=== PATIENT | male | born 1945 | race Caucasian/White ===

== ENCOUNTER 2016-09-05 08:29 | Outpatient (CLI) | payer MEDICARE, BC | END 2016-09-05 08:30 | disposition home or self-care (01) | DX: I21.3 ST elevation (STEMI) myocardial infarction of unspecified site (principal); R31.9 Hematuria, unspecified; I10 Essential (primary) hypertension; E78.5 Hyperlipidemia, unspecified; D53.9 Nutritional anemia, unspecified ==

== ENCOUNTER 2016-09-07 08:56 | Outpatient (CLI) | payer MEDICARE, BC | END 2016-09-07 08:57 | disposition home or self-care (01) | DX: Z12.5 Encounter for screening for malignant neoplasm of prostate (principal) | CPT/HCPCS: 36415; G0103 ==

== ENCOUNTER 2017-04-01 08:00 | Outpatient (CLI) | payer MEDICARE, BC ==
[2017-04-01 18:15] LABS: BILIRUBIN,URINE NEGATIVE (NEGATIVE); PH,URINE 5.5 PH (5.0-7.5)
[2017-04-01 18:35] LABS: WBC,URINE 0-3 /HPF (0-3)
== END 2017-04-01 08:01 | disposition home or self-care (01) ==
LOC: LAB.F 08:00
PROVIDERS: ATTEND Internal Medicine
DX: M54.5 Low back pain (principal)
CPT/HCPCS: 81001

== ENCOUNTER 2017-05-29 12:22 | Outpatient (CLI) | payer MEDICARE, BC ==
[2017-05-29 11:48] LABS: BILIRUBIN,URINE NEGATIVE (NEGATIVE)
[2017-05-29 12:08] LABS: UR CULTURE IF IND NOT INDICATED; WBC,URINE 0-3 /HPF (0-3)
== END 2017-05-29 12:23 | disposition home or self-care (01) ==
LOC: LAB.R 12:22
PROVIDERS: ATTEND Nurse Practitioner Family
DX: R30.0 Dysuria (principal)
CPT/HCPCS: 81001; 87086

== ENCOUNTER 2018-05-08 08:22 | Outpatient (CLI) | payer MEDICARE, BC ==
[2018-05-08 10:36] LABS: HGB - HEMOGLOBIN 14.4 g/dL (14.0-18.0); MEAN CORPUSCULAR HEMOGLOBIN 35.6 pg (27.0-31.0); MEAN CORPUSCULAR HGB CONC 35.8 g/dL (32.0-36.0); MEAN CORPUSCULAR VOLUME 99.6 fL (80.0-94.0); MEAN PLATELET VOLUME 7.3 fL (7.4-11.4); RED BLOOD COUNT 4.04 10^6/uL (4.70-6.10); RED CELL DISTRIBUTION WIDTH 12.9 % (12.0-15.0); WHITE BLOOD COUNT 2.6 x10^3/uL (4.8-10.8)
[2018-05-08 10:55] LABS: ALBUMIN 4.4 g/dL (3.2-5.5); ALBUMIN/GLOBULIN RATIO 1.8 (1.0-2.2); ALKALINE PHOSPHATASE 49 IU/L (42-121); ALT ALANINE AMINOTRANSFERASE 29 IU/L (10-60); AST ASPARTATE AMINOTRANSFERASE 24 IU/L (10-42); BILIRUBIN,TOTAL 1.4 mg/dL (0.2-1.0); BUN - BLOOD UREA NITROGEN 6 mg/dL (6-20); CALCIUM 9.2 mg/dL (8.5-10.3); CARBON DIOXIDE - CO2 27 mmol/L (21-32); CHLORIDE 102 mmol/L (101-111); CHOL/HDL RATIO 3.8 (<5.0); CHOLESTEROL 187 mg/dL; CREATININE 0.9 mg/dL (0.6-1.2); GFR - MDRD 83 (>89); GLUCOSE 107 mg/dL (70-100); HDL CHOLESTEROL 49 mg/dL; LDL CHOLESTEROL,CALCULATED 98 mg/dL; SODIUM 138 mmol/L (135-145); TOTAL PROTEIN 6.9 g/dL (6.7-8.2); VLDL CHOLESTEROL 40 mg/dL
== END 2018-05-08 08:23 | disposition home or self-care (01) ==
LOC: LAB.F 08:22
PROVIDERS: ATTEND Internal Medicine
DX: R53.83 Other fatigue (principal); E78.5 Hyperlipidemia, unspecified
CPT/HCPCS: 36415; 80053; 80061; 83721; 84443; 85027

== ENCOUNTER 2018-09-17 08:00 | Outpatient (CLI) | payer MEDICARE, BC ==
[2018-09-17 17:50] LABS: HGB - HEMOGLOBIN 15.3 g/dL (14.0-18.0); MEAN CORPUSCULAR HEMOGLOBIN 34.7 pg (27.0-31.0); MEAN CORPUSCULAR HGB CONC 34.7 g/dL (32.0-36.0); MEAN CORPUSCULAR VOLUME 100.2 fL (80.0-94.0); MEAN PLATELET VOLUME 7.4 fL (7.4-11.4); RED BLOOD COUNT 4.4 10^6/uL (4.70-6.10); RED CELL DISTRIBUTION WIDTH 13.2 % (12.0-15.0); WHITE BLOOD COUNT 2.8 x10^3/uL (4.8-10.8)
[2018-09-17 18:16] LABS: HB2 TOTAL 17.1 g/dL; HEMOGLOBIN A1C 0.56 g/dL; HEMOGLOBIN A1C % 5.1 % (4.6-6.2)
[2018-09-17 18:26] LABS: ALBUMIN 4.8 g/dL (3.2-5.5); ALBUMIN/GLOBULIN RATIO 1.8 (1.0-2.2); ALKALINE PHOSPHATASE 56 IU/L (42-121); ALT ALANINE AMINOTRANSFERASE 48 IU/L (10-60); AST ASPARTATE AMINOTRANSFERASE 33 IU/L (10-42); BILIRUBIN,TOTAL 1.3 mg/dL (0.2-1.0); BUN - BLOOD UREA NITROGEN 14 mg/dL (6-20); CALCIUM 9.8 mg/dL (8.5-10.3); CARBON DIOXIDE - CO2 28 mmol/L (21-32); CHLORIDE 104 mmol/L (101-111); CHOL/HDL RATIO 4.4 (<5.0); CHOLESTEROL 212 mg/dL; CREATININE 0.9 mg/dL (0.6-1.2); GFR - MDRD 83 (>89); GLUCOSE 105 mg/dL (70-100); HDL CHOLESTEROL 48 mg/dL; LDL CHOLESTEROL,CALCULATED 96 mg/dL; SODIUM 140 mmol/L (135-145); TOTAL PROTEIN 7.4 g/dL (6.7-8.2); VLDL CHOLESTEROL 68 mg/dL
== END 2018-09-17 23:59 | disposition home or self-care (01) ==
LOC: LAB.F 08:00
PROVIDERS: ATTEND Internal Medicine
DX: R06.00 Dyspnea, unspecified (principal); R73.01 Impaired fasting glucose; E78.5 Hyperlipidemia, unspecified; R53.83 Other fatigue
CPT/HCPCS: 36415; 80053; 80061; 83036; 83721; 84443; 85027

== ENCOUNTER 2018-09-20 10:28 | Outpatient (CLI) | payer MEDICARE, BC ==
--- NOTE | 2018-09-22 00:59 | XRAY Report ---
Reason: FATIGUE,DYSPNEA ON EXERTION Procedure Date: 09/20/2018 Accession Number: [id number] / [id number] Procedure: XR - Chest 2 View X-Ray CPT Code: 14576 FULL RESULT: EXAM: CHEST RADIOGRAPHY EXAM DATE: 09/20/2018 02:47 PM. CLINICAL HISTORY: FATIGUE, DYSPNEA ON EXERTION. COMPARISON: CHEST 2 VIEW PA/LAT 08/13/2015 2:20 PM. TECHNIQUE: 2 views. FINDINGS: Lungs/Pleura: No focal opacities evident. No pleural effusion. No pneumothorax. Normal volumes. Mediastinum: Heart and mediastinal contours are unremarkable. Other: Moderate mid and lower thoracic spine degenerative disk disease. IMPRESSION: No acute cardiopulmonary disease seen. RADIA
== END 2018-09-20 10:29 | disposition home or self-care (01) ==
LOC: DI 10:28
PROVIDERS: ATTEND Internal Medicine
DX: R53.83 Other fatigue (principal); R06.00 Dyspnea, unspecified
CPT/HCPCS: 71046

== ENCOUNTER 2018-10-21 08:00 | Outpatient (CLI) | payer MEDICARE, BC | END 2018-10-21 23:59 | disposition home or self-care (01) | LOC: LAB.F 08:00 | PROVIDERS: ATTEND Physician Assistant Medical | DX: E86.0 Dehydration (principal); J02.9 Acute pharyngitis, unspecified | CPT/HCPCS: 81002 ==

== ENCOUNTER 2019-03-11 14:03 | Outpatient (CLI) | payer MEDICARE, BC | END 2019-03-11 14:04 | disposition critical access hospital (66) | LOC: EMS 14:03 | PROVIDERS: ATTEND Surgery | DX: T63.461A Toxic effect of venom of wasps, accidental (unintentional), initial encounter (principal); M79.641 Pain in right hand; R07.9 Chest pain, unspecified | CPT/HCPCS: A0425; A0427 ==

== ENCOUNTER 2019-03-11 14:05 | Emergency (ER) | payer MEDICARE, BC ==
[2019-03-11] MEDS ORDERED: predniSONE 20 MG TABLET PO STA (14:27)
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
[2019-03-11 15:28] VITALS: BP 155/99
== END 2019-03-11 15:10 | disposition home or self-care (01) ==
LOC: EDUNIT# → ED 14:05
DX: T63.443A Toxic effect of venom of bees, assault, initial encounter (principal); I10 Essential (primary) hypertension
CPT/HCPCS: 99283; 99284; J7512

== ENCOUNTER 2019-06-04 09:34 | Outpatient (CLI) | payer MEDICARE, BC ==
[2019-06-04 18:11] LABS: ALBUMIN 4.6 g/dL (3.2-5.5); ALBUMIN/GLOBULIN RATIO 1.8 (1.0-2.2); ALKALINE PHOSPHATASE 51 IU/L (42-121); ALT ALANINE AMINOTRANSFERASE 32 IU/L (10-60); AST ASPARTATE AMINOTRANSFERASE 25 IU/L (10-42); BILIRUBIN,TOTAL 1.4 mg/dL (0.2-1.0); BUN - BLOOD UREA NITROGEN 17 mg/dL (6-20); CALCIUM 9.4 mg/dL (8.5-10.3); CARBON DIOXIDE - CO2 29 mmol/L (21-32); CHLORIDE 106 mmol/L (101-111); CHOL/HDL RATIO 3.5 (<5.0); CHOLESTEROL 154 mg/dL; CREATININE 0.8 mg/dL (0.6-1.2); GFR - MDRD 94 (>89); GLUCOSE 99 mg/dL (70-100); HDL CHOLESTEROL 44 mg/dL; LDL CHOLESTEROL,CALCULATED 78 mg/dL; LDL/HDL RATIO 1.8 (<3.6); SODIUM 139 mmol/L (135-145); TOTAL PROTEIN 7.2 g/dL (6.7-8.2); VLDL CHOLESTEROL 32 mg/dL
== END 2019-06-04 09:35 | disposition home or self-care (01) ==
LOC: LAB.S 09:34
PROVIDERS: ATTEND Internal Medicine
DX: E78.5 Hyperlipidemia, unspecified (principal)
CPT/HCPCS: 36415; 80053; 80061; 83721

== ENCOUNTER 2019-08-26 12:48 | Outpatient (CLI) | payer MEDICARE, BC ==
[2019-08-26 17:23] LABS: BASOPHILS % (AUTO) 0.6 %; EOSINOPHILS # (AUTO) 0.1 10^3/uL (0.0-0.7); EOSINOPHILS % (AUTO) 1.7 %; HGB - HEMOGLOBIN 14.3 g/dL (14.0-18.0); LYMPHOCYTES # (AUTO) 1.3 10^3/uL (1.5-3.5); LYMPHOCYTES % (AUTO) 26.5 %; MEAN CORPUSCULAR HEMOGLOBIN 34.7 pg (27.0-31.0); MEAN CORPUSCULAR HGB CONC 33.6 g/dL (32.0-36.0); MEAN CORPUSCULAR VOLUME 103.4 fL (80.0-94.0); MEAN PLATELET VOLUME 9.5 fL (7.4-11.4); MONOCYTES # (AUTO) 0.4 10^3/uL (0.0-1.0); MONOCYTES % (AUTO) 7.8 %; PLT - PLATELET COUNT 174 10^3/uL (130-450); RED BLOOD COUNT 4.12 10^6/uL (4.70-6.10); RED CELL DISTRIBUTION WIDTH 12.6 % (12.0-15.0); WHITE BLOOD COUNT 4.8 x10^3/uL (4.8-10.8)
[2019-08-26 18:07] LABS: ALBUMIN 4.5 g/dL (3.2-5.5); ALBUMIN/GLOBULIN RATIO 1.6 (1.0-2.2); BILIRUBIN,TOTAL 1.2 mg/dL (0.2-1.0); CALCIUM 9.7 mg/dL (8.5-10.3); CREATININE 0.9 mg/dL (0.6-1.2); CRP - C-REACTIVE PROTEIN 4.7 mg/dL (0-1.0); TOTAL PROTEIN 7.4 g/dL (6.7-8.2)
== END 2019-08-26 23:59 | disposition home or self-care (01) ==
LOC: LAB.S 12:48
PROVIDERS: ATTEND Family Medicine
DX: R10.9 Unspecified abdominal pain (principal); I10 Essential (primary) hypertension
CPT/HCPCS: 36415; 80053; 84443; 85025; 85651; 86140

== ENCOUNTER 2019-08-27 08:00 | Outpatient (CLI) | payer MEDICARE, BC | END 2019-08-27 23:59 | disposition home or self-care (01) | LOC: LAB.R 08:00 | PROVIDERS: ATTEND Family Medicine | DX: R10.9 Unspecified abdominal pain (principal) | CPT/HCPCS: 82274 ==

== ENCOUNTER 2019-09-03 18:48 | Outpatient (CLI) | payer MEDICARE, BC | END 2019-09-03 23:59 | disposition home or self-care (01) | LOC: LAB.R 18:48 | PROVIDERS: ATTEND Family Medicine | DX: K57.92 Diverticulitis of intestine, part unspecified, without perforation or abscess without bleeding (principal) | CPT/HCPCS: 82270 ==

== ENCOUNTER 2020-02-11 05:00 | Outpatient (CLI) | payer MEDICARE, BC | END 2020-02-11 23:59 | LOC: LAB.R 05:00 | PROVIDERS: ATTEND Family Medicine | DX: K57.92 Diverticulitis of intestine, part unspecified, without perforation or abscess without bleeding (principal) | CPT/HCPCS: 82274 ==

== ENCOUNTER 2020-02-24 08:11 | Outpatient (CLI) | payer MEDICARE, BC ==
[2020-02-24 14:57] LABS: BASOPHILS % (AUTO) 2.1 %; EOSINOPHILS % (AUTO) 4.6 %; HGB - HEMOGLOBIN 11.9 g/dL (14.0-18.0); LYMPHOCYTES % (AUTO) 39.4 %; MEAN CORPUSCULAR HEMOGLOBIN 35.6 pg (27.0-31.0); MEAN CORPUSCULAR HGB CONC 33.5 g/dL (32.0-36.0); MEAN CORPUSCULAR VOLUME 106.3 fL (80.0-94.0); MEAN PLATELET VOLUME 9.7 fL (7.4-11.4); MONOCYTES % (AUTO) 14.5 %; PLT - PLATELET COUNT 185 10^3/uL (130-450); RED BLOOD COUNT 3.34 10^6/uL (4.70-6.10); RED CELL DISTRIBUTION WIDTH 12.7 % (12.0-15.0); WHITE BLOOD COUNT 2.4 x10^3/uL (4.8-10.8)
[2020-02-24 15:26] LABS: ABNORMAL LYMPHS % (MANUAL) 0 %; BAND NEUTROPHILS % (MANUAL) 0 %
[2020-02-24 15:44] LABS: LYMPHOCYTES # (MANUAL) 1.1 10^3/uL (1.5-3.5); LYMPHOCYTES % (MANUAL) 44 %; MONOCYTES # (MANUAL) 0.2 10^3/uL (0.0-1.0); PLATELET ESTIMATE, MANUAL NORMAL (130-450,000) (NORMAL); PLATELET MORPHOLOGY NORMAL APPEARANCE (NORMAL); RBC MORPHOLOGY (MULTIPLE) 1+ MACROCYTOSIS (NORMAL)
[2020-02-24 15:45] LABS: DIFFERENTIAL COMMENT MANUAL DIFFERENTIAL
== END 2020-02-24 08:12 | disposition home or self-care (01) ==
LOC: LAB.S 08:11
PROVIDERS: ATTEND Family Medicine
DX: R10.9 Unspecified abdominal pain (principal); R53.83 Other fatigue
CPT/HCPCS: 36415; 82607; 82746; 85025; 85651; 86140

== ENCOUNTER 2020-07-07 07:31 | Outpatient (CLI) | payer MEDICARE, BC ==
[2020-07-07 15:19] LABS: BASOPHILS % (AUTO) 0.7 %; EOSINOPHILS % (AUTO) 4.5 %; HGB - HEMOGLOBIN 14.6 g/dL (14.0-18.0); LYMPHOCYTES % (AUTO) 40.3 %; MEAN CORPUSCULAR HEMOGLOBIN 34.4 pg (27.0-31.0); MEAN CORPUSCULAR VOLUME 104.2 fL (80.0-94.0); MEAN PLATELET VOLUME 9.4 fL (7.4-11.4); MONOCYTES % (AUTO) 13.2 %; PLT - PLATELET COUNT 169 10^3/uL (130-450); RED BLOOD COUNT 4.25 10^6/uL (4.70-6.10); RED CELL DISTRIBUTION WIDTH 14.2 % (12.0-15.0); WHITE BLOOD COUNT 2.9 x10^3/uL (4.8-10.8)
[2020-07-07 15:31] LABS: ABNORMAL LYMPHS % (MANUAL) 0 %; BAND NEUTROPHILS % (MANUAL) 0 %
[2020-07-07 15:36] LABS: ALBUMIN 4.6 g/dL (3.2-5.5); ALBUMIN/GLOBULIN RATIO 1.7 (1.0-2.2); BILIRUBIN,TOTAL 1.3 mg/dL (0.2-1.0); CALCIUM 9.7 mg/dL (8.5-10.3); CREATININE 1.1 mg/dL (0.6-1.2); TOTAL PROTEIN 7.3 g/dL (6.7-8.2)
[2020-07-07 16:42] LABS: EOSINOPHILS # (MANUAL) 0.2 10^3/uL (0-0.7); LYMPHOCYTES % (MANUAL) 36 %; MONOCYTES # (MANUAL) 0.5 10^3/uL (0.0-1.0)
[2020-07-07 16:43] LABS: DIFFERENTIAL COMMENT MANUAL DIFFERENTIAL; PLATELET ESTIMATE, MANUAL NORMAL (130-450,000) (NORMAL); PLATELET MORPHOLOGY NORMAL APPEARANCE (NORMAL); RBC MORPHOLOGY (MULTIPLE) 1+ MACROCYTOSIS (NORMAL)
== END 2020-07-07 07:32 | disposition home or self-care (01) ==
LOC: LAB.S 07:31
PROVIDERS: ATTEND Internal Medicine
DX: I10 Essential (primary) hypertension (principal); Z12.5 Encounter for screening for malignant neoplasm of prostate
CPT/HCPCS: 36415; 80053; 85025; G0103; 84153

== ENCOUNTER 2020-07-22 16:08 | Outpatient (CLI) | payer MEDICARE, BC | END 2020-07-22 16:09 | disposition home or self-care (01) | LOC: COV 16:08 | PROVIDERS: ATTEND Family Medicine | DX: J02.9 Acute pharyngitis, unspecified (principal); M79.10 Myalgia, unspecified site; Z20.828 Contact with and (suspected) exposure to other viral communicable diseases ==

== ENCOUNTER 2020-08-03 14:15 | Outpatient (CLI) | payer MEDICARE, BC ==
[2020-08-03] MEDS ORDERED: IOVERSOL 320 100 ML VIAL IVP ONE ×2 (14:27→15:38)
[2020-08-03] MEDS ORDERED: IOVERSOL 320 50 ML VIAL ONE (14:27)
[2020-08-03] MEDS ORDERED: IOVERSOL 320 50 ML VIAL PO ONE (15:38)
--- NOTE | 2020-08-03 15:54 | CT Report ---
PROCEDURE: Abdomen/Pelvis W INDICATIONS: ABD PAIN, DIVERTICULITUS CONTRAST: IV CONTRAST: Optiray 320 ml: 100 PO CONTRAST: Optiray 320 ml50 TECHNIQUE: After the administration of IV and oral contrast, 5 mm thick sections acquired from the diaphragms to the symphysis. 5 mm thick coronal and sagittal reformats were acquired. For radiation dose reducti on, the following was used: automated exposure control, adjustment of mA and/or kV according to bailey ent size. COMPARISON: 08/13/2015. FINDINGS: Image quality: Excellent. ABDOMEN: Lung bases: Mild bibasilar dependent atelectasis is seen. Heart size is normal. Solid organs: Liver and spleen are normal in size and enhancement. Gallbladder is within normal mar its. Biliary system is non dilated. Pancreas enhances normally. No adrenal nodules. Kidneys demon strate normal size and enhancement, without hydronephrosis. Peritoneum and bowel: There is no evidence of bowel obstruction. Extensive colonic diverticulosis is seen. There is diffuse colonic wall thickening as well as significant wall thickening involving termi nal ileum and right lower quadrant abdomen with narrowing of the lumen and mild adjacent mesenteric f at stranding. No abscess collection. No free fluid or free air. Small hiatal hernia is seen. Nodes and vessels: No retroperitoneal or mesenteric adenopathy by size criteria. Aorta and inferior vena cava are normal in size. Miscellaneous: No ventral hernias. PELVIS: Genitourinary: Bladder wall thickness is normal. Miscellaneous: No inguinal hernias or adenopathy. Bones: No suspicious bony lesions. No vertebral body compression fractures. Post fusion changes at L5-S1 level are seen. IMPRESSION: 1. Diffuse colonic wall thickening and extensive wall thickening involving distal ileum in right lowe r quadrant abdomen with narrowing of the lumen and adjacent mesenteric fat stranding. Finding is most consistent with infectious or inflammatory enterocolitis. No bowel obstruction. No free fluid or mike e air. Extensive colonic diverticulosis without CT evidence of focal acute diverticulitis. No abscess collection. 2. Mild bibasilar dependent atelectasis. Reviewed by: Satish Manzanares MD on 08/03/2020 3:53 PM PST Approved by: Satish Manzanares MD on 08/03/2020 3:53 PM PST Station ID: [id number]
== END 2020-08-03 14:16 | disposition home or self-care (01) ==
LOC: DI 14:15
PROVIDERS: ATTEND Internal Medicine
DX: R10.9 Unspecified abdominal pain (principal); K57.92 Diverticulitis of intestine, part unspecified, without perforation or abscess without bleeding
CPT/HCPCS: 74177; Q9967

== ENCOUNTER 2020-08-08 07:00 | Outpatient (CLI) | payer MEDICARE, BC ==
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
== END 2020-08-08 23:59 | disposition home or self-care (01) ==
LOC: LAB.R 07:00
PROVIDERS: ATTEND Surgery
DX: R10.9 Unspecified abdominal pain (principal); R19.5 Other fecal abnormalities
CPT/HCPCS: 81599; 87045; 87046; 87177; 87209; 87427

== ENCOUNTER 2020-08-12 10:34 | Day surgery (SDC) | payer MEDICARE, BC ==
[2020-08-12] MEDS ORDERED: LACTATED RINGERS 1,000 ML IV ONE (10:57)
[2020-08-12] MEDS ORDERED: fentaNYL 250 MCG/5 ML VIAL ONE (12:52)
[2020-08-12] MEDS ORDERED: MIDAZOLAM 2 MG/2 ML VIAL ONE ×2 (12:52→13:10)
[2020-08-12] MEDS ORDERED: LACTATED RINGERS 400 ML IV ONE (13:35)
[2020-08-12 14:02] VITALS: BP 119/73
--- OUTSIDE RECORDS SUMMARY | 2020-08-17 01:33 | EXTERNAL MEDICAL SUMMARY RPT | Continuity of Care Document ---
:1945 Demographics Phone Unavailable Preferred Language Lithuanian Marital Status Unknown Hindu Affiliation Unknown Race Unknown Ethnic Group Unknown Author Organization [facility] Address [address] [place] [address] Phone Care Team Providers Name Role Phone MD Unavailable Unavailable Picco Unavailable Unavailable Cori Unavailable Unavailable Holder Unavailable Unavailable Rochier Unavailable Unavailable CORI Unavailable Unavailable Jadiel Unavailable Unavailable Problems date description facility 2012-12-03 09:46 NEUTROPENIA, UNSPECIFIED [facility] 2012-12-03 09:46 ELEV TRANSAMINASE/LDH [facility] 2013-01-22 12:55 HYPERLIPIDEMIA NEC/NOS [facility] 2013-01-22 12:55 LEUKOCYTOPENIA, UNSPECIFIED [facility] 2013-01-22 12:55 BENIGN HYPERTENSION [facility] 2013-01-22 12:55 IMPAIRED FASTING GLUCOSE [facility] 2013-01-22 12:55 ABN BLOOD CHEMISTRY NEC [facility] 2013-01-22 12:55 OTH MED,LT,CURRENT USE [facility] 2013-03-09 08:27 HEMATURIA, UNSPECIFIED [facility] 2013-03-09 08:27 ABDOMINAL PAIN, UNSPECIFIED SITE [facility] 2013-03-16 10:28 ABDOMINAL PAIN, UNSPECIFIED SITE [facility] 2013-03-18 12:14 PURE HYPERCHOLESTEROLEM [facility] 2013-03-18 12:14 DEHYDRATION [facility] 2013-03-18 12:14 HYPERTENSION NOS [facility] 2013-03-18 12:14 OLD MYOCARDIAL INFARCT [facility] 2013-03-18 12:14 CORON ATHEROSCLER NOS TYPE VESSEL, [facility] [place] [facility] 2013-03-18 12:14 DIZZINESS AND GIDDINESS [facility] 2013-03-18 12:14 OTH MALAISE FATIGUE [facility] 2013-06-02 11:19 LEUKOCYTOPENIA, UNSPECIFIED [facility] 2013-06-05 16:03 ABDOMINAL PAIN, UNSPECIFIED SITE [facility] 2013-08-10 06:20 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 2013-08-10 06:20 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 2013-08-10 06:20 IMPOTENCE, ORGANIC ORIGN [facility] 2013-08-10 06:20 SPERMATOCELE [facility] 2013-08-10 06:20 TORSION OF TESTIS, [facility] UNITIF[facility] 2013-08-10 06:20 HISTORY OF TOBACCO USE [facility] 2013-08-10 06:20 PERCUTANEOUS TRANSLUM CORON [facility] ANGIOPLASTY STATUS 2013-08-17 06:06 HYPERLIPIDEMIA NEC/NOS [facility] 2013-08-17 06:06 OTH MED,LT,CURRENT USE [facility] 2013-10-01 11:06 FEVER, UNSPECIFIED [facility] 2013-10-01 11:06 ABDOMINAL PAIN, UNSPECIFIED SITE [facility] 2013-10-01 13:17 URIN TRACT INFECTION NOS [facility] 2013-12-14 11:20 LEUKOCYTOPENIA, UNSPECIFIED [facility] 2013-12-14 11:20 HYPERTENSION NOS [facility] 2013-12-14 11:20 ESOPHAGEAL REFLUX [facility] 2014-06-01 09:45 HYPERTROPHY (BENIGN) OF PROSTATE W [facility] URINARY OBST OTH LUTS 2014-06-11 10:53 HYPERLIPIDEMIA NEC/NOS [facility] 2014-06-11 10:[address] 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 2015-05-31 09:52 IMPAIRED FASTING GLUCOSE [facility] 2015-06-29 09:03 THROMBOCYTOPENIA, UNSPECIFIED [facility] 2015-07-05 10:44 OTHER DISORDERS OF BILIRUBIN [facility] METABOLISM 2015-07-11 11:25 BILATERAL PRIMARY OSTEOARTHRITIS [facility] OF HIP 2015-07-18 15:43 OTH SYMPTOMS AND SIGNS INVOLVING [facility] THE CIRC AND RESP SYSTEMS 2015-08-13 13:37 ESSENTIAL (PRIMARY) HYPERTENSION [facility] 2015-08-13 13:37 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 2015-08-13 13:37 OTHER CHEST PAIN [facility] 2015-08-13 13:37 CHEST PAIN, UNSPECIFIED [facility] 2016-09-05 08:29 NUTRITIONAL ANEMIA, UNSPECIFIED [facility] 2016-09-05 08:29 HYPERLIPIDEMIA, UNSPECIFIED [facility] 2016-09-05 08:29 ESSENTIAL (PRIMARY) HYPERTENSION [facility] 2016-09-05 08:29 ST ELEVATION (STEMI) MYOCARDIAL [facility] INFARCTION OF UNSP SITE 2016-09-05 08:29 H[facility]ATURIA, [facility] 2016-09-07 08:56 ENCOUNTER FOR SCREENING FOR [facility] MALIGNANT NEOPLASM OF PROSTATE 2017-04-01 08:00 LOW BACK PAIN [facility] 2017-05-28 08:00 DYSURIA [facility] 2017-06-06 11:29 OTHER SPONDYLOSIS, LUMBAR REGION [facility] 2017-06-06 11:29 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, LUMBAR REGION 2017-06-06 11:29 LOW BACK PAIN [facility] 2017-06-06 11:29 ARTHRODESIS STATUS [facility] 2018-05-08 08:22 HYPERLIPIDEMIA, UNSPECIFIED [facility] 2018-05-08 08:22 OTHER FATIGUE [facility] 2018-09-17 08:00 HYPERLIPIDEMIA, UNSPECIFIED [facility] 2018-09-17 08:00 DYSPNEA, [facility]NSPECIFIED [facility] 2018-09-17 08:00 OTHER FATIGUE [facility] 2018-09-17 08:00 IMPAIRED FASTING GLUCOSE [facility] 2018-09-20 10:28 DYSPNEA, UNSPECIFIED [facility] 2018-09-20 10:28 OTHER FATIGUE [facility] 2019-03-11 14:05 ESSENTIAL (PRIMARY) HYPERTENSION [facility] 2019-03-11 14:05 [facility] 2019-03-11 14:05 TO[facility], [facility]ITIAL ENCOUNTER 2019-06-04 09:34 HYPERLIPIDEMIA, UNSPECIFIED [facility] 2019-08-26 12:48 ESSENTIAL (PRIMARY) HYPERTENSION [facility] 2019-08-26 12:48 UNSPECIFIED ABDOMINAL PAIN [facility] 2019-08-27 08:00 UNSPECIFIED ABDOMINAL PAIN [facility] 2019-09-03 18:48 DVTRCLI OF INTEST, PART UNSP, W/O [facility] PERF OR ABSCESS W/O BLEED 2020-02-11 05:00 DVTRCLI OF INTEST, PART UNSP, W/O [facility] PERF OR ABSCESS W/O BLEED 2020-02-24 08:11 UNSPECIFIED [facility] 2020-02-24 08:11 OTHER FATIGUE [facility] 2020-07-07 07:31 ESSENTIAL (PRIMARY) HYPERTENSION [facility] 2020-07-07 07:31 ENCOUNTER FOR SCREENING FOR [facility] MALIGNANT NEOPLASM OF PROSTATE 2020-07-11 00:00:00 [facility] 2020-07-11 00:00:00 COMPREHENSIVE METABOLIC PANEL [facility] 2020-07-11 00:00:[address] [facility] 2020-07-11 00:00:00 CBC W/Diff/Plt [facility] 2020-07-11 00:00:00 Encounter for screening for [facility] malignant neoplasm of colon [facility] 2020-07-11 00:00:00 Tobacco use and exposure [facility] 2020-07-11 00:00:00 Screening for malignant [facility] 2020-07-11 00:00:00 Little interest or pleasure in [facility] doing things? [facility] 2020-07-11 00:00:00 Feeling down, depressed, or [facility] hopeless? [facility] 2020-07-11 00:00:00 Patient Health Questionnaire 2 [facility] item (PHQ2) total score [facility] 2020-07-11 00:00:00 Tobacco smoking status NHIS [facility] 2020-07-11 00:00:00 [facility] 2020-08-03 00:00:00 Diverticulitis of colon without [facility] mention of hemorrhage [facility] 2020-08-03 00:00:00 Blood in stool [facility] 2020-08-03 00:00:00 Ab[facility], [facility]00 [facility] 2020-08-03 00:00:00 CT [facility] 2020-08-03 00:00:00 Diverticulitis of intestine, part [facility] unspecified, without perforation or [place] [facility] abscess without bleeding 2020-08-03 00:00:00 Unspecified abdominal pain [facility] 2020-08-03 00:00:00 Other fecal abnormalities [facility] 2020-08-03 00:00:00 [facility]ool [facility]00 [facility]:00:00 Tobacco use and exposure [facility] 2020-08-03 00:00:00 [facility] 2020-08-03 00:00:00 Tobacco smoking status OHIS [facility] 2020-08-03 00:00:00 [facility] 2020-08-04 00:00:[address] [facility] 2020-08-04 00:00:00 STOOL FOR O&P [facility] 2020-08-04 00:00:[address] [facility] 2020-08-04 00:00:00 Health-related behavior [facility] 2020-08-04 00:00:00 Tobacco use and exposure [facility] 2020-08-04 00:00:00 [facility] 2020-08-04 00:00:00 Details of drug misuse behavior idb [facility] 2020-08-04 00:00:[address] [facility] 2020-08-04 00:00:00 Tobacco smoking status OHIS [facility] 2020-08-04 00:00:00 [facility] 2020-08-08 00:00 UNSPECIFIED ABDOMINAL PAIN [facility] 2020-08-08 00:00 OTHER FECAL ABNORMALITIES [facility] 2020-08-08 07:00 UNSPECIFIED ABDOMINAL PAIN [facility] 2020-08-08 07:00 OTHER FECAL ABNORMALITIES [facility] Allergies date description facility [facility] NO KNOWN ALLERGIES [facility] ciprofl[facility] PENICILLINS [facility] OXYCODONE [facility] ADHESIVE TAPE-SILICONES [facility] ciprofloxacin [facility] PENICILLINS [facility] NO KNOWN ALLERGIES [facility] ciprofloxacin [facility] DULOXETINE [facility] GABAPENTIN [facility] METHYLPREDNISOLONE [facility] MORPHINE [facility] NAPROXEN [facility] PROMETHAZINE [facility] NO KNOWN ENVIRONMENTAL ALLERGIES [facility] NSAIDS [facility] CELECOXIB [facility] CODEINE [facility] DICLOFENAC SODIUM [facility] PENICILLIN [facility] TRAMADOL [facility] NO ALLERGY INFORMATION AVAILABLE [facility] CHARLES INHIBITORS [facility] [...] 2020-07-11 00:00:00 null [facility] 2020-07-11 00:00:00 null [facility] 2020-07-11 00:00:00 AMOXICILLIN-POT CLAVULANATE [facility] 2020-07-11 00:00:00 AMOXICILLIN-POT CLAVULANATE [facility] 2020-08-04 00:00:00 null [facility] 2020-08-04 00:00:00 null [facility] 2020-08-04 00:00:00 NA SULFATE-K SULFATE-MG SULF [facility] 2020-08-04 00:00:00 NA SULFATE-K SULFATE-MG SULF [facility] Procedures date description facility 2020-08-03 00:00:00 CT [facility]BDOMEN[facility]LVIS [facility] date description facility 2020-08-03 00:00:00 CT ABDOMEN/PELVIS W/WO [facility] date description facility 2020-08-03 00:00:00 [facility] date description facility 2020-08-04 00:00:00 Stool Culture [facility] date description facility 2020-08-04 00:00:00 STOOL FOR O&P [facility] date description facility 2020-08-04 00:00:00 [facility] Results Social History date description facility 2020-07-11 00:00:00 Former smoker [facility] date description facility 2020-08-03 00:00:00 Former smoker [facility] date description facility 2020-08-04 00:00:00 Former smoker [facility] Social History date description facility 2020-07-11 00:00:00 Former smoker [facility] date description facility 2020-08-03 00:00:00 Former smoker [facility] date description facility 2020-08-04 00:00:00 [facility] smoker [facility] date description facility [phone]
== END 2020-08-12 10:35 | disposition home or self-care (01) ==
LOC: SDS 10:34
PROVIDERS: ATTEND Surgery
PROC: 0DBE8ZX Excision of Large Intestine, Via Natural or Artificial Opening Endoscopic, Diagnostic (ICD-10-PCS; principal; 2020-08-12 11:45)
DX: K57.30 Diverticulosis of large intestine without perforation or abscess without bleeding (principal); R63.0 Anorexia; I10 Essential (primary) hypertension; Z68.27 Body mass index [BMI] 27.0-27.9, adult; E78.00 Pure hypercholesterolemia, unspecified; K21.9 Gastro-esophageal reflux disease without esophagitis; K44.9 Diaphragmatic hernia without obstruction or gangrene; I25.10 Atherosclerotic heart disease of native coronary artery without angina pectoris; Z79.82 Long term (current) use of aspirin; Z87.891 Personal history of nicotine dependence
CPT/HCPCS: 45380; J3010; J7120

== ENCOUNTER 2021-01-11 09:02 | Outpatient (CLI) | payer MEDICARE, BC ==
[2021-01-11 15:40] LABS: ALBUMIN 4.5 g/dL (3.2-5.5); ALBUMIN/GLOBULIN RATIO 1.9 (1.0-2.2); ALKALINE PHOSPHATASE 37 IU/L (42-121); ALT ALANINE AMINOTRANSFERASE 20 IU/L (10-60); AST ASPARTATE AMINOTRANSFERASE 23 IU/L (10-42); BILIRUBIN,TOTAL 1.4 mg/dL (0.2-1.0); BUN - BLOOD UREA NITROGEN 14 mg/dL (6-20); CALCIUM 9.5 mg/dL (8.5-10.3); CARBON DIOXIDE - CO2 27 mmol/L (21-32); CHLORIDE 105 mmol/L (101-111); CHOL/HDL RATIO 3.4 (<5.0); CHOLESTEROL 169 mg/dL; GFR - MDRD 73 (>89); GLUCOSE 99 mg/dL (70-100); HDL CHOLESTEROL 49 mg/dL; LDL CHOLESTEROL,CALCULATED 83 mg/dL; LDL/HDL RATIO 1.7 (<3.6); POTASSIUM 4.2 mmol/L (3.5-5.0); SODIUM 140 mmol/L (135-145); TOTAL PROTEIN 6.9 g/dL (6.7-8.2); TRIGLYCERIDES 183 mg/dL; VLDL CHOLESTEROL 37 mg/dL
[2021-01-11 15:46] LABS: BASOPHILS % (AUTO) 1.4 %; EOSINOPHILS % (AUTO) 4.6 %; HCT - HEMATOCRIT 39.9 % (42.0-52.0); HGB - HEMOGLOBIN 13.4 g/dL (14.0-18.0); LYMPHOCYTES % (AUTO) 36.6 %; MEAN CORPUSCULAR HEMOGLOBIN 35.5 pg (27.0-31.0); MEAN CORPUSCULAR HGB CONC 33.6 g/dL (32.0-36.0); MEAN CORPUSCULAR VOLUME 105.8 fL (80.0-94.0); MEAN PLATELET VOLUME 9.8 fL (7.4-11.4); MONOCYTES % (AUTO) 15.3 %; NEUTROPHILS % (AUTO) 41.6 %; PLT - PLATELET COUNT 168 10^3/uL (130-450); RED BLOOD COUNT 3.77 10^6/uL (4.70-6.10); WHITE BLOOD COUNT 2.2 x10^3/uL (4.8-10.8)
[2021-01-11 15:52] LABS: ABNORMAL LYMPHS % (MANUAL) 0 %; BAND NEUTROPHILS % (MANUAL) 0 %
[2021-01-11 16:59] LABS: BASOPHILS % (MANUAL) 1 %; EOSINOPHILS # (MANUAL) 0.1 10^3/uL (0-0.7); LYMPHOCYTES # (MANUAL) 0.8 10^3/uL (1.5-3.5); LYMPHOCYTES % (MANUAL) 38 %; MONOCYTES # (MANUAL) 0.2 10^3/uL (0.0-1.0)
[2021-01-11 17:00] LABS: DIFFERENTIAL COMMENT MANUAL DIFFERENTIAL; PLATELET ESTIMATE, MANUAL NORMAL (130-450,000) (NORMAL); PLATELET MORPHOLOGY NORMAL APPEARANCE (NORMAL); WBC MORPHOLOGY (MULTIPLE) NORMAL APPEARANCE (NORMAL)
== END 2021-01-11 09:03 | disposition home or self-care (01) ==
LOC: LAB.S 09:02
PROVIDERS: ATTEND Internal Medicine
DX: I10 Essential (primary) hypertension (principal)
CPT/HCPCS: 36415; 80053; 80061; 83721; 85025

== ENCOUNTER 2021-07-07 07:28 | Outpatient (CLI) | payer MEDICARE, BC ==
[2021-07-07 15:26] LABS: BASOPHILS % (AUTO) 1.2 %; EOSINOPHILS # (AUTO) 0.1 10^3/uL (0.0-0.7); EOSINOPHILS % (AUTO) 4.8 %; HCT - HEMATOCRIT 44.2 % (42.0-52.0); LYMPHOCYTES # (AUTO) 1.1 10^3/uL (1.5-3.5); LYMPHOCYTES % (AUTO) 41.8 %; MEAN CORPUSCULAR HEMOGLOBIN 34.9 pg (27.0-31.0); MEAN CORPUSCULAR HGB CONC 33.9 g/dL (32.0-36.0); MEAN CORPUSCULAR VOLUME 102.8 fL (80.0-94.0); MEAN PLATELET VOLUME 9.4 fL (7.4-11.4); MONOCYTES # (AUTO) 0.3 10^3/uL (0.0-1.0); MONOCYTES % (AUTO) 12.4 %; NEUTROPHILS % (AUTO) 39.8 %; PLT - PLATELET COUNT 154 10^3/uL (130-450); RED CELL DISTRIBUTION WIDTH 12.3 % (12.0-15.0); WHITE BLOOD COUNT 2.5 x10^3/uL (4.8-10.8)
[2021-07-07 15:30] LABS: SLIDE REVIEW? Indicated
[2021-07-07 15:47] LABS: ALBUMIN 4.5 g/dL (3.2-5.5); ALBUMIN/GLOBULIN RATIO 1.9 (1.0-2.2); ALKALINE PHOSPHATASE 47 IU/L (42-121); ALT ALANINE AMINOTRANSFERASE 31 IU/L (10-60); AST ASPARTATE AMINOTRANSFERASE 26 IU/L (10-42); BILIRUBIN,TOTAL 1.2 mg/dL (0.2-1.0); BUN - BLOOD UREA NITROGEN 15 mg/dL (6-20); CALCIUM 9.6 mg/dL (8.5-10.3); CARBON DIOXIDE - CO2 28 mmol/L (21-32); CHLORIDE 102 mmol/L (101-111); CHOLESTEROL 175 mg/dL; GFR - MDRD 73 (>89); GLUCOSE 105 mg/dL (70-100); HDL CHOLESTEROL 44 mg/dL; LDL CHOLESTEROL,CALCULATED 97 mg/dL; LDL/HDL RATIO 2.2 (<3.6); POTASSIUM 4.6 mmol/L (3.5-5.0); SODIUM 138 mmol/L (135-145); TOTAL PROTEIN 6.9 g/dL (6.7-8.2); TRIGLYCERIDES 171 mg/dL; VLDL CHOLESTEROL 34 mg/dL
[2021-07-07 16:22] LABS: PLATELET ESTIMATE, MANUAL NORMAL (130-450,000) (NORMAL); PLATELET MORPHOLOGY NORMAL APPEARANCE (NORMAL); RBC MORPHOLOGY (MULTIPLE) 1+ MACROCYTOSIS (NORMAL); WBC MORPHOLOGY (MULTIPLE) NORMAL APPEARANCE (NORMAL)
== END 2021-07-07 07:29 | disposition home or self-care (01) ==
LOC: LAB.S 07:28
PROVIDERS: ATTEND Internal Medicine
DX: I10 Essential (primary) hypertension (principal); E78.5 Hyperlipidemia, unspecified
CPT/HCPCS: 36415; 80053; 80061; 83721; 85025

== ENCOUNTER 2021-10-05 08:59 | Outpatient (CLI) | payer MEDICARE, BC ==
[2021-10-05 15:13] LABS: BASOPHILS % (AUTO) 1.3 %; EOSINOPHILS # (AUTO) 0.1 10^3/uL (0.0-0.7); EOSINOPHILS % (AUTO) 3.5 %; HCT - HEMATOCRIT 41.5 % (42.0-52.0); HGB - HEMOGLOBIN 14.5 g/dL (14.0-18.0); LYMPHOCYTES # (AUTO) 1.1 10^3/uL (1.5-3.5); LYMPHOCYTES % (AUTO) 35.3 %; MEAN CORPUSCULAR HEMOGLOBIN 35.5 pg (27.0-31.0); MEAN CORPUSCULAR HGB CONC 34.9 g/dL (32.0-36.0); MEAN CORPUSCULAR VOLUME 101.5 fL (80.0-94.0); MEAN PLATELET VOLUME 9.5 fL (7.4-11.4); MONOCYTES # (AUTO) 0.4 10^3/uL (0.0-1.0); MONOCYTES % (AUTO) 12.5 %; NEUTROPHILS # (AUTO) 1.5 10^3/uL (1.5-6.6); NEUTROPHILS % (AUTO) 47.4 %; PLT - PLATELET COUNT 184 10^3/uL (130-450); RED BLOOD COUNT 4.09 10^6/uL (4.70-6.10); RED CELL DISTRIBUTION WIDTH 12.5 % (12.0-15.0); WHITE BLOOD COUNT 3.1 x10^3/uL (4.8-10.8)
[2021-10-05 15:29] LABS: ALBUMIN 4.5 g/dL (3.2-5.5); ALBUMIN/GLOBULIN RATIO 1.6 (1.0-2.2); ALKALINE PHOSPHATASE 55 IU/L (42-121); ALT ALANINE AMINOTRANSFERASE 30 IU/L (10-60); AST ASPARTATE AMINOTRANSFERASE 23 IU/L (10-42); BUN - BLOOD UREA NITROGEN 18 mg/dL (6-20); CALCIUM 9.4 mg/dL (8.5-10.3); CARBON DIOXIDE - CO2 29 mmol/L (21-32); CHLORIDE 103 mmol/L (101-111); CHOL/HDL RATIO 3.6 (<5.0); CHOLESTEROL 172 mg/dL; GFR - MDRD 73 (>89); GLUCOSE 107 mg/dL (70-100); HDL CHOLESTEROL 48 mg/dL; LDL CHOLESTEROL,CALCULATED 93 mg/dL; LDL/HDL RATIO 1.9 (<3.6); POTASSIUM 4.5 mmol/L (3.5-5.0); SODIUM 139 mmol/L (135-145); TOTAL PROTEIN 7.3 g/dL (6.7-8.2); TRIGLYCERIDES 154 mg/dL; VLDL CHOLESTEROL 31 mg/dL
== END 2021-10-05 09:00 | disposition home or self-care (01) ==
LOC: LAB.S 08:59
PROVIDERS: ATTEND Internal Medicine
DX: I10 Essential (primary) hypertension (principal); E78.5 Hyperlipidemia, unspecified; D72.819 Decreased white blood cell count, unspecified
CPT/HCPCS: 36415; 80053; 80061; 83721; 85025

== ENCOUNTER 2021-10-09 09:18 | Outpatient (CLI) | payer MEDICARE, BC ==
[2021-10-11 10:37] LABS: IMMUNOGLOBULIN A 151 mg/dL (70-320); IMMUNOGLOBULIN G 946 mg/dL (600-1540); IMMUNOGLOBULIN M 58 mg/dL (50-300)
== END 2021-10-09 09:19 | disposition home or self-care (01) ==
LOC: LAB.S 09:18
PROVIDERS: ATTEND Internal Medicine
DX: D72.819 Decreased white blood cell count, unspecified (principal)
CPT/HCPCS: 82784

== ENCOUNTER 2022-01-04 14:40 | Outpatient (CLI) | payer MEDICARE, BC | END 2022-01-04 23:59 | disposition home or self-care (01) | LOC: LAB 14:40 | PROVIDERS: ATTEND Physician Assistant | DX: N41.9 Inflammatory disease of prostate, unspecified (principal) | CPT/HCPCS: 87086 ==

== ENCOUNTER 2022-02-13 08:00 | Outpatient (CLI) | payer MEDICARE, BC ==
--- NOTE | 2022-02-13 17:31 | XRAY Report ---
PROCEDURE: Knee 4 View BILAT INDICATIONS: BILATERAL KNEE PAIN TECHNIQUE: 4 views of the bilateral knee(s) were acquired. COMPARISON: None. FINDINGS: Bones: No fractures or dislocations. No suspicious bony lesions. There is moderate bilateral media l as well as minimal lateral and moderate right and [id number] left patellofemoral compartment narrowing. No particular osteophytes are present without erosions. Soft tissues: Minimal bilateral effusions. No suspicious soft tissue calcifications. IMPRESSION: Arthritic changes most severe medially as above. Reviewed by: Guerline Mcbride MD on 02/13/2022 5:29 PM PDT Approved by: Guerline Mcbride MD on 02/13/2022 5:29 PM PDT Station ID: [id number]
== END 2022-02-13 23:59 | disposition home or self-care (01) ==
LOC: DI.S 08:00
PROVIDERS: ATTEND Physician Assistant
DX: M17.0 Bilateral primary osteoarthritis of knee (principal)

== ENCOUNTER 2022-05-28 09:18 | Outpatient (CLI) | payer MEDICARE, BC ==
[2022-05-28 15:06] LABS: ALBUMIN 4.6 g/dL (3.2-5.5); BILIRUBIN,DIRECT 0.2 mg/dL (0.1-0.5); BILIRUBIN,TOTAL 1.2 mg/dL (0.2-1.0); TOTAL PROTEIN 7.1 g/dL (6.7-8.2)
== END 2022-05-28 09:19 | disposition home or self-care (01) ==
LOC: LAB.S 09:18
PROVIDERS: ATTEND Physician Assistant Medical
DX: B35.1 Tinea unguium (principal); Z79.899 Other long term (current) drug therapy
CPT/HCPCS: 36415; 80076

== ENCOUNTER 2022-07-10 09:42 | Outpatient (CLI) | payer MEDICARE, BC ==
[2022-07-10 15:23] LABS: ALBUMIN 4.4 g/dL (3.2-5.5); BILIRUBIN,DIRECT 0.1 mg/dL (0.1-0.5); BILIRUBIN,TOTAL 0.9 mg/dL (0.2-1.0); TOTAL PROTEIN 7.3 g/dL (6.7-8.2)
== END 2022-07-10 09:43 | disposition home or self-care (01) ==
LOC: LAB.S 09:42
PROVIDERS: ATTEND Physician Assistant Medical
DX: B35.1 Tinea unguium (principal); Z79.899 Other long term (current) drug therapy
CPT/HCPCS: 36415; 80076

== ENCOUNTER 2022-08-24 13:15 | Emergency (ER) | payer MEDICARE, BC ==
--- OUTSIDE RECORDS SUMMARY | 2022-08-24 13:52 | EXTERNAL MEDICAL SUMMARY RPT | Continuity of Care Document ---
:1945 Author Organization [facility] Address [address] [place] [address] Phone Care Team Providers Name Role Phone Unavailable Unavailable Unavailable Traci Londono Unavailable Unavailable Allergies No information. Encounters No information. Functional Status No information. Immunizations No information. Medications date description facility 2022-05-28 00:00 BLOOD BUILDER SUPPLEMENT (NATURAL Walk -In [facility] Primary Care & IRON, VITAMIN B-12, VIT C) Ancillary [facility] 2022-05-29 00:00 BLOOD BUILDER SUPPLEMENT (NATURAL Walk -In Clinic Primary Care & IRON, VITAMIN B-12, VIT C) Ancillary [facility] 2022-06-25 00:00 BLOOD BUILDER SUPPLEMENT (NATURAL Walk -In Clinic Primary Care & IRON, VITAMIN B-12, VIT C) Ancillary [facility] 2022-07-10 00:00 BLOOD BUILDER SUPPLEMENT (NATURAL Walk -In Clinic Primary Care & IRON, VITAMIN B-12, VIT C) Ancillary [facility] 2022-07-12 00:00 BLOOD BUILDER SUPPLEMENT (NATURAL Walk -In Clinic Primary Care & IRON, VITAMIN B-12, VIT C) Ancillary [facility] 2022-08-07 00:00 BLOOD BUILDER SUPPLEMENT (NATURAL Walk -In Clinic Primary Care & IRON, VITAMIN B-12, VIT C) Ancillary [facility] 2022-08-08 00:00 BLOOD BUILDER SUPPLEMENT (NATURAL Walk -In Clinic Primary Care & IRON, VITAMIN B-12, VIT C) Ancillary [facility] 2022-08-09 00:00 BLOOD BUILDER SUPPLEMENT (NATURAL Walk -In Clinic Primary Care & IRON, VITAMIN B-12, VIT C) Ancillary [facility] 2022-08-24 00:00 BLOOD BUILDER SUPPLEMENT (NATURAL Walk -In Clinic Primary Care & IRON, VITAMIN B-12, VIT C) Ancillary [facility] 2022-05-28 00:00 MULTIPLE VITAMIN Walk[facility] 2022-05-29 00:00 MULTIPLE VITAMIN [facility] Services [facility] 2022-06-25 00:00 MULTIPLE VITAMIN [facility] 2022-07-10 00:00 MULTIPLE VITAMIN [facility] 2022-07-12 00:00 MULTIPLE VITAMIN [facility] 2022-08-07 00:00 MULTIPLE VITAMIN [facility] 2022-08-08 00:00 MULTIPLE VITAMIN [facility] 2022-08-09 00:00 MULTIPLE VITAMIN [facility] Services [facility] 2022-08-24 00:00 MULTIPLE VITAMIN [facility] 2022-05-28 00:00 ASPIRIN Walk[facility] 2022-05-29 00:00 ASPIRIN [facility] 2022-06-25 00:00 ASPIRIN [facility] 2022-07-10 00:00 ASPIRIN [facility] 2022-07-12 00:00 ASPIRIN [facility] 2022-08-07 00:00 ASPIRIN [facility] 2022-08-08 00:00 ASPIRIN [facility] 2022-08-09 00:00 ASPIRIN [facility] 2022-08-24 00:00 ASPIRIN [facility] 2022-05-28 00:00 terbinafine hcl Walk[facility] 2022-05-29 00:00 terbinafine hcl [facility] 2022-06-25 00:00 terbinafine hcl [facility] 2022-07-10 00:00 terbinafine hcl [facility] 2022-07-12 00:00 terbinafine hcl [facility] 2022-08-07 00:00 terbinafine hcl [facility] 2022-08-08 00:00 terbinafine hcl [facility] 2022-08-09 00:00 terbinafine hcl [facility] 2022-08-24 00:00 terbinafine hcl [facility] 2022-05-28 00:00 COENZYME Q10 Walk-In [facility] Services [facility] 2022-05-29 00:00 COENZYME Q10 Walk-In [facility] Services [facility] 2022-06-25 00:00 COENZYME Q10 Walk[facility] Services [facility] 2022-07-10 00:00 COENZYME Q10 Walk-In [facility] Ancillary Services [facility] 2022-07-12 00:00 COENZYME Q10 Walk[facility]In [facility] Services [facility] 2022-08-07 00:00 COENZYME Q10 Walk[facility]In [facility] Services [facility] 2022-08-08 00:00 COENZYME Q10 Walk[facility] Services [facility] 2022-08-09 00:00 COENZYME Q10 Walk[facility]illary Services [facility] 2022-08-24 00:00 COENZYME Q10 Walk[facility] Services [facility] 2022-05-28 00:00 ASPIRIN Walk[facility]In [facility] Services [facility] 2022-05-29 00:00 ASPIRIN Walk[facility] 2022-06-25 00:00 ASPIRIN Walk[facility] Services [facility] 2022-07-10 00:00 ASPIRIN Walk[facility]In [facility] Services [facility] 2022-07-12 00:00 ASPIRIN Walk[facility] 2022-08-07 00:00 ASPIRIN Walk[facility]In [facility] Services [facility] 2022-08-08 00:00 ASPIRIN Walk[facility]In [facility] 2022-08-09 00:00 ASPIRIN [facility] 2022-08-24 00:00 ASPIRIN [facility] 2022-08-09 00:00 omeprazole Walk[facility]In [facility] 2022-05-28 00:00 MULTIPLE VITAMIN Walk-In [facility] 2022-05-29 00:00 MULTIPLE VITAMIN Walk[facility] 2022-06-25 00:00 MULTIPLE VITAMIN Walk[facility] 2022-07-10 00:00 MULTIPLE VITAMIN Walk[facility] Services [facility] 2022-07-12 00:00 MULTIPLE VITAMIN Walk[facility] 2022-08-07 00:00 MULTIPLE VITAMIN Walk[facility] 2022-08-08 00:00 MULTIPLE VITAMIN Walk[facility] 2022-08-09 00:00 MULTIPLE VITAMIN Walk[facility] Services [facility] 2022-08-24 00:00 MULTIPLE VITAMIN Walk[facility] 2022-05-28 00:00 ASPIRIN Walk-In [facility] Services [facility] 2022-05-29 00:00 ASPIRIN Walk[facility]In [facility] Services [facility] 2022-06-25 00:00 ASPIRIN Walk[facility]In [facility] 2022-07-10 00:00 ASPIRIN Walk-In [facility] 2022-07-12 00:00 ASPIRIN Walk-In [facility] & [facility] Services [facility] 2022-08-07 00:00 ASPIRIN Walk-In [facility] 2022-08-08 00:00 ASPIRIN Walk-In [facility] Services [facility] 2022-08-09 00:00 ASPIRIN Walk[facility]In [facility] 2022-08-24 00:00 ASPIRIN Walk[facility]In [facility] 2022-05-28 00:00 COENZYME Q10 Walk-In Clinic [facility] 2022-05-29 00:00 COENZYME Q10 Walk-In [facility] Services [facility] 2022-05-28 00:00 terbinafine hcl Walk[facility]In [facility] 2022-05-29 00:00 terbinafine hcl Walk[facility]In [facility] 2022-06-25 00:00 terbinafine hcl Walk-In [facility] Services [facility] 2022-07-10 00:00 terbinafine hcl Walk-In [facility] Services [facility] 2022-07-12 00:00 terbinafine hcl Walk[facility] Services [facility] 2022-08-07 00:00 terbinafine hcl Walk-In [facility] 2022-08-08 00:00 terbinafine hcl Walk[facility] 2022-08-09 00:00 terbinafine hcl Walk[facility]In [facility] Services [facility] 2022-08-24 00:00 terbinafine hcl Walk[facility] 2022-05-28 00:00 terbinafine hcl Walk[facility] 2022-05-29 00:00 terbinafine hcl Walk[facility]In [facility] 2022-06-25 00:00 terbinafine hcl Walk[facility] Services [facility] 2022-07-10 00:00 terbinafine hcl Walk[facility] 2022-07-12 00:00 terbinafine hcl Walk[facility]In [facility] 2022-08-07 00:00 terbinafine hcl Walk[facility] Services [facility] 2022-08-08 00:00 terbinafine hcl Walk[facility] Services [facility] 2022-08-09 00:00 terbinafine hcl Walk[facility] 2022-08-24 00:00 terbinafine hcl Walk[facility]In [facility] Services [facility] 2022-05-28 00:00 MULTIPLE VITAMINS-MINERALS [facility] 2022-05-29 00:00 MULTIPLE VITAMINS-MINERALS [facility] 2022-06-25 00:00 MULTIPLE VITAMINS-MINERALS [facility] 2022-07-10 00:00 MULTIPLE VITAMINS-MINERALS [facility] 2022-07-12 00:00 MULTIPLE VITAMINS-MINERALS [facility] 2022-08-07 00:00 MULTIPLE VITAMINS-MINERALS [facility] 2022-08-08 00:00 MULTIPLE VITAMINS-MINERALS [facility] 2022-08-09 00:00 MULTIPLE VITAMINS-MINERALS [facility] Services C cehri 2022-08-24 00:00 MULTIPLE VITAMINS-MINERALS [facility] 2022-08-09 00:00 omeprazole Walk[facility] 2022-05-28 00:00 COENZYME Q10 Walk-In [facility] 2022-05-29 00:00 COENZYME Q10 Walk-In [facility] 2022-06-25 00:00 COENZYME Q10 Walk[facility]In [facility] Services [facility] 2022-07-10 00:00 COENZYME Q10 Walk[facility]In [facility] Services [facility] 2022-07-12 00:00 COENZYME Q10 Walk[facility]In [facility] Services [facility] 2022-08-07 00:00 COENZYME Q10 Walk[facility]In [facility] Services [facility] 2022-08-08 00:00 COENZYME Q10 Walk-In [facility] Services [facility] 2022-08-09 00:00 COENZYME Q10 Walk-In [facility] Services [facility] 2022-08-24 00:00 COENZYME Q10 Walk-In [facility] Services [facility] 2022-08-09 00:00 omeprazole Walk-In [facility] 2022-08-09 00:00 omeprazole Walk[facility] 2022-05-28 00:00 MULTIPLE VITAMINS-MINERALS [facility] 2022-05-29 00:00 MULTIPLE VITAMINS-MINERALS [facility] 2022-06-25 00:00 MULTIPLE VITAMINS-MINERALS [facility] 2022-07-10 00:00 MULTIPLE VITAMINS-MINERALS [facility] 2022-07-12 00:00 MULTIPLE VITAMINS-MINERALS [facility] 2022-08-07 00:00 MULTIPLE VITAMINS-MINERALS [facility] C [facility] 2022-08-08 00:00 MULTIPLE VITAMINS-MINERALS [facility] 2022-08-09 00:00 MULTIPLE VITAMINS-MINERALS [facility] 2022-08-24 00:00 MULTIPLE VITAMINS-MINERALS [facility] 2022-05-28 00:00 ASPIRIN Walk[facility]In [facility] & Ancillary Services [facility] 2022-05-29 00:00 ASPIRIN Walk-In [facility] & Anc[facility] Services C [facility] 2022-06-25 00:00 ASPIRIN Walk-In [facility] & Anc[facility] Services C [facility] 2022-07-10 00:00 ASPIRIN Walk-In [facility] & Anc[facility] Services C [facility] 2022-07-12 00:00 ASPIRIN Walk-In [facility] Services C [facility] 2022-08-07 00:00 ASPIRIN Walk[facility]In [facility] Services C [facility] 2022-08-08 00:00 ASPIRIN Walk-In [facility] & Anc[facility] Services C [facility] 2022-08-09 00:00 ASPIRIN Walk[facility]In [facility] Services C [facility] 2022-08-24 00:00 ASPIRIN Walk[facility]In [facility] Services C [facility] 2022-05-28 00:00 terbinafine hcl Walk[facility]In [facility] 2022-05-29 00:00 terbinafine hcl Walk[facility] 2022-06-25 00:00 terbinafine hcl Walk[facility] 2022-07-10 00:00 terbinafine hcl Walk[facility] 2022-07-12 00:00 terbinafine hcl Walk[facility] 2022-08-07 00:00 terbinafine hcl Walk[facility]In [facility] Services [facility] 2022-08-08 00:00 terbinafine hcl Walk[facility] 2022-08-09 00:00 terbinafine hcl Walk[facility] 2022-08-24 00:00 terbinafine hcl Walk[facility] 2022-05-28 00:00 MULTIPLE VITAMIN Walk[facility] 2022-05-29 00:00 MULTIPLE VITAMIN [facility] 2022-06-25 00:00 MULTIPLE VITAMIN [facility] C [facility] 2022-07-10 00:00 MULTIPLE VITAMIN [facility] C [facility] 2022-07-12 00:00 MULTIPLE VITAMIN [facility] C [facility] 2022-08-07 00:00 MULTIPLE VITAMIN [facility] Services C [facility] 2022-08-08 00:00 MULTIPLE VITAMIN [facility] Services C [facility] 2022-08-09 00:00 MULTIPLE VITAMIN [facility] Services [facility] 2022-08-24 00:00 MULTIPLE VITAMIN [facility] Services C [facility] 2022-05-28 00:00 MULTIPLE VITAMINS-MINERALS [facility] C [facility] 2022-05-29 00:00 MULTIPLE VITAMINS-MINERALS [facility] C [facility] 2022-06-25 00:00 MULTIPLE VITAMINS-MINERALS [facility] C [facility] 2022-07-10 00:00 MULTIPLE VITAMINS-MINERALS [facility] C [facility] 2022-07-12 00:00 MULTIPLE VITAMINS-MINERALS [facility] C [facility] 2022-08-07 00:00 MULTIPLE VITAMINS-MINERALS [facility] C [facility] 2022-08-08 00:00 MULTIPLE VITAMINS-MINERALS [facility] C [facility] 2022-08-09 00:00 MULTIPLE VITAMINS-MINERALS [facility] C [facility] 2022-08-24 00:00 MULTIPLE VITAMINS-MINERALS [facility] 2022-05-28 00:00 COENZYME Q10 Walk-In [facility] & Anc[facility] Services [facility] 2022-05-29 00:00 COENZYME Q10 Walk-In [facility] & Ancillary Services C hceri 2022-06-25 00:00 COENZYME Q10 Walk-In [facility] & Anc[facility] Services C [facility] 2022-07-10 00:00 COENZYME Q10 Walk-In [facility] & Anc[facility] Services C [facility] 2022-07-12 00:00 COENZYME Q10 Walk-In [facility] & Ancillary Services Linda alonzo 2022-08-07 00:00 COENZYME Q10 [facility] & Ancillary Services Linda alonzo 2022-08-08 00:00 COENZYME Q10 [facility] Linda alonzo 2022-08-09 00:00 COENZYME Q10 [facility] Linda alonzo 2022-08-24 00:00 COENZYME Q10 [facility] Linda alonzo Problems date description facility 2022-05-28 00:00 Other malignant neoplasm of Walk-In [facility] Primary Care unspecified site & Ancillary Services [facility] 2022-05-28 00:00 Myocardial infarction [facility] & [facility]illary Services [facility] 2022-05-28 00:00 Other and unspecified hyperlipidemia W alk-In [facility] Primary Care & Ancillary Services [facility] 2022-05-28 00:00 Leukocytopenia, unspecified Walk-In [facility] Primary Care & Ancillary Services [facility] 2022-05-28 00:00 Hypertensive disorder [facility] & Ancillary Services [facility] 2022-05-28 00:00 Impaired fasting glycemia Walk-In [facility] Primary Care & Ancillary Services [facility] 2022-05-28 00:00 Benign essential hypertension Walk[facility] & Ancillary Services [facility] 2022-05-28 00:00 Unspecified essential hypertension Wal k-In [facility] Primary Care & Ancillary Services [facility] 2022-05-28 00:00 Acute myocardial infarction, Walk-In [facility] unspecified site, initial episode of & A ncillary Services [facility] care 2022-05-28 00:00 Coronary atherosclerosis of Walk-In [facility] Primary Care unspecified type of vessel, [place] or & Ancillary Services [facility] graft 2022-05-28 00:00 Coronary arteriosclerosis Walk-In [facility] Primary Care & Ancillary Services [facility] 2022-05-28 00:00 Hyperlipidemia Walk-In Clinic [facility] Care & Ancillary Services [facility] 2022-05-28 00:00 Leukopenia Walk-In Clinic [facility] Care & Ancillary Services [facility] 2022-05-28 00:00 Malignant (primary) neoplasm, Walk-In Clinic Primary Care unspecified & Ancillary Services [facility] 2022-05-28 00:00 Decreased white blood cell count, Walk -In Clinic Primary Care unspecified & Ancillary Services [facility] 2022-05-28 00:00 Hyperlipidemia, unspecified Walk-In Cl in Primary Care & Ancillary Services [facility] 2022-05-28 00:00 Essential (primary) hypertension Walk- In Clinic Primary Care & Ancillary Services [facility] 2022-05-28 00:00 ST elevation (STEMI) myocardial Walk-I n Clinic Primary Care infarction of unspecified site & Ancilla ry Services [facility] 2022-05-28 00:00 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 & Ancillary Services [facility] pectoris 2022-05-28 00:00 Impaired fasting glucose Walk[facility]In [facility] Primary Care & Ancillary Services [facility] 2022-05-28 00:00 Personal history of other diseases Wal k-In [facility] Primary Care of the circulatory system & Ancillary Se rvices [facility] 2022-05-29 00:00 Other malignant neoplasm of Walk-In [facility] Primary Care unspecified site & Ancillary Services [facility] 2022-05-29 00:00 Myocardial infarction [facility]illary Services [facility] 2022-05-29 00:00 Other and unspecified hyperlipidemia W alk-In Clinic Primary Care & Ancillary Services [facility] 2022-05-29 00:00 Leukocytopenia, unspecified Walk-In [facility] Primary Care & Ancillary Services [facility] 2022-05-29 00:00 Hypertensive disorder [facility]illary Services [facility] 2022-05-29 00:00 Impaired fasting glycemia Walk[facility]In Clin Primary Care & Ancillary Services [facility] 2022-05-29 00:00 Benign essential hypertension Walk-In [facility] Primary Care & Ancillary Services [facility] 2022-05-29 00:00 Unspecified essential hypertension [facility] Primary Care & Ancillary Services [facility] 2022-05-29 00:00 Acute myocardial infarction, Walk-In [facility] Primary Care unspecified site, initial episode of & A ncillary Services [place] care 2022-05-29 00:00 Coronary atherosclerosis of Walk-In [facility] Primary Care unspecified type of vessel, [place] or & Ancillary Services [facility] graft 2022-05-29 00:00 Coronary arteriosclerosis Walk-In [facility] Primary Care & Ancillary Services [facility] 2022-05-29 00:00 Hyperlipidemia [facility] [place] Care & Ancillary Services [facility] 2022-05-29 00:00 Leukopenia Walk-In Clinic [facility] Care & Ancillary Services [facility] 2022-05-29 00:00 Malignant (primary) neoplasm, Walk-In Clinic Primary Care unspecified & Ancillary Services [facility] 2022-05-29 00:00 Decreased white blood cell count, Walk -In Clinic Primary Care unspecified & Ancillary Services [facility] 2022-05-29 00:00 Hyperlipidemia, unspecified Walk-In Cl in Primary Care & Ancillary Services [facility] 2022-05-29 00:00 Essential (primary) hypertension Walk- In Clinic Primary Care & Ancillary Services [facility] 2022-05-29 00:00 ST elevation (STEMI) myocardial Walk-I n Clinic Primary Care infarction of unspecified site & Ancilla ry Services [facility] 2022-05-29 00:00 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 & Ancillary Services [facility] pectoris 2022-05-29 00:00 Impaired fasting glucose [facility] Primary Care & Ancillary Services [facility] 2022-05-29 00:00 Personal history of other diseases [facility] Primary Care of the circulatory system & Ancillary Se rvices [place] 2022-06-25 00:00 Other malignant neoplasm of Walk-In in Primary Care unspecified site & Ancillary Services [facility] 2022-06-25 00:00 Myocardial infarction [facility]illary Services [facility] 2022-06-25 00:00 Osteoarthritis of knee Walk-In Clinic Primary Care & Ancillary Services [facility] 2022-06-25 00:00 Other and unspecified hyperlipidemia W alk-In Clinic Primary Care & Ancillary Services [facility] 2022-06-25 00:00 Leukocytopenia, unspecified Walk-In Cl in Primary Care & Ancillary Services [facility] 2022-06-25 00:00 Hypertensive disorder [facility] 2022-06-25 00:00 Impaired fasting glycemia Walk-In Clin [facility] Primary Care & Ancillary Services [facility] 2022-06-25 00:00 Benign essential hypertension Walk-In [facility] Primary Care & Ancillary Services [facility] 2022-06-25 00:00 Unspecified essential hypertension [facility] Primary Care & Ancillary Services [facility] 2022-06-25 00:00 Acute myocardial infarction, Walk[facility]In [facility] Primary Care unspecified site, initial episode of & A ncillary Services [facility] care 2022-06-25 00:00 Coronary atherosclerosis of Walk-In in Primary Care unspecified type of vessel, [place] or & Ancillary Services [facility] graft 2022-06-25 00:00 Coronary arteriosclerosis Walk-In [facility] Primary Care & Ancillary Services [facility] 2022-06-25 00:00 Hyperlipidemia Walk[facility]In [facility] & Ancillary Services [facility] 2022-06-25 00:00 Osteoarthrosis, unspecified whether [facility] Primary Care generalized or localized, involving & An cillary Services [place] lower leg 2022-06-25 00:00 Leukopenia Walk[facility]In [facility] Care & Ancillary Services [facility] 2022-06-25 00:00 Malignant (primary) neoplasm, [facility] Primary Care unspecified & Ancillary Services [place] 2022-06-25 00:00 Decreased white blood cell count, [facility] Primary Care unspecified & Ancillary Services [place] 2022-06-25 00:00 Hyperlipidemia, unspecified [facility] & [facility]illary [facility] [place] 2022-06-25 00:00 Essential (primary) hypertension Walk- In [facility] Primary Care & Ancillary Services [place] 2022-06-25 00:00 ST elevation (STEMI) myocardial Walk-I n 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 & Ancillary Services [place] 2022-06-25 00:00 Unilateral primary osteoarthritis, [facility] Primary [facility] left knee & Ancillary Services [place] 2022-06-25 00:00 Impaired fasting glucose Walk-In [facility] Primary Care & Ancillary Services [place] 2022-06-25 00:00 Personal history of other diseases [facility] Primary Care of the circulatory system & Ancillary Se rvices [place] 2022-07-10 00:00 Other malignant neoplasm of Walk-In [facility] Primary Care unspecified site & Ancillary Services [place] 2022-07-10 00:00 Myocardial infarction [facility] & Ancillary Services [place] 2022-07-10 00:00 Other and unspecified hyperlipidemia W alk-In Clinic Primary Care & Ancillary Services [place] 2022-07-10 00:00 Leukocytopenia, unspecified [facility] Care & Ancillary [facility] [place] 2022-07-10 00:00 Hypertensive disorder [facility] [place] 2022-07-10 00:00 Impaired fasting glycemia Walk-In [facility] Primary Care & Ancillary Services [place] 2022-07-10 00:00 Benign essential hypertension [facility] Primary Care & [facility]illary Services [place] 2022-07-10 00:00 Unspecified essential hypertension Wal k-In [facility] Primary Care & Ancillary Services [place] 2022-07-10 00:00 Acute myocardial infarction, Walk-In [facility] Primary Care unspecified site, initial episode of & A ncillary Services [place] care 2022-07-10 00:00 Coronary atherosclerosis of Walk-In [facility] Primary Care unspecified type of vessel, [place] or & Ancillary Services [place] graft 2022-07-10 00:00 Coronary arteriosclerosis Walk-In [facility] Primary Care & Ancillary Services [place] 2022-07-10 00:00 Hyperlipidemia Walk-In Clinic [facility] Care & Ancillary Services [place] 2022-07-10 00:00 Leukopenia Walk-In Clinic [facility] Care & Ancillary Services [place] 2022-07-10 00:00 Malignant (primary) neoplasm, [facility] Primary Care unspecified & Ancillary Services [place] 2022-07-10 00:00 Decreased white blood cell count, [facility] Primary Care unspecified & Ancillary Services [place] 2022-07-10 00:00 Hyperlipidemia, unspecified [facility] Primary Care & Ancillary Services [place] 2022-07-10 00:00 Essential (primary) hypertension Walk- In [facility] Primary Care & Ancillary Services [place] 2022-07-10 00:00 ST elevation (STEMI) myocardial Walk[facility]I n Clinic Primary Care infarction of unspecified site & Ancilla ry Services [place] 2022-07-10 00:00 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 & Ancillary Services [place] pectoris 2022-07-10 00:00 Impaired fasting glucose Walk-In [facility] Primary Care & Ancillary Services [place] 2022-07-10 00:00 Personal history of other diseases [facility] Primary Care of the circulatory system & Ancillary Se rvices [place] 2022-07-12 00:00 Other malignant neoplasm of [facility] Primary Care unspecified site & Ancillary Services [place] 2022-07-12 00:00 Myocardial infarction [facility] & [facility]illary Services [place] 2022-07-12 00:00 Other and unspecified hyperlipidemia W alk-In [facility] Primary Care & Ancillary Services [place] 2022-07-12 00:00 Leukocytopenia, unspecified Walk-In [facility] Primary Care & Ancillary Services [place] 2022-07-12 00:00 Hypertensive disorder [facility] Care & Ancillary Services [place] 2022-07-12 00:00 Impaired fasting glycemia Walk-In [facility] Primary Care & Ancillary Services [place] 2022-07-12 00:00 Benign essential hypertension Walk-In [facility] Primary Care & Ancillary Services [place] 2022-07-12 00:00 Unspecified essential hypertension Wal k-In [facility] Primary Care & Ancillary Services [place] 2022-07-12 00:00 Acute myocardial infarction, Walk-In [facility] Primary Care unspecified site, initial episode of & A ncillary Services [facility] 2022-07-12 00:00 Coronary atherosclerosis of Walk-In [facility] Primary Care unspecified type of vessel, [place] or & Ancillary Services [place] graft 2022-07-12 00:00 Coronary arteriosclerosis Walk-In [facility] Primary Care & Ancillary Services [place] 2022-07-12 00:00 Hyperlipidemia Walk-In Clinic [facility] Care & Ancillary Services [place] 2022-07-12 00:00 Leukopenia Walk-In Clinic [facility] Care & Ancillary Services [place] 2022-07-12 00:00 Malignant (primary) neoplasm, Walk-In [facility] Primary Care unspecified & Ancillary Services [place] 2022-07-12 00:00 Decreased white blood cell count, Walk -In [facility] Primary Care unspecified & Ancillary Services [place] 2022-07-12 00:00 Hyperlipidemia, unspecified [facility] Primary Care & Ancillary Services [place] 2022-07-12 00:00 Essential (primary) hypertension Walk- In [facility] Primary Care & Ancillary Services [place] 2022-07-12 00:00 ST elevation (STEMI) myocardial [facility] n Clinic Primary Care infarction of unspecified site & Ancilla ry Services [place] 2022-07-12 00:00 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 & Ancillary Services [place] pectoris 2022-07-12 00:00 Impaired fasting glucose [facility] Primary Care & Ancillary Services [place] 2022-07-12 00:00 Personal history of other diseases [facility] Primary Care of the circulatory system & Ancillary Se rvices [place] 2022-08-07 00:00 Other malignant neoplasm of Walk-In in Primary Care unspecified site & Ancillary Services [place] 2022-08-07 00:00 Myocardial infarction [facility] & [facility] [place] 2022-08-07 00:00 Other and unspecified hyperlipidemia W alk-In Clinic Primary Care & Ancillary Services [place] 2022-08-07 00:00 Leukocytopenia, unspecified Walk-In [facility] Primary Care & Ancillary Services [place] 2022-08-07 00:00 Hypertensive disorder [facility] & [facility] [place] 2022-08-07 00:00 Impaired fasting glycemia Walk-In [facility] Primary Care & Ancillary Services [place] 2022-08-07 00:00 Benign essential hypertension [facility] Primary Care & Ancillary Services [place] 2022-08-07 00:00 Unspecified essential hypertension [facility] & [facility]illary Services [place] 2022-08-07 00:00 Acute myocardial infarction, Walk-In [facility] Primary Care unspecified site, initial episode of & A ncillary Services [place] care 2022-08-07 00:00 Coronary atherosclerosis of Walk-In [facility] Primary Care unspecified type of vessel, [place] or & Ancillary Services [place] graft 2022-08-07 00:00 Coronary arteriosclerosis Walk-In [facility] Primary Care & Ancillary Services [place] 2022-08-07 00:00 Hyperlipidemia [facility] & Ancillary Services [place] 2022-08-07 00:00 Leukopenia [facility] Care & Ancillary Services [place] 2022-08-07 00:00 Malignant (primary) neoplasm, [facility] Primary Care unspecified & Ancillary Services [place] 2022-08-07 00:00 Decreased white blood cell count, [facility] Primary Care unspecified & Ancillary Services [place] 2022-08-07 00:00 Hyperlipidemia, unspecified [facility]In Cl in Primary Care & Ancillary Services [place] 2022-08-07 00:00 Essential (primary) hypertension [facility]- In [facility] Primary Care & [facility]illary Services [place] 2022-08-07 00:00 ST elevation (STEMI) myocardial [facility]I n Clinic Primary Care infarction of unspecified site & Ancilla ry Services [place] 2022-08-07 00:00 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 & Ancillary Services [place] pectoris 2022-08-07 00:00 Impaired fasting glucose [facility] Primary Care & Ancillary Services [place] 2022-08-07 00:00 Personal history of other diseases [facility] Primary Care of the circulatory system & Ancillary Se rvices [place] 2022-08-08 00:00 Other malignant neoplasm of [facility] Primary Care unspecified site & Ancillary Services [place] 2022-08-08 00:00 Myocardial infarction [facility] Services [place] 2022-08-08 00:00 Other and unspecified hyperlipidemia W alk-In Clinic Primary Care & Ancillary Services [place] 2022-08-08 00:00 Leukocytopenia, unspecified [facility] Primary Care & Ancillary Services [place] 2022-08-08 00:00 Hypertensive disorder [facility] Services [place] 2022-08-08 00:00 Impaired fasting glycemia Walk-In [facility] Primary Care & Ancillary Services [place] 2022-08-08 00:00 Benign essential hypertension [facility] Primary Care & Ancillary Services [place] 2022-08-08 00:00 Unspecified essential hypertension [facility] & [facility] Services [place] 2022-08-08 00:00 Acute myocardial infarction, Walk-In [facility] Primary Care unspecified site, initial episode of & A ncillary Services [place] care 2022-08-08 00:00 Coronary atherosclerosis of Walk-In [facility] Primary Care unspecified type of vessel, [place] or & Ancillary Services [place] graft 2022-08-08 00:00 Coronary arteriosclerosis Walk-In [facility] Primary Care & Ancillary Services [place] 2022-08-08 00:00 Hyperlipidemia [facility] Care & Ancillary Services [place] 2022-08-08 00:00 Leukopenia Walk[facility]In [facility] Care & Ancillary Services [place] 2022-08-08 00:00 Malignant (primary) neoplasm, [facility] Primary Care unspecified & Ancillary Services [place] 2022-08-08 00:00 Decreased white blood cell count, [facility] Primary Care unspecified & Ancillary Services [place] 2022-08-08 00:00 Hyperlipidemia, unspecified Walk[facility]In Cl in Primary Care & Ancillary Services [place] 2022-08-08 00:00 Essential (primary) hypertension [facility]- In [facility] Primary Care & Ancillary Services [place] 2022-08-08 00:00 ST elevation (STEMI) myocardial Walk[facility]I n Clinic Primary Care infarction of unspecified site & Ancilla ry Services [place] 2022-08-08 00:00 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 & Ancillary Services [place] pectoris 2022-08-08 00:00 Impaired fasting glucose [facility] Primary Care & Ancillary Services [place] 2022-08-08 00:00 Personal history of other diseases [facility] Primary Care of the circulatory system & Ancillary Se rvices [place] 2022-08-09 00:00 Other malignant neoplasm of [facility] Primary Care unspecified site & Ancillary Services [place] 2022-08-09 00:00 Myocardial infarction [facility] & [facility] [place] 2022-08-09 00:00 Other and unspecified hyperlipidemia W alk-In Clinic Primary Care & Ancillary Services [place] 2022-08-09 00:00 Leukocytopenia, unspecified Walk-In Cl in Primary Care & Ancillary Services [place] 2022-08-09 00:00 Hypertensive disorder Walk[facility]In [facility] Care & Ancillary Services [place] 2022-08-09 00:00 Impaired fasting glycemia Walk-In Clin ic Primary Care & Ancillary Services [place] 2022-08-09 00:00 Benign essential hypertension [facility] Primary Care & Ancillary Services [place] 2022-08-09 00:00 Unspecified essential hypertension [facility] Primary Care & [facility]illary Services [place] 2022-08-09 00:00 Acute myocardial infarction, Walk-In [facility] Primary Care unspecified site, initial episode of & A ncillary Services [place] care 2022-08-09 00:00 Coronary atherosclerosis of Walk-In in Primary Care unspecified type of vessel, [place] or & Ancillary Services [place] graft 2022-08-09 00:00 Drug therapy Walk[facility]In [facility] Care & Ancillary Services [place] 2022-08-09 00:00 Coronary arteriosclerosis Walk-In [facility] Primary Care & Ancillary Services [place] 2022-08-09 00:00 Hyperlipidemia Walk[facility]In [facility] Care & Ancillary Services [place] 2022-08-09 00:00 Leukopenia Walk[facility]In [facility] Care & Ancillary Services [place] 2022-08-09 00:00 Malignant (primary) neoplasm, [facility] Primary Care unspecified & Ancillary Services [place] 2022-08-09 00:00 Decreased white blood cell count, [facility] Primary Care unspecified & Ancillary Services [place] 2022-08-09 00:00 Hyperlipidemia, unspecified Walk-In Cl in Primary Care & Ancillary Services [place] 2022-08-09 00:00 Essential (primary) hypertension [facility]- In [facility] Primary Care & Ancillary Services [place] 2022-08-09 00:00 ST elevation (STEMI) myocardial Walk[facility]I n Clinic Primary Care infarction of unspecified site & Ancilla ry Services [place] 2022-08-09 00:00 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 & Ancillary Services [place] pectoris 2022-08-09 00:00 Impaired fasting [facility] [place] 2022-08-09 00:00 Encounter for therapeutic drug [facility]In Clinic Primary Care monitoring & Ancillary Services [place] 2022-08-09 00:00 Other senior living (current) drug Walk[facility]In Clinic Primary Care therapy & Ancillary Services [place] 2022-08-09 00:00 Personal history of other diseases [facility] Primary Care of the circulatory system & Ancillary Se rvices [place] 2022-08-24 00:00 Other malignant neoplasm of Walk-In in Primary Care unspecified site & Ancillary Services [place] 2022-08-24 00:00 [facility] [place] [facility]-08-24 00:00 Myocardial infarction Walk[facility]In [facility] Care & Ancillary Services [place] 2022-08-24 00:00 Other and unspecified hyperlipidemia W alk-In Clinic Primary Care & Ancillary Services [place] 2022-08-24 00:00 Leukocytopenia, unspecified [facility] Primary Care & Ancillary Services [place] 2022-08-24 00:00 Hypertensive disorder [facility] & [facility]illary Services [place] 2022-08-24 00:00 Impaired fasting glycemia Walk-In [facility] Primary Care & Ancillary Services [place] 2022-08-24 00:00 Benign essential hypertension [facility] Primary Care & Ancillary Services [place] 2022-08-24 00:00 Unspecified essential hypertension Wal k-In [facility] Primary Care & Ancillary Services [place] 2022-08-24 00:00 Acute myocardial infarction, Walk-In [facility] Primary Care unspecified site, initial episode of & A ncillary Services [place] care 2022-08-24 00:00 Coronary atherosclerosis of Walk-In [facility] Primary Care unspecified type of vessel, [place] or & Ancillary Services [place] graft 2022-08-24 00:00 Closed injury of head [facility]illary Services [place] 2022-08-24 00:00 Coronary arteriosclerosis Walk-In [facility] Primary Care & Ancillary Services [place] 2022-08-24 00:00 Hyperlipidemia Walk[facility]In [facility] Care & Ancillary Services [place] 2022-08-24 00:00 Olecranon bursitis Walk-In Clinic [facility] Care & Ancillary Services [place] 2022-08-24 00:00 Leukopenia Walk-In Clinic [facility] Care & Ancillary Services [place] 2022-08-24 00:00 Abrasion or friction burn of hip, Walk- In Clinic Primary Care thigh, leg, and ankle, without & Ancilla ry Services [place] mention of infection 2022-08-24 00:00 Malignant (primary) neoplasm, [facility]In [facility] Primary Care unspecified & Ancillary Services [place] 2022-08-24 00:00 Decreased white blood cell count, Walk -In [facility] Primary Care unspecified & Ancillary Services [place] 2022-08-24 00:00 Hyperlipidemia, unspecified [facility] Primary Care & Ancillary Services [place] 2022-08-24 00:00 Essential (primary) hypertension Walk- In [facility] Primary Care & Ancillary Services [place] 2022-08-24 00:00 ST elevation (STEMI) myocardial Walk-I n Clinic Primary Care infarction of unspecified site & Ancilla ry Services [place] 2022-08-24 00:00 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 & Ancillary Services [place] pectoris 2022-08-24 00:00 Olecranon bursitis, left elbow Walk[facility]In [facility] Primary Care & Ancillary Services [place] 2022-08-24 00:00 Impaired fasting glucose [facility] Primary Care & Ancillary Services [place] 2022-08-24 00:00 Unspecified injury of head, initial Wa lk-In Clinic Primary Care encounter & Ancillary Services [place] 2022-08-24 00:00 Abrasion, unspecified knee, initial Wa [facility]k-In Clinic Primary Care encounter & Ancillary Services [place] 2022-08-24 00:00 Personal history of other diseases [facility] Primary Care of the circulatory system & Ancillary Se rvices [place] Procedures date description facility 2022-08-07 00:00 Major Joint Injection [facility] & [facility] [place] 2022-08-24 00:00 Visit Code Hold [facility] & [facility] Services [place] 2022-08-24 00:00 First Vx - Ix admin for Medicare Walk- In [facility] Primary Care & patients [facility]illary Services [place] 2022-08-24 00:00 Boostrix Intramuscular Suspension Walk -In Clinic Primary Care & 5-2.5-18.5 Ancillary Services [place] Results/Labs test date author facility value unit interpret ation Result panel 1 (unknown) (no date) (unknown) Walk-In (no value) (units (unk nown) Clinic Primary unknown) Care & Ancillary Services [place] Result panel 2 (unknown) (no date) (unknown) Walk-In (no value) (units (unk nown) Clinic Primary unknown) Care & Ancillary Services [place] Result panel 3 (unknown) (no date) (unknown) Walk-In (no value) (units (unk nown) Clinic Primary unknown) Care & Ancillary Services [place] Result panel 4 (unknown) (no date) (unknown) Walk-In (no value) (units (unk nown) Clinic Primary unknown) Care & Ancillary Services [place] Result panel 5 (unknown) (no date) (unknown) Walk-In (no value) (units (unk nown) Clinic Primary unknown) Care & Ancillary Services [place] Result panel 6 (unknown) (no date) (unknown) Walk-In (no value) (units (unk nown) Clinic Primary unknown) Care & Ancillary Services [place] Result panel 7 (unknown) (no date) (unknown) Walk-In (no value) (units (unk nown) Clinic Primary unknown) Care & Ancillary Services [place] Result panel 8 (unknown) (no date) (unknown) Walk-In (no value) (units (unk nown) Clinic Primary unknown) Care & Ancillary Services [place] Result panel 9 (unknown) (no date) (unknown) Walk-In (no value) (units (unk nown) Clinic Primary unknown) Care & Ancillary Services [place] Result panel 10 (unknown) (no date) (unknown) Walk-In (no value) (units (unk nown) Clinic Primary unknown) Care & Ancillary Services [place] Result panel 11 (unknown) (no date) (unknown) Walk-In (no value) (units (unk nown) Clinic Primary unknown) Care & Ancillary Services [place] Result panel 12 (unknown) (no date) (unknown) Walk-In (no value) (units (unk nown) Clinic Primary unknown) Care & Ancillary Services [place] Result panel 13 (unknown) (no date) (unknown) Walk-In (no value) (units (unk nown) Clinic Primary unknown) Care & Ancillary Services [place] Result panel 14 (unknown) (no date) (unknown) Walk-In (no value) (units (unk nown) Clinic Primary unknown) Care & Ancillary Services [place] Result panel 15 (unknown) (no date) (unknown) Walk-In (no value) (units (unk nown) Clinic Primary unknown) Care & Ancillary Services [place] Result panel 16 (unknown) (no date) (unknown) Walk-In (no value) (units (unk nown) Clinic Primary unknown) Care & Ancillary Services [place] Result panel 17 (unknown) (no date) (unknown) Walk-In (no value) (units (unk nown) Clinic Primary unknown) Care & Ancillary Services [place] Result panel 18 (unknown) (no date) (unknown) Walk-In (no value) (units (unk nown) Clinic Primary unknown) Care & Ancillary Services [place] Result panel 19 (unknown) (no date) (unknown) Walk-In (no value) (units (unk nown) Clinic Primary unknown) Care & Ancillary Services [place] Result panel 20 (unknown) (no date) (unknown) Walk-In (no value) (units (unk nown) Clinic Primary unknown) Care & Ancillary Services [place] Result panel 21 (unknown) (no date) (unknown) Walk-In (no value) (units (unk nown) Clinic Primary unknown) Care & Ancillary Services [place] Result panel 22 (unknown) (no date) (unknown) Walk-In (no value) (units (unk nown) Clinic Primary unknown) Care & Ancillary Services [place] Result panel 23 (unknown) (no date) (unknown) Walk-In (no value) (units (unk nown) Clinic Primary unknown) Care & Ancillary Services [place] Result panel 24 (unknown) (no date) (unknown) Walk-In (no value) (units (unk nown) Clinic Primary unknown) Care & Ancillary Services [place] Result panel 25 (unknown) (no date) (unknown) Walk-In (no value) (units (unk nown) Clinic Primary unknown) Care & Ancillary Services [place] Result panel 26 (unknown) (no date) (unknown) Walk-In (no value) (units (unk nown) Clinic Primary unknown) Care & Ancillary Services [place] Result panel 27 (unknown) (no date) (unknown) Walk-In (no value) (units (unk nown) Clinic Primary unknown) Care & Ancillary Services [place] Result panel 28 (unknown) (no date) (unknown) Walk-In (no value) (units (unk nown) Clinic Primary unknown) Care & Ancillary Services [place] Result panel 29 (unknown) (no date) (unknown) Walk-In (no value) (units (unk nown) Clinic Primary unknown) Care & Ancillary Services [place] Result panel 30 (unknown) (no date) (unknown) Walk-In (no value) (units (unk nown) Clinic Primary unknown) Care & Ancillary Services [place] Result panel 31 (unknown) (no date) (unknown) Walk-In (no value) (units (unk nown) Clinic Primary unknown) Care & Ancillary Services [place] Result panel 32 (unknown) (no date) (unknown) Walk-In (no value) (units (unk nown) Clinic Primary unknown) Care & Ancillary Services [place] Result panel 33 (unknown) (no date) (unknown) Walk-In (no value) (units (unk nown) Clinic Primary unknown) Care & Ancillary Services [place] Result panel 34 (unknown) (no date) (unknown) Walk-In (no value) (units (unk nown) Clinic Primary unknown) Care & Ancillary Services [place] Result panel 35 (unknown) (no date) (unknown) Walk-In (no value) (units (unk nown) Clinic Primary unknown) Care & Ancillary Services [place] Result panel 36 (unknown) (no date) (unknown) Walk-In (no value) (units (unk nown) Clinic Primary unknown) Care & Ancillary Services [place] Result panel 37 (unknown) (no date) (unknown) Walk-In (no value) (units (unk nown) Clinic Primary unknown) Care & Ancillary Services [place] Result panel 38 (unknown) (no date) (unknown) Walk-In (no value) (units (unk nown) Clinic Primary unknown) Care & Ancillary Services [place] Result panel 39 (unknown) (no date) (unknown) Walk-In (no value) (units (unk nown) Clinic Primary unknown) Care & Ancillary Services [place] Result panel 40 (unknown) (no date) (unknown) Walk-In (no value) (units [facility] Result panel 41 (unknown) (no date) (unknown) Walk-In (no value) [facility] Result panel 42 (unknown) (no date) (unknown) Walk-In (no value) (units [facility] Result panel 43 (unknown) (no date) (unknown) Walk-In (no value) (units [facility] Result panel 44 (unknown) (no date) (unknown) Walk-In (no value) (units [facility] Result panel 45 (unknown) (no date) (unknown) [facility]-In (no value) (units [facility] Result panel 46 (unknown) (no date) (unknown) Walk-In (no value) (units [facility] Result panel 47 (unknown) (no date) (unknown) Walk-In (no value) (units [facility] Result panel 48 (unknown) (no date) (unknown) Walk-In (no value) (units [facility] Result panel 49 (unknown) (no date) (unknown) Walk-In (no value) (units [facility] Result panel 50 (unknown) (no date) (unknown) Walk-In (no value) (units [facility] Result panel 51 (unknown) (no date) (unknown) Walk-In (no value) (units [facility] Result panel 52 (unknown) (no date) (unknown) Walk-In (no value) (units [facility] Result panel 53 (unknown) (no date) (unknown) Walk-In (no value) (units [facility] Result panel 54 (unknown) (no date) (unknown) Walk-In (no value) (units [facility] Result panel 55 (unknown) (no date) (unknown) Walk-In (no value) (units [facility] Result panel 56 (unknown) (no date) (unknown) Walk-In (no value) (units [facility] Result panel 57 (unknown) (no date) (unknown) Walk-In (no value) (units [facility] Result panel 58 (unknown) (no date) (unknown) Walk-In (no value) [facility]units [facility] Result panel 59 (unknown) (no date) (unknown) Walk-In (no value) (units [facility] Result panel 60 (unknown) (no date) (unknown) Walk-In (no value) (units [facility] Result panel 61 (unknown) (no date) (unknown) Walk-In (no value) (units [facility] Result panel 62 (unknown) (no date) (unknown) Walk-In (no value) (units [facility] Result panel 63 (unknown) (no date) (unknown) Walk-In (no value) (units [facility] Result panel 64 (unknown) (no date) (unknown) Walk-In (no value) (units [facility] Result panel 65 (unknown) (no date) (unknown) Walk-In (no value) [facility]units [facility] Result panel 66 (unknown) (no date) (unknown) Walk-In (no value) (units [facility] Result panel 67 (unknown) (no date) (unknown) Walk-In (no value) (units ([facility]own[facility] Result panel 68 (unknown) (no date) (unknown) Walk-In (no value) (units [facility] Result panel 69 (unknown) (no date) (unknown) Walk-In (no value) (units [facility] Result panel 70 (unknown) (no date) (unknown) Walk-In (no value) (units [facility] Result panel 71 (unknown) (no date) (unknown) Walk-In (no value) (units [facility] Result panel 72 (unknown) (no date) (unknown) Walk-In (no value) (units [facility] Result panel 73 (unknown) (no date) (unknown) Walk-In (no value) (units [facility] Result panel 74 (unknown) (no date) (unknown) Walk-In (no value) (units [facility] Result panel 75 (unknown) (no date) (unknown) Walk-In (no value) (units [facility] Result panel 76 (unknown) (no date) (unknown) Walk-In (no value) (units [facility] Result panel 77 (unknown) (no date) (unknown) Walk-In (no value) (units [facility] Result panel 78 (unknown) (no date) (unknown) Walk-In (no value) (units [facility] Result panel 79 (unknown) (no date) (unknown) Walk-In (no value) (units [facility] Result panel 80 (unknown) (no date) (unknown) Walk-In (no value) [facility]units [facility] Result panel 81 (unknown) (no date) (unknown) Walk-In (no value) [facility]units [facility] Result panel 82 (unknown) (no date) (unknown) Walk-In (no value) (units [facility] Result panel 83 (unknown) (no date) (unknown) Walk-In (no value) (units [facility] Result panel 84 (unknown) (no date) (unknown) Walk-In (no value) [facility]units [facility] Result panel 85 (unknown) (no date) (unknown) Walk-In (no value) (units [facility] Result panel 86 (unknown) (no date) (unknown) Walk-In (no value) (units [facility] Result panel 87 (unknown) (no date) (unknown) Walk-In (no value) (units [facility] Result panel 88 (unknown) (no date) (unknown) Walk-In (no value) (units [facility] Result panel 89 (unknown) (no date) (unknown) Walk-In (no value) [facility]units [facility] Result panel 90 (unknown) (no date) (unknown) Walk-In (no value) (units [facility] Result panel 91 (unknown) (no date) (unknown) Walk-In (no value) (units [facility] Result panel 92 (unknown) (no date) (unknown) Walk-In (no value) (units [facility] Result panel 93 (unknown) (no date) (unknown) Walk-In (no value) (units [facility] Result panel 94 (unknown) (no date) (unknown) Walk-In (no value) (units [facility] Result panel 95 (unknown) (no date) (unknown) Walk-In (no value) (units [facility] Result panel 96 (unknown) (no date) (unknown) Walk-In (no value) (units [facility] Result panel 97 (unknown) (no date) (unknown) Walk-In (no value) (units [facility] Result panel 98 (unknown) (no date) (unknown) Walk-In (no value) [facility]units [facility] Result panel 99 (unknown) (no date) (unknown) Walk-In (no value) (units [facility] Result panel 100 (unknown) (no date) (unknown) Walk-In (no value) (units [facility] Result panel 101 (unknown) (no date) (unknown) Walk-In (no value) (units [facility] Result panel 102 (unknown) (no date) (unknown) Walk-In (no value) (units [facility] Result panel 103 (unknown) (no date) (unknown) Walk-In (no value) (units [facility] Result panel 104 (unknown) (no date) (unknown) Walk-In (no value) (units [facility] Result panel 105 (unknown) (no date) (unknown) Walk-In (no value) (units [facility] Result panel 106 (unknown) (no date) (unknown) Walk-In (no value) (units [facility] Result panel 107 (unknown) (no date) (unknown) Walk-In (no value) (units [facility] Result panel 108 (unknown) (no date) (unknown) Walk-In (no value) (units [facility] Result panel 109 (unknown) (no date) (unknown) Walk-In (no value) (units [facility] Result panel 110 (unknown) (no date) (unknown) Walk-In (no value) (units [facility] Result panel 111 (unknown) (no date) (unknown) Walk-In (no value) (units ([facility] Result panel 112 (unknown) (no date) (unknown) Walk-In (no value) (units ([facility] Result panel 113 (unknown) (no date) (unknown) Walk-In (no value) (units [facility] Result panel 114 (unknown) (no date) (unknown) Walk-In (no value) (units ([facility] Result panel 115 (unknown) (no date) (unknown) Walk-In (no value) (units ([facility] Result panel 116 (unknown) (no date) (unknown) Walk-In (no value) (units ([facility] Result panel 117 (unknown) (no date) (unknown) Walk-In (no value) (units ([facility] Result panel 118 (unknown) (no date) (unknown) Walk-In (no value) (units ([facility] Result panel 119 (unknown) (no date) (unknown) Walk-In (no value) (units ([facility] Result panel 120 (unknown) (no date) (unknown) Walk-In (no value) (units ([facility] Social History No information. Vital Signs date measurement value units 2022-08-24 00:00 BMI 28.83 kg/m2 2022-08-24 00:00 BP_diastolic 74 mmHg 2022-08-24 00:00 BP_systolic 138 mmHg 2022-08-24 00:00 heart_rate 51 /min 2022-08-24 00:00 height_metric 167.64 cm 2022-08-24 00:00 height_standard 66 in 2022-08-24 00:00 respiration_rate 14 /min 2022-08-24 00:00 temperature_metric 36.33 C 2022-08-24 00:00 temperature_standard 97.4 F 2022-08-24 00:00 weight_metric 80.74 kg 2022-08-24 00:00 weight_standard 178 lb
--- NOTE | 2022-08-24 14:30 | CT Report ---
PROCEDURE: HEAD WO INDICATIONS: fall off roof, pain TECHNIQUE: Noncontrast 4.5 mm thick angled axial sections acquired from the foramen magnum to the vertex. For r adiation dose reduction, the following was used: automated exposure control, adjustment of mA and/or kV according to patient size. COMPARISON: None. FINDINGS: Image quality: Excellent. CSF spaces: Basal cisterns are patent. No extra-axial fluid collections. Ventricles are normal in size and shape. Brain: No midline shift. No intracranial masses or hemorrhage. Lee-white matter interface is norm al. Subcortical and periventricular hypodensities are consistent with microvascular ischemic disease and age-related cerebral volume loss. Skull and face: Calvarium and visualized facial bones are intact, without suspicious lesions. Vascu larity has atherosclerotic calcifications. Sinuses: Visualized sinuses and mastoids are clear. IMPRESSION: 1. No acute intracranial abnormality. 2. Microvascular ischemic disease and age-related cerebral volume loss. Reviewed by: Carlos Delacruz on 08/24/2022 2:29 PM PST Approved by: Carlos Delacruz on 08/24/2022 2:29 PM PST Station ID: [id number]
--- NOTE | 2022-08-24 14:32 | CT Report ---
PROCEDURE: CERVICAL SPINE WO INDICATIONS: fall off roof, pain TECHNIQUE: Noncontrast 3 mm thick sections acquired from the skull base to the T4 level. Sagittal and coronal r eformats were then constructed. For radiation dose reduction, the following was used: automated exp osure control, adjustment of mA and/or kV according to patient size. COMPARISON: None. FINDINGS: Image quality: Excellent. Bones: No fractures or dislocations. Visualized superior ribs are intact. Diffuse degenerative kirill nges. Soft tissues: Prevertebral soft tissues are normal in thickness. No paravertebral hematomas. No ap ical pneumothoraces. IMPRESSION: No acute traumatic abnormality of the cervical spine. Reviewed by: Carlos Delacruz on 08/24/2022 2:31 PM PST Approved by: Carlos Delacruz on 08/24/2022 2:31 PM PST Station ID: [id number]
--- NOTE | 2022-08-24 14:37 | CT Report ---
PROCEDURE: MAXILLOFACIAL WO INDICATIONS: fall off roof, pain TECHNIQUE: Noncontrast 1.5 mm thick axial images acquired from the mandible through the frontal sinuses, with co obey and sagittal reformatting. For radiation dose reduction, the following was used: automated ex posure control, adjustment of mA and/or kV according to patient size. COMPARISON: None. FINDINGS: Image quality: Excellent. Bones and teeth: Orbital alvarez are intact. Sinus alvarez show no fracture or deformity. Nasal bones and septum are intact. Visualized portions of the mandible demonstrate no fractures or subluxation. Zygomatic arches are intact. Pterygoid plates are intact. Visualized portions of the skull base an d auditory canals are intact. Sinuses: Paranasal sinuses are aerated, without fluid levels, mucosal thickening, or mucoceles. Mas toid air cells are aerated. Soft tissues: No edema, masses, or fluid collections. No enlarged lymph nodes. No soft tissue lace rations or debris. Vascular: Visualized vascular structures appear normal in the absence of contrast. Bony vascular fo ramina and canals are intact. IMPRESSION: No fracture of the maxillofacial bones. Reviewed by: Carlos Delacruz on 08/24/2022 2:36 PM PST Approved by: Carlos Delacruz on 08/24/2022 2:36 PM PST Station ID: [id number]
--- NOTE | 2022-08-24 14:39 | CT Report ---
PROCEDURE: THORACIC SPINE WO INDICATIONS: fall off roof, pain TECHNIQUE: Noncontrast 3 mm thick sections acquired through the region of interest in the thoracic spine. Sagit estuardo and coronal reformats were then constructed. For radiation dose reduction, the following was used : automated exposure control, adjustment of mA and/or kV according to patient size. COMPARISON: None. FINDINGS: Image quality: Excellent. Bones: There is normal overall bony alignment. No acute vertebral body compression fractures. No s uspicious sclerotic or lytic bony lesions. Central spinal canal is of normal overall caliber. Diffu se mild degenerative changes. Soft tissues: No paravertebral masses or hematomas. Visualized posteromedial lungs appear clear. IMPRESSION: No acute traumatic abnormality of the thoracic spine. Reviewed by: Carlos Delacruz on 08/24/2022 2:37 PM PST Approved by: Carlos Delacruz on 08/24/2022 2:37 PM [facility] Station ID: [id number]
--- NOTE | 2022-08-24 14:41 | CT Report ---
PROCEDURE: LUMBAR SPINE WO INDICATIONS: fall off roof, pain TECHNIQUE: Noncontrast 3 mm thick sections acquired from the T12 level to the sacrum. Sagittal and coronal refo rmats were constructed. For radiation dose reduction, the following was used: automated exposure co ntrol, adjustment of mA and/or kV according to patient size. COMPARISON: None. FINDINGS: Image quality: Excellent. Bones: There is normal bony alignment. No acute vertebral body compression fractures. No suspiciou s lytic or blastic bony lesions. Central spinal caliber is of normal overall caliber. No pars defec ts. Discs: Diffuse disc bulges at L3-4, L4-5. Postoperative changes at L5-S1. Soft tissues: No retroperitoneal masses or hematomas. Visualized aorta is normal in caliber. IMPRESSION: 1. No acute traumatic abnormality. 2. Disc disease as above. 3. Postoperative changes at L5-S1. Reviewed by: Carlos Delacruz on 08/24/2022 2:39 PM PST Approved by: Carlos Delacruz on 08/24/2022 2:39 PM PST Station ID: [id number]
[2022-08-24] MEDS ORDERED: oxyCODONE 5 MG TABLET PO STA (15:08)
--- NOTE | 2022-08-24 15:32 | XRAY Report ---
PROCEDURE: Elbow 3 View LT INDICATIONS: fall, elbow pain TECHNIQUE: 3 views of the elbow were acquired. COMPARISON: None FINDINGS: Bones: Comminuted displaced olecranon fracture. No suspicious bony lesions. Soft tissues: Positive elbow joint effusion. No suspicious soft tissue calcifications. IMPRESSION: Comminuted, displaced olecranon fracture. Reviewed by: Luis Cobb MD on 08/24/2022 3:31 PM [facility] Approved by: Luis Cobb MD on 08/24/2022 3:31 PM [facility] Station ID: [id number]
--- NOTE | 2022-08-24 15:57 | ED Physician Documentation ---
History of Present Illness - Stated complaint Stated Complaint: GLF LT ARM INJ - Chief complaint Chief Complaint: Trauma Hd/Nk - History obtained from History obtained from: Patient, Family - History of Present Illness Timing: Today Pain level max: 5 Pain level now: 5 - Additonal information Additional information: 77-year-old male was cleaning his gutters on the second story of his home when he fell off of the roof and landed on the ground. Patient is complaining of left elbow pain. He also has abrasions to the face and bilateral knees. He went to the walk-in clinic and was sent here. He is not on any blood thinners. Has mild neck and back pain. No focal numbness or tingling. No LOC. no vomiting. no abd pain, no chest pain. Review of Systems Constitutional: denies: Fever, Chills Respiratory: denies: Cough GI: denies: Vomiting, Diarrhea Skin: denies: Rash Neurologic: denies: Generalized weakness, Focal weakness, Numbness, Confused, Altered mental status PD PAST MEDICAL HISTORY - Past Medical History Cardiovascular: Hypertension, High cholesterol, Coronary artery disease, [place] Respiratory: None Endocrine/Autoimmune: None GI: GERD : Benign prostate hypertrophy HEENT: None Psych: Claustrophobia Musculoskeletal: Osteoarthritis Derm: None - Past Surgical History Past Surgical History: Yes General: Appendectomy, Bowel surgery Cardiovascular: Coronary stent Neuro: Other - Present Medications Home Medications: Ambulatory Orders Medication Instructions Recorded Confirmed Metoprolol Tartrate 50 mg PO DAILY 03/18/13 08/12/20 lisinopriL [Lisinopril] 10 mg PO DAILY 03/18/13 08/12/20 Omeprazole [PriLOSEC] 20 mg PO DAILY 06/08/13 08/12/20 Multivitamin W/Minerals [Theragran 1 each PO DAILY 07/31/13 08/12/20 M] Ubidecarenone [Coq-10] 150 mg PO DAILY 07/31/13 08/12/20 Bloodbuilder 1 tab PO Q3D 12/14/13 01/30/16 Tadalafil [Cialis] 5 mg PO DAILY PRN 12/14/13 01/30/16 amLODIPine [Norvasc] 5 mg PO DAILY 12/14/13 08/12/20 Atorvastatin [Lipitor] 10 mg ORAL DAILY 08/13/15 08/12/20 Oxycodone HCl/Acetaminophen 1 - 2 each PO Q6H PRN #14 tablet 08/24/22 [Percocet 5-325 mg Tablet] MDD 6 tabs - Allergies Allergies/Adverse Reactions: Allergies Allergy/AdvReac Type Severity Reaction Status Date / Time ciprofloxacin Allergy Hives Verified 08/24/22 13:29 - Social History Does the pt smoke?: No Smoking Status: Never smoker Does the pt drink ETOH?: Yes Does the pt have substance abuse?: No - Immunizations Immunizations are current?: Yes - POLST Patient has POLST: No PD ED PE NORMAL - Vitals Vital signs reviewed: Yes - General General: Alert and oriented X 3, No acute distress - HEENT HEENT: PERRL, EOMI, Moist mucous membranes, Pharynx benign, Dentition benign, Other (abrasions to the forehead, small hematomas, periorbital ecchymosis L eye, normal vision. no hyphema.) - Neck Neck: Supple, no meningeal sign, Other (Mild upper C-spine tenderness to palpation. Placed in a cervical collar) - Cardiac Cardiac: RRR, Strong equal pulses - Respiratory Respiratory: No respiratory distress, Clear bilaterally - Abdomen Abdomen: Soft, Non tender, Non distended - Back Back: Other (No midline tenderness to palpation or percussion. No step-off or deformity. Mild paraspinal tenderness diffusely over the T and L-spine) - Derm Derm: Warm and dry, No rash - Extremities Extremities: Other (Abrasions to the bilateral knees. There is swelling and deformity to the left elbow. Limited range of motion of the left elbow. Otherwise normal range of motion of all major joints, shoulders, wrists, hands, hips, knees, ankles. NVI) - Neuro Neuro: Alert and oriented X 3, national stormwater leader 2-12 intact, No motor deficit, No sensory deficit, Normal speech Eye Opening: Spontaneous Motor: Obeys Commands Verbal: Oriented GCS Score: 15 - Psych Psych: Normal mood, Normal affect Results - Vitals Vitals: Vital Signs - 24 hr 08/24/22 08/24/22 08/24/22 13:25 14:54 16:41 Temperature 36.8 C Heart Rate 51 L 49 L 59 L Respiratory 20 18 18 Rate Blood Pressure 174/133 H 131/73 H 125/77 O2 Saturation 96 100 95 Oxygen O2 Source Room air - Rads (name of study) head CT Radiology: Final report received, See rad report maxillofacial CT Radiology: Final report received, See rad report cervical spine CT Radiology: Final report received, See rad report thoracic spine CT Radiology: Final report received, See rad report lumbar spine CT Radiology: Final report received, See rad report L elbow xray Radiology: Final report received, See rad report Procedures - Splint (location) - Minor Left elbow Splint applied by: Physician, Tech Type of splint: Fiberglass, Long arm, Posterior Other: Patient tolerated well, No complications, Neurovascular intact, Sling provided PD Medical Decision Making - ED course Complexity details: reviewed results, re-evaluated patient, considered differential, d/w patient, d/w family ED course: 77-year-old male presents to the emergency department after an approximately 22 foot fall off of a roof. No acute findings on head CT, cervical spine CT, maxillofacial CT, thoracic spine CT, lumbar spine CT. Abdomen remains soft, nontender nondistended. Chest is nontender, lungs clear to auscultation bilaterally. Ambulating without difficulty. Wounds were cleansed and bandaged. Tdap was given at the urgent care. Left elbow x-ray shows an olecranon fracture, comminuted. Placed in a long-arm posterior splint. Neurovascular intact. He will follow-up with orthopedics for further care. Patient counseled regarding signs and symptoms for which I believe and urgent re-evaluation would be necessary. Patient with good understanding of and agreement to plan and is comfortable going home at this time This document was made in part using voice recognition software. While efforts are made to proofread this document, sound alike and grammatical errors may occur. Departure - Departure Disposition: 01 Home, Self Care Clinical Impression: Olecranon fracture Qualifiers: Encounter type: initial encounter Fracture type: closed Laterality: left Qualified Code(s): S52.022A - Displaced fracture of olecranon process without intraarticular extension of left ulna, initial encounter for closed fracture Condition: Good Instructions: ED Fx Upper Ext Follow-Up: Traci Salazar ARNP [Primary Care Provider] - [facility] [Provider Group] - Within 1 week Prescriptions: Oxycodone HCl/Acetaminophen [Percocet 5-325 mg Tablet] 1 - 2 each PO Q6H PRN #14 tablet MDD 6 tabs PRN Reason: pain Comments: Please follow-up with orthopedics for further care. Your head CT, maxillofacial CT, cervical spine, thoracic spine and lumbar spine CTs are all normal. Your left elbow x-ray shows a comminuted, displaced olecranon fracture. You are placed in a splint for this. You were also given a sling. Please follow-up with orthopedics for further care of this. Please call tomorrow to make an appointment within the next week. Your prescriptions were sent to [facility] in [place]. I am prescribing a short course of narcotic pain medication for you. These are potentially dangerous and addictive medications that should be used carefully. These medications may constipate you. Take an [id number]-nzr-[id number] stool softener (docusate) twice daily with plenty of water while taking these medications. If you go 24 hours without a bowel movement, take [id number] miralax, per package instructions. Do not drink or drive while taking these medications. If you received narcotic or sedating medications while in the emergency department, do not drive for 24 hours. Store this medication in a safe, secure place and out of reach of children. It is a violation of federal law to give or sell this medication to another person or to use in a manner other than prescribed. The ED will not refill narcotic prescriptions, including prescriptions lost or stolen. To dispose of unwanted medications: 1. [facility] at [address] in [place] has a medication drop box. They accept prescription medications (in pill form) Saturday through Saturday 9:00 a.m. to 5:00 p.m. 2. The [facility] accepts prescription medications (in pill form only) for disposal year round. Call for more information. 3. Contact the [facility] for the next [facility] sponsored prescription drug collection event. , [phone], or [phone]; Discharge Date/Time: 08/24/22 16:41
[2022-08-24 16:42] VITALS: BP 125/77
== END 2022-08-24 16:41 | disposition home or self-care (01) ==
LOC: ED 13:15
DX: S52.022A Displaced fracture of olecranon process without intraarticular extension of left ulna, initial encounter for closed fracture (principal); W11.XXXA Fall on and from ladder, initial encounter; Y93.H9 Activity, other involving exterior property and land maintenance, building and construction; Y92.007 Garden or yard of unspecified non-institutional (private) residence as the place of occurrence of the external cause
CPT/HCPCS: 24600; 36415; 70450; 70486; 72125; 72128; 72131; 73080; 99284; A9270

== ENCOUNTER 2022-08-28 13:13 | Outpatient (CLI) | payer MEDICARE, BC ==
--- NOTE | 2022-08-28 15:57 | XRAY Report ---
PROCEDURE: Elbow 3 View LT INDICATIONS: ELBOW FRACTURE TECHNIQUE: 5 views of the elbow were acquired. COMPARISON: Left elbow radiographs 08/24/2022. FINDINGS: Bones: Comminuted olecranon fracture is similar. Mild displacement. No dislocation. No suspicious ramiro ny lesions. Soft tissues: Small elbow joint effusion. No suspicious soft tissue calcifications. IMPRESSION: Comminuted olecranon fracture is not felt to be significant change. Reviewed by: Arie Henning MD on 08/28/2022 3:55 PM PST Approved by: Arie Henning MD on 08/28/2022 3:55 PM PST Station ID: [id number]
--- NOTE | 2022-08-28 15:58 | XRAY Report ---
PROCEDURE: Forearm LT INDICATIONS: FOREARM PX POST FALL TECHNIQUE: 2 views of the forearm were acquired. COMPARISON: Same day left elbow radiographs, 08/24/2022. FINDINGS: Bones: Comminuted olecranon fracture. No radial or ulnar shaft fractures. No dislocation. No suspici ous bony lesions. Soft tissues: No suspicious soft tissue calcifications or masses. IMPRESSION: No radial or ulnar shaft fractures. Comminuted olecranon fracture. Reviewed by: Arie Henning MD on 08/28/2022 3:56 PM PST Approved by: Arie Henning MD on 08/28/2022 3:56 PM PST Station ID: [id number]
--- NOTE | 2022-08-28 16:00 | XRAY Report ---
PROCEDURE: Hand 3 View LT INDICATIONS: LEFT HAND PAIN POST FALL TECHNIQUE: 3 views of the hand(s) acquired. COMPARISON: None FINDINGS: Bones: No fractures or dislocations. Moderate degenerative change of the first CMC joint. No suspici ous bony lesions. Soft tissues: No suspicious soft tissue calcifications. IMPRESSION: No acute osseous abnormality. Reviewed by: Arie Henning MD on 08/28/2022 3:59 PM PST Approved by: Arie Henning MD on 08/28/2022 3:59 PM PST Station ID: [id number]
== END 2022-08-28 23:59 | disposition home or self-care (01) ==
LOC: DI.WOS 13:13
PROVIDERS: ATTEND Orthopaedic Surgery
DX: M79.642 Pain in left hand (principal); M79.632 Pain in left forearm; S52.022D Displaced fracture of olecranon process without intraarticular extension of left ulna, subsequent encounter for closed fracture with routine healing

== ENCOUNTER 2022-08-29 06:27 | Day surgery (SDC) | payer MEDICARE, BC ==
[~2022-08-29 06:27] MED LIST: ACETAMINOPHEN 500 MG TABLET PO ONE; CEFAZOLIN 2G/50ML 0.9% NS 2 GM/50 ML BAG IV ONE; CELECOXIB 100 MG CAPSULE PO ONE
[2022-08-29] MEDS ORDERED: PROPOFOL 200 MG/20 ML VIAL IVP ONE (07:01)
[2022-08-29] MEDS ORDERED: ONDANSETRON 4 MG/2 ML VIAL ONE (07:01)
[2022-08-29] MEDS ORDERED: LIDOCAINE-PF 2% 10 ML AMP SUBQ ONE (07:01)
[2022-08-29] MEDS ORDERED: DEXAMETHASONE 4 MG/ML VIAL ONE (07:01)
[2022-08-29] MEDS ORDERED: ROPIVACAINE 0.5% PF 20 ML VIAL ONE (07:02)
[2022-08-29] MEDS ORDERED: BUPIVACAINE 0.25% PF 30 ML VIAL ONE (07:05)
[2022-08-29] MEDS ORDERED: BACITRACIN ZINC OINT 1 PACKET TOP ONE ×2 (07:05→08:00)
[2022-08-29] MEDS ORDERED: LACTATED RINGERS 1,000 ML IV ONE (07:06)
[2022-08-29] MEDS ORDERED: fentaNYL 100 MCG/2 ML VIAL ONE (07:06)
[2022-08-29] MEDS ORDERED: MIDAZOLAM 2 MG/2 ML VIAL ONE (07:06)
--- NOTE | 2022-08-29 07:20 | ANESTHESIA ---
Pre-Anesthesia VS, & Labs - Diagnosis DISPLACED LEFT OLECRANON FRACTURE - Procedure ORIF LEFT OLECRANON Vital Signs: Temp Pulse Resp BP Pulse Ox O2 Flow Rate 36 C L 52 L 14 149/68 H 100 08/29/22 06:54 08/29/22 06:54 08/29/22 06:54 08/29/22 06:54 08/29/22 06:54 Height: 5 ft 7 in Weight (kg): 80 kg Body Mass Index: 27.6 BMI Classification: Overweight - NPO >8 hours - Lab Results Fish Bones: 08/29/22 07:01 Home Medications and Allergies Home Medications: Ambulatory Orders Oxycodone HCl/Acetaminophen [Percocet 5-325 mg Tablet] 1 each PO Q6H PRN MDD 6 tabs 08/28/22 Metoprolol Tartrate 50 mg PO DAILY 03/18/13 lisinopriL [Lisinopril] 20 mg PO DAILY 03/18/13 Omeprazole [PriLOSEC] 20 mg PO DAILY 06/08/13 Multivitamin W/Minerals [Theragran M] 1 each PO DAILY 07/31/13 Ubidecarenone [Coq-10] 150 mg PO DAILY 07/31/13 Bloodbuilder 1 tab PO Q3D 12/14/13 Tadalafil [Cialis] 5 mg PO DAILY PRN 12/14/13 amLODIPine [Norvasc] 5 mg PO DAILY 12/14/13 Atorvastatin [Lipitor] 20 mg ORAL DAILY 08/13/15 Oxycodone HCl/Acetaminophen [Percocet 5-325 mg Tablet] 1 each PO Q6H PRN MDD 6 tabs 08/28/22 Allergies/Adverse Reactions: Allergies Allergy/AdvReac Type Severity Reaction Status Date / Time ciprofloxacin Allergy Hives Verified 08/24/22 13:29 Anes History & Medical History - Anesthetic History Anesthesia Complications: reports: No previous complications - Medical History Cardiovascular: reports: Hypertension, High cholesterol, Coronary artery disease, [place] Pulmonary: reports: None Gastrointestinal: reports: GERD Urinary: reports: Benign prostate hypertrophy Musculoskeletal: reports: Osteoarthritis Endocrine/Autoimmune: reports: None Skin: reports: None Smoking Status: Never smoker - Surgical History General: reports: Appendectomy, Bowel surgery Cardiothoracic: reports: Coronary stent Neurologic: reports: Other Exam General: Alert Dental: WNL Mouth Opening: Greater than 4 Fingerbreadths Neck Mobility: Normal Mallampati classification: II Thyromental Distance: greater than 6 cm Respiratory: Lungs clear Cardiovascular: Regular rate, Normal S1, Normal S2 Plan Anesthesia Type: General, Supraclavicular Block Consent for Procedure(s) Verified and Reviewed: Yes Code Status: Attempt Resuscitation ASA classification: 3-Severe systemic disease Is this case an emergency?: No
[2022-08-29 07:24] LABS: EOSINOPHILS # (AUTO) 0.2 10^3/uL (0.0-0.7); EOSINOPHILS % (AUTO) 5.5 %; HCT - HEMATOCRIT 35.5 % (42.0-52.0); HGB - HEMOGLOBIN 12.5 g/dL (14.0-18.0); LYMPHOCYTES # (AUTO) 0.9 10^3/uL (1.5-3.5); LYMPHOCYTES % (AUTO) 30.8 %; MEAN CORPUSCULAR HEMOGLOBIN 35.4 pg (27.0-31.0); MEAN CORPUSCULAR HGB CONC 35.2 g/dL (32.0-36.0); MEAN CORPUSCULAR VOLUME 100.6 fL (80.0-94.0); MEAN PLATELET VOLUME 9.5 fL (7.4-11.4); MONOCYTES # (AUTO) 0.3 10^3/uL (0.0-1.0); MONOCYTES % (AUTO) 11.8 %; NEUTROPHILS # (AUTO) 1.5 10^3/uL (1.5-6.6); NEUTROPHILS % (AUTO) 50.6 %; PLT - PLATELET COUNT 134 10^3/uL (130-450); RED BLOOD COUNT 3.53 10^6/uL (4.70-6.10); RED CELL DISTRIBUTION WIDTH 12.4 % (12.0-15.0); WHITE BLOOD COUNT 2.9 x10^3/uL (4.8-10.8)
[2022-08-29 07:26] LABS: SLIDE REVIEW? Indicated
[2022-08-29 07:47] LABS: PLATELET ESTIMATE, MANUAL NORMAL (130-450,000) (NORMAL); PLATELET MORPHOLOGY NORMAL APPEARANCE (NORMAL); RBC MORPHOLOGY (MULTIPLE) NORMAL APPEARANCE (NORMAL)
[2022-08-29] MEDS ORDERED: ePHEDrine 50 MG/ML VIAL IVP ONE (07:57)
[2022-08-29] MEDS ORDERED: BUPIVACAINE 0.25% PF 30 ML VIAL SUBQ ONE ×2 (08:00)
[2022-08-29] MEDS ORDERED: ATROPINE ABBOJECT 1 MG/10 ML SYRINGE IVP PRN (08:12)
[2022-08-29] MEDS ORDERED: METOCLOPRAMIDE 10 MG/2 ML VIAL IVP PRN (08:12)
[2022-08-29] MEDS ORDERED: NALOXONE 0.4 MG/ML VIAL IVP PRN (08:12)
[2022-08-29] MEDS ORDERED: fentaNYL 100 MCG/2 ML VIAL IVP PRN (08:12)
[2022-08-29] MEDS ORDERED: ePHEDrine 50 MG/ML VIAL IVP PRN (08:12)
[2022-08-29] MEDS ORDERED: HYDROmorphone 0.5 MG/0.5 ML SYRINGE IVP PRN (08:12)
[2022-08-29] MEDS ORDERED: MORPHINE 2 MG/ML CARPUJECT IVP PRN (08:12)
[2022-08-29] MEDS ORDERED: ONDANSETRON 4 MG/2 ML VIAL IVP PRN (08:12)
[2022-08-29] MEDS ORDERED: LACTATED RINGERS 1,000 ML IV SCH (09:00)
[2022-08-29] MEDS ORDERED: VANCOMYCIN 1 GM VIAL ONE (10:08)
[2022-08-29] MEDS ORDERED: VANCOMYCIN 1 GM VIAL MC ONE (10:11)
[2022-08-29] MEDS ORDERED: LACTATED RINGERS 700 ML IV ONE (10:35)
[2022-08-29] MEDS ORDERED: oxyCODONE 5 MG TABLET PO PRN (10:37)
[2022-08-29] MEDS ORDERED: CELECOXIB 100 MG CAPSULE PO PRN (10:37)
[2022-08-29] MEDS ORDERED: ACETAMINOPHEN 500 MG TABLET PO PRN (10:37)
[2022-08-29] MEDS ORDERED: ONDANSETRON ODT 4 MG TABLET TL PRN (10:37)
[2022-08-29] MEDS: HYDROmorphone 1 MG/ML CARPUJECT ONE ×2 (10:43→10:53)
--- NOTE | 2022-08-29 10:51 | OPERATIVE REPORT ---
Operative Report - General Procedure Date: 08/29/22 Planned Procedure: Open reduction internal fixation left olecranon Pre-Op Diagnosis: Closed, displaced, comminuted left olecranon fracture Procedure Performed: Open reduction internal fixation left olecranon using a [employer] locking olecranon plate Post Op Diagnosis: Same as preoperative diagnosis - Procedure Note Primary Surgeon: Best Gavin MD Secondary Surgeon: Natividad Gupta PAC Anesthesia Provider: Mary Grant CRNA Anesthesia Technique: General ET tube, Regional block Estimated Blood Loss (mL): 25 Indications: This is a relatively healthy and active 77-year-old gentleman who fell 20 feet from a ladder and sustained a relatively isolated injury to left elbow despite fall from such a height. His injury happened about 5 days ago. He is alert and fully oriented, complains of isolated pain to left elbow with limited motion left elbow. There is no neurovascular deficit to left upper extremity. He was evaluated in the emergency room after the injury, discharged to home and seen in the orthopedic clinic yesterday as outpatient. He had examination of the entire left upper extremity which showed isolated tenderness to the olecranon, limited motion left elbow, neurovascular intact, compartments soft, skin intact. There is no tenderness about wrist or forearm and complete radiographs were obtained of the left elbow, forearm, wrist and hand with isolated and comminuted fracture to the left olecranon without signs of dislocation. The patient agreed to the surgery and signed informed consent in the office. Findings: There is a mildly comminuted intra-articular and displaced fracture of the left olecranon. The distal humeral articular surface was intact. The triceps tendon was intact. Complications: None - Other Other Information/Narrative: The patient was brought to the operating room and placed in a supine position with the left arm over an arm extension table. The left upper extremity was prepped and draped in a sterile manner in the usual fashion. The C-arm image intensifier was covered with a sterile drape. A timeout procedure was performed by the entire operating room team and all were in agreement. After satisfactory anesthesia was achieved, a posterior lateral incision was made about the olecranon. After the fascia was incised, the fracture was easily identified with flexion of the elbow. The fracture fragments were exposed with gentle curettage and saline irrigation to remove hematoma. A sterile pneumatic tourniquet had been applied to the left arm and tourniquet was elevated 200 mmHg. The fracture seemed to reduce with traction on the proximal fragment with the elbow in partial flexion. The fracture was temporarily stabilized with a small bone clamp and 2 intramedullary K wires. This allowed for application of the olecranon plate made by [employer]. The plate was secured to bone with K wire. The C-arm image intensifier was used to obtain radiographs. Fracture manipulation was achieved to achieve a congruent ulnohumeral joint and a good reduction. The plate was then compressed to the ulnar shaft through the oblong screw hole. An additional shaft screw was inserted distally. Intramedullary screws were inserted proximally and the final screw was inserted through the plate to engage the coronoid process. Excellent fixation was achieved. There was no crepitus with range of motion, full range of motion of elbow and forearm and good stability. Suture was placed to the triceps tendon in a locking fashion using #2 FiberWire by [employer]; this was then taken beneath the plate and tied distally to provide additional fixation. The tourniquet was deflated after approximately 85 minutes. Hemostasis was achieved electrocautery. The fascia was closed with 2-0 Vicryl and the skin was closed standstill milton. Xeroform, gauze, cast padding and a posterior splint to hold the elbow in about 40 degrees of flexion. 2 g of Ancef were given. He was given a regional nerve block. He tolerated the procedure well. Vancomycin powder, 1 g was placed over the plate and prior to deep closure. A physician food and beverage assistant manager was medically necessary to help with prepping and draping, positioning, protection of vital structures, assistance during the procedure including wound closure, dressing and/or splinting.
[2022-08-29] MEDS ORDERED: oxyCODONE 5 MG TABLET ONE (11:22)
--- NOTE | 2022-08-29 11:34 | XRAY Report ---
PROCEDURE: OR C-Arm Procedure INDICATIONS: OLECRANON FX FLUORO TIME: 0:12 min TECHNIQUE: 4 intraoperative. Images were obtained. COMPARISON: 08/28/2022 Findings/impression: 4 intraoperative images were obtained for plate/screw fixation of the olecranon. Please see operative note for full details. Fluoroscopy time was 12 seconds. Reviewed by: Jassi Grissom MD on 08/29/2022 11:32 AM PST Approved by: Jassi Grissom MD on 08/29/2022 11:32 AM PST Station ID: [id number]
[2022-08-29] MEDS ORDERED: ACETAMINOPHEN 1,000 MG/100 ML 1,000 MG/100 ML BAG IV ONE ×2 (11:58→12:04)
[2022-08-29 13:24] VITALS: BP 118/72
--- NOTE | 2022-08-29 14:33 | ANESTHESIA POST OP EVALUATION ---
Anesthesia Post Eval - Post Anesthesia Eval Vitals: Last Vital Signs Temp 36.3 C L 08/29/22 13:15 Pulse 58 L 08/29/22 13:15 Resp 16 08/29/22 13:15 BP 118/72 08/29/22 13:15 Pulse Ox 99 08/29/22 13:15 O2 Flow Rate CV Function Including HR & BP: Stable Pain Control: Satisfactory Nausea & Vomiting: Negative Mental Status: Baseline Respiratory Status: Airway Patent Hydration Status: Satisfactory Anesthesia Complications: None
== END 2022-08-29 06:28 | disposition home or self-care (01) ==
LOC: SDS 06:27
PROVIDERS: ATTEND Orthopaedic Surgery
DX: S52.022A Displaced fracture of olecranon process without intraarticular extension of left ulna, initial encounter for closed fracture (principal); W11.XXXA Fall on and from ladder, initial encounter; I10 Essential (primary) hypertension
CPT/HCPCS: 24685; 85025; A9270; C1713; C1769; J0131; J0690; J1170; J2795; J3370; J7120

== ENCOUNTER 2022-09-24 10:10 | Outpatient (CLI) | payer MEDICARE, BC ==
[2022-09-24 15:44] LABS: ALBUMIN 4.3 g/dL (3.2-5.5); BILIRUBIN,DIRECT 0.1 mg/dL (0.1-0.5)
== END 2022-09-24 10:11 | disposition home or self-care (01) ==
LOC: LAB.S 10:10
PROVIDERS: ATTEND Registered Nurse
DX: B35.1 Tinea unguium (principal); Z79.899 Other long term (current) drug therapy
CPT/HCPCS: 36415; 80076

== ENCOUNTER 2022-10-16 13:48 | Outpatient (CLI) | payer MEDICARE, BC ==
--- NOTE | 2022-10-16 18:08 | XRAY Report ---
PROCEDURE: Elbow 3 View LT INDICATIONS: LEFT ELBOW FRACTURE TECHNIQUE: 3 views of the elbow were acquired. COMPARISON: 08/28/2022 FINDINGS: Bones: Patient is status post internal fixation of proximal olecranon with surgical hardware in place . Elbow alignment is anatomic. No other fracture or dislocation. No evidence of hardware loosening or failure. No suspicious bony lesions. Soft tissues: Moderate joint effusion is seen with displacement of anterior fat pad. No suspicious s oft tissue calcifications. IMPRESSION: 1. Post-ORIF changes in proximal olecranon. No new fracture or dislocation. Anatomic elbow alignment. No gross hardware loosening or failure. Moderate joint effusion. Reviewed by: Satish Manzanares MD on 10/16/2022 6:06 PM PDT Approved by: Satish Manzanares MD on 10/16/2022 6:06 PM PDT Station ID: [id number]
== END 2022-10-16 13:54 | disposition home or self-care (01) ==
LOC: DI.WOS 13:48
PROVIDERS: ATTEND Orthopaedic Surgery
DX: S52.022D Displaced fracture of olecranon process without intraarticular extension of left ulna, subsequent encounter for closed fracture with routine healing (principal)

== ENCOUNTER 2022-11-06 10:27 | Outpatient (CLI) | payer MEDICARE, BC ==
[2022-11-06 15:24] LABS: ALBUMIN 4.1 g/dL (3.2-5.5); BILIRUBIN,DIRECT 0.1 mg/dL (0.1-0.5); BILIRUBIN,TOTAL 0.8 mg/dL (0.2-1.0); TOTAL PROTEIN 7.2 g/dL (6.7-8.2)
== END 2022-11-06 10:28 | disposition home or self-care (01) ==
LOC: LAB.S 10:27
PROVIDERS: ATTEND Registered Nurse
DX: B35.1 Tinea unguium (principal); Z79.899 Other long term (current) drug therapy
CPT/HCPCS: 36415; 80076

== ENCOUNTER 2022-11-27 08:00 | Outpatient (CLI) | payer MEDICARE, BC ==
--- NOTE | 2022-11-27 16:29 | XRAY Report ---
PROCEDURE: Elbow 3 View LT INDICATIONS: LEFT ELBOW FRACTURE TECHNIQUE: 3 views of the elbow were acquired. COMPARISON: X-ray elbow 10/16/2022 FINDINGS: Bones: No fractures or dislocations. No suspicious bony lesions. ORIF of the olecranon is present . Hardware is intact without evidence of hardware fracture or periprosthetic lucency to suggest loose kt. Alignment is stable. Fracture lucencies persist slightly less prominent. Soft tissues: No effusion. No suspicious soft tissue calcifications or masses. IMPRESSION: Stable ORIF with slightly less prominent appearance of fracture lucencies. Reviewed by: Guerline Mcbride MD on 11/27/2022 4:28 PM PDT Approved by: Guerline Mcbride MD on 11/27/2022 4:28 PM PDT Station ID: [id number]
== END 2022-11-27 23:59 | disposition home or self-care (01) ==
LOC: DI.WOS 08:00
PROVIDERS: ATTEND Orthopaedic Surgery
DX: S52.022D Displaced fracture of olecranon process without intraarticular extension of left ulna, subsequent encounter for closed fracture with routine healing (principal)

== ENCOUNTER 2022-12-20 08:55 | Outpatient (CLI) | payer MEDICARE, BC ==
[2022-12-20 15:45] LABS: ALBUMIN 4.5 g/dL (3.2-5.5); BILIRUBIN,DIRECT 0.1 mg/dL (0.1-0.5); TOTAL PROTEIN 7.1 g/dL (6.7-8.2)
== END 2022-12-20 08:56 | disposition home or self-care (01) ==
LOC: LAB.S 08:55
PROVIDERS: ATTEND Registered Nurse
DX: B35.1 Tinea unguium (principal); Z79.899 Other long term (current) drug therapy
CPT/HCPCS: 36415; 80076

== ENCOUNTER 2023-01-08 08:00 | Outpatient (CLI) | payer MEDICARE, BC ==
--- NOTE | 2023-01-08 16:36 | XRAY Report ---
PROCEDURE: Elbow 3 View LT INDICATIONS: LEFT ELBOW ORIF TECHNIQUE: 3 views of the elbow were acquired. COMPARISON: 11/27/2022 FINDINGS: Bones: Postsurgical changes from prior ORIF redemonstrated with an ulnar plate and multiple screws. Ulnar fracture alignment appears similar to before. Hardware appears intact. Soft tissues: No effusion. No suspicious soft tissue calcifications . IMPRESSION: Postsurgical changes from ORIF. Ulnar fracture appears in similar alignment. Reviewed by: Eric Paz MD on 01/08/2023 4:35 PM PDT Approved by: Eric Paz MD on 01/08/2023 4:35 PM PDT Station ID: [id number]
== END 2023-01-08 23:59 | disposition home or self-care (01) ==
LOC: DI.WOS 08:00
PROVIDERS: ATTEND Orthopaedic Surgery
DX: S52.022D Displaced fracture of olecranon process without intraarticular extension of left ulna, subsequent encounter for closed fracture with routine healing (principal)

== ENCOUNTER 2023-02-01 09:35 | Outpatient (CLI) | payer MEDICARE, BC ==
[2023-02-01 15:40] LABS: ALBUMIN 4.3 g/dL (3.2-5.5); BILIRUBIN,DIRECT 0.1 mg/dL (0.1-0.5); TOTAL PROTEIN 7.1 g/dL (6.7-8.2)
== END 2023-02-01 09:36 | disposition home or self-care (01) ==
LOC: LAB.S 09:35
PROVIDERS: ATTEND Registered Nurse
DX: B35.1 Tinea unguium (principal); Z79.899 Other long term (current) drug therapy
CPT/HCPCS: 36415; 80076

== ENCOUNTER 2023-04-01 09:22 | Outpatient (CLI) | payer MEDICARE, BC ==
[2023-04-01 15:35] LABS: ALBUMIN 4.4 g/dL (3.2-5.5); BILIRUBIN,DIRECT 0.11 mg/dL (0.03-0.18); BILIRUBIN,TOTAL 0.6 mg/dL (0.2-1.0); TOTAL PROTEIN 6.6 g/dL (6.4-8.9)
== END 2023-04-01 09:23 | disposition home or self-care (01) ==
LOC: LAB.S 09:22
PROVIDERS: ATTEND Registered Nurse
DX: B35.1 Tinea unguium (principal); Z79.899 Other long term (current) drug therapy
CPT/HCPCS: 36415; 80076

== ENCOUNTER 2023-04-11 08:34 | Outpatient (CLI) | payer MEDICARE, BC ==
[2023-04-11 14:19] LABS: EOSINOPHILS % (AUTO) 4.2 %; HCT - HEMATOCRIT 43.5 % (42.0-52.0); HGB - HEMOGLOBIN 14.7 g/dL (14.0-18.0); LYMPHOCYTES % (AUTO) 40.6 %; MEAN CORPUSCULAR HEMOGLOBIN 34.3 pg (27.0-31.0); MEAN CORPUSCULAR HGB CONC 33.8 g/dL (32.0-36.0); MEAN CORPUSCULAR VOLUME 101.6 fL (80.0-94.0); MEAN PLATELET VOLUME 9.3 fL (7.4-11.4); MONOCYTES % (AUTO) 12.5 %; NEUTROPHILS % (AUTO) 41.7 %; PLT - PLATELET COUNT 159 10^3/uL (130-450); RED BLOOD COUNT 4.28 10^6/uL (4.70-6.10); RED CELL DISTRIBUTION WIDTH 12.8 % (12.0-15.0); WHITE BLOOD COUNT 2.9 x10^3/uL (4.8-10.8)
[2023-04-11 14:23] LABS: SLIDE REVIEW? Indicated
[2023-04-11 14:51] LABS: ALBUMIN 4.6 g/dL (3.2-5.5); ALKALINE PHOSPHATASE 55 IU/L (42-121); ALT ALANINE AMINOTRANSFERASE 23 IU/L (10-60); AST ASPARTATE AMINOTRANSFERASE 20 IU/L (10-42); BILIRUBIN,TOTAL 0.8 mg/dL (0.2-1.0); BUN - BLOOD UREA NITROGEN 16 mg/dL (6-20); CALCIUM 9.8 mg/dL (8.5-10.3); CARBON DIOXIDE - CO2 28 mmol/L (21-32); CHLORIDE 105 mmol/L (101-111); CHOL/HDL RATIO 3.8 (<5.0); CHOLESTEROL 185 mg/dL; GFR - MDRD 72 (>89); GLUCOSE 113 mg/dL (74-104); HDL CHOLESTEROL 49 mg/dL; LDL CHOLESTEROL,CALCULATED 91 mg/dL; LDL/HDL RATIO 1.9 (<3.6); POTASSIUM 4.7 mmol/L (3.5-4.5); SODIUM 138 mmol/L (135-145); TOTAL PROTEIN 6.9 g/dL (6.4-8.9); TRIGLYCERIDES 225 mg/dL (48-352); VLDL CHOLESTEROL 45 mg/dL
[2023-04-11 14:54] LABS: ABNORMAL LYMPHS % (MANUAL) 0 %; BAND NEUTROPHILS % (MANUAL) 0 %
[2023-04-11 15:02] LABS: EOSINOPHILS # (MANUAL) 0.1 10^3/uL (0-0.7); LYMPHOCYTES # (MANUAL) 1.3 10^3/uL (1.5-3.5); LYMPHOCYTES % (MANUAL) 46 %; MONOCYTES # (MANUAL) 0.2 10^3/uL (0.0-1.0); NEUTROPHILS # (MANUAL) 1.3 10^3/uL (1.5-6.6)
[2023-04-11 15:03] LABS: DIFFERENTIAL COMMENT MANUAL DIFFERENTIAL; PLATELET ESTIMATE, MANUAL NORMAL (130-450,000) (NORMAL); PLATELET MORPHOLOGY NORMAL APPEARANCE (NORMAL); RBC MORPHOLOGY (MULTIPLE) 1+ MACROCYTOSIS (NORMAL)
== END 2023-04-11 08:35 | disposition home or self-care (01) ==
LOC: LAB.S 08:34
PROVIDERS: ATTEND Registered Nurse
DX: I10 Essential (primary) hypertension (principal); E78.5 Hyperlipidemia, unspecified
CPT/HCPCS: 36415; 80053; 80061; 83721; 85025

== ENCOUNTER 2023-04-17 09:46 | Outpatient (CLI) | payer MEDICARE, BC ==
[2023-04-17 15:05] LABS: BILIRUBIN,URINE NEGATIVE (NEGATIVE); GLUCOSE, URINE (UA) NEGATIVE (NEGATIVE); KETONES,URINE (UA) NEGATIVE (NEGATIVE); LEUKOCYTE ESTERASE, URINE NEGATIVE (NEGATIVE); NITRITE,URINE NEGATIVE (NEGATIVE); OCCULT BLOOD,URINE NEGATIVE (NEGATIVE); PROTEIN,URINE NEGATIVE (NEGATIVE); UROBILINOGEN,URINE 0.2 (NORMAL) E.U./dL (NORMAL)
[2023-04-17 15:11] LABS: CLARITY,URINE CLEAR (CLEAR)
[2023-04-17 15:54] LABS: BACTERIA,URINE None Seen /HPF (None Seen); RBC,URINE None Seen /HPF (0-5); SQUAMOUS EPITHELIAL CELL,UR NONE SEEN (<= Few); WBC,URINE 0-3 /HPF (0-3)
== END 2023-04-17 09:47 | disposition home or self-care (01) ==
LOC: LAB.S 09:46
PROVIDERS: ATTEND Registered Nurse
DX: R82.998 Other abnormal findings in urine (principal)
CPT/HCPCS: 81001; 87086

== ENCOUNTER 2024-01-22 09:03 | Outpatient (CLI) | payer MEDICARE, BC ==
--- NOTE | 2024-01-22 13:46 | XRAY Report ---
PROCEDURE: Elbow 3+V LT INDICATIONS: DISPLACED FRACTURE OF OLECRANON TECHNIQUE: 3 views of the elbow were acquired. COMPARISON: Left elbow radiographs 01/08/2023 FINDINGS: Bones: Postsurgical changes are again seen from proximal olecranon fracture fixation. Mild arteries intact with unchanged alignment. Interval healing changes are seen with osseous bridging across the f racture line. Mild degenerative changes are seen in the elbow. Soft tissues: No effusion. No suspicious soft tissue calcifications. IMPRESSION: Postsurgical changes again seen from olecranon fracture fixation. Olecranon fracture now appears heal ed with solid osseous bridging. Reviewed by: Eric Buenrostro MD on 01/22/2024 1:45 PM PDT Approved by: Eric Buenrostro MD on 01/22/2024 1:45 PM PDT Station ID: [id number]
== END 2024-01-22 09:04 | disposition home or self-care (01) ==
LOC: DI.S 09:03
PROVIDERS: ATTEND Orthopaedic Surgery
DX: S52.022D Displaced fracture of olecranon process without intraarticular extension of left ulna, subsequent encounter for closed fracture with routine healing (principal); M19.022 Primary osteoarthritis, left elbow

== ENCOUNTER 2025-07-10 22:31 | Inpatient (IN) ==
--- NOTE | 2025-07-10 22:46 | ED Physician Documentation ---
PD HPI GI BLEED Stated complaint Stated Complaint: GI Chief complaint Chief Complaint: Abd Pain Additional information Additional information: 80-year-old with history of CAD status post stents presents with melena. Patient reports since Saturday he has had 1 or 2 melanotic stools daily. No bright red blood. No abdominal pain. He has not had nausea or vomiting. He did drink alcohol multiple days last week and did occasionally use NSAIDs. However, he does not use alcohol or NSAIDs daily. He went to a primary care doctor earlier today and had labs were checked. His hemoglobin was 9.,1 which was quite decreased from his last 14.2 in June. He was referred to the emergency department for further evaluation. He does take aspirin daily for his heart although stopped taking it on Saturday. Meds/Allgy Home Medications Ambulatory Orders Medication Instructions Recorded Confirmed iifphfmgqtyk-[id number] 1 ea PO DAILY 07/31/1312/27 fumarate 19 mg-folic acid 400 mcg tablet (Therapeutic-M) aspirin 81 mg tablet,delayed 81 mg PO QDAY 10/27/24 release (Adult Aspirin Regimen) cholecalciferol (vitamin D3) 25 25 mcg PO QDAY 5 07/09/25 mcg (1,000 unit) tablet clobetasol 0.05 % topical ointment 1 applic topical DIRECTED 10/27/24 07/09/25 coenzyme Q10 150 mg capsule 150 mg PO QDAY 10/27/24 dorzolamide 22.3 mg-timolol 6.8 1 drp ophthalmic (eye) DIRECTED 10/27/24 07/09/25 mg/mL eye drops epinephrine 0.3 mg/0.3 mL 0.3 mg IM DIRECTED 07/09/25 injection, auto-injector (EpiPen 2-Feliz) glucosamine 750 pw-ptjzaqoikgx-hjn 1 tab PO QDAY 10/2707/09/25 no1 644 mg-C 30 mg-jose enrique 1 mg tablet (Osteo Bi-Flex Triple Strength) amlodipine 5 mg tablet 5 mg PO QDAY #90 tabs 07/09/25 atorvastatin 20 mg tablet (Lipitor) 20 mg PO QPM #90 t abs 05/24/25 07/09/25 lisinopril 20 mg tablet 20 mg PO QDAY #90 tabs 05/2407/09/25 metoprolol succinate 50 mg 50 mg PO QDAY #90 tabs 05/0607/09/25 tablet,extended release 24 hr tadalafil 5 mg tablet (Cialis) 5 mg PO QDAY PRN erecti le 05/24/25 07/09/25 dysfunction #90 tabs omeprazole 20 mg capsule,delayed 20 mg PO QDAY #90 cap s 05/25/25 07/09/25 release Allergies Allergies Allergy/AdvReac Type Severity Reaction Status Date / Time ciprofloxacin Allergy Hives Verified 07/10/25 22:43 BEES Allergy Severe SWELLING Uncoded 07/10/25 22:43 AT STING SITE, LARGE SWELLING PER PT PFSH Active Problems All Active Problems (Updated 07/10/25 @ 23:23 by Reza Nicole MD) Acute anemia (Acute) Melena (Acute) Alcohol use (Acute) Melena (Acute) Visit for suture removal (Acute) Piriformis syndrome of left side (Acute) Osteoarthritis (Acute) Impaired fasting glucose (Acute) GERD (gastroesophageal reflux disease) (Acute) Benign essential hypertension (Acute) Hyperlipidemia (Acute) CAD (coronary artery disease) (Acute) Tinnitus (Acute) Allergic rhinitis (Acute) Erectile dysfunction (Acute) Depression (Acute) Eczema (Acute) Degenerative joint disease of knee, right (Acute) Degenerative joint disease of knee, left (Acute) Bee sting allergy (Acute) BPH (benign prostatic hyperplasia) (Acute) Medical History Medical History (Updated 07/10/25 @ 23:23 by Reza Nicole MD) Screening for prostate cancer Displaced fracture of olecranon process without intraarticular extension of left ulna, initial encounter for closed fracture Atypical chest pain GERD (gastroesophageal reflux disease) Hypertension Surgical History Surgical History (Updated 11/13/24 @ 07:41 by Caitlin Cunha LPN) S/P coronary artery stent placement x2 History of back surgery S/P appendectomy Family History Family History (Updated 11/13/24 @ 07:40 by Caitlin Cunha LPN) Other Adopted Family history unknown Social History Social History Smoking Status: Former smoker If you are a former smoker, when did you quit? (Date/Year): 1970 Number of Years Smoked: 3 Do you dip or chew tobacco?: No Do you vape?: No Do you feel safe in your home environment?: Yes History of physical, verbal, emotional, or financial abuse?: No ETOH Use: Wine and Beer Frequency: Weekly Substance Use: denies use POLST Patient has POLST: No Exam Exam Vital Signs: Vital Signs x48h Temp Pulse Resp BP Pulse Ox 07/10/25 22:37 36.9 C 85 18 165/94 H 100 Resting comfortably in no acute distress. He is not tachycardic or hypotensive. He does appear pale. Lungs are clear to auscultation bilaterally. S1 and S2 are audible. Abdomen is soft and nontender. Moving all extremities without focal neurologic deficit. Results Vitals Vitals: Vital Signs - 24 hr 07/10/25 22:37 Temperature 36.9 C Temperature Source Temporal Artery Scan Pulse Rate 85 Respiratory Rate 18 Blood Pressure 165/94 H O2 Saturation 100 O2 Source Room air Pain Intensity 0 Oxygen O2 Source Room air Labs Labs: Laboratory Tests 07/10/25 22:56 WBC 4.0 L RBC 2.42 L Hgb 8.4 L Hct 24.8 L MCV 102.5 H MCH 34.7 H MCHC 33.9 RDW 13.8 Plt Count 154 MPV 9.1 Neut # (Auto) 2.2 Lymph # (Auto) 1.2 L [place] # (Auto) 0.4 Eos # (Auto) 0.1 Baso # (Auto) 0.0 Absolute Nucleated RBC 0.00 Nucleated RBC % 0.0 PT 11.5 INR 1.0 APTT 21.9 L Sodium 136 Potassium 4.0 Chloride 105 Carbon Dioxide 27 Anion Gap 4.0 L BUN 22 H Creatinine 0.9 Estimated GFR (MDRD) 81 L Glucose 102 Calcium 9.3 Total Bilirubin 0.5 AST 21 ALT 24 Alkaline Phosphatase 39 L Total Protein 6.2 L Albumin 4.3 Globulin 1.9 L Albumin/Globulin Ratio 2.3 H PD Medical Decision Making ED course ED course: This patient presents with multiple days of melena. I do not think he has varices since he does not drink daily. I think he has gastritis from recent alcohol and NSAID use. Hemoglobin this evening is 8.4 down from 9.1 earlier. Thankfully, he is hemodynamically stable. I spoke to Dr. Mitchell, on-call surgeon, who thought the patient was appropriate for admission here despite endoscopy not being available till Saturday. She recommends starting a bowel preparation tomorrow potentially for endoscopy on Saturday. PT and PTT are not significantly abnormal. We will admit the patient to the hospitalist service for his GI bleed. I do not foresee acute decompensation given that his symptoms have been going on for 5 days and he is hemodynamically stable now. Discharge Plan Discharge Patient Disposition: [facility] DC/Xfer Clinical Impression: Melena, Acute anemia
--- OUTSIDE RECORDS SUMMARY | 2025-07-10 22:48 | EXTERNAL MEDICAL SUMMARY RPT | Continuity of Care Document ---
Author Organization [place] Address [address] [address] Phone Problems date description facility 2025-06-15 09:29 Essential (primary) hypertensio n [facility] 2025-06-15 11:34 Essential (primary) hypertensio n [facility] 2025-06-16 00:06 Essential (primary) hypertensio n [facility] 2025-07-09 10:08 Essential (primary) hypertensio n [facility] 2025-07-09 10:08 Melena [facility] 2025-07-09 10:41 Essential (primary) hypertensio n [facility] 2025-07-09 10:41 Melena [facility] 2025-07-09 14:30 Essential (primary) hypertensio n [facility] 2025-07-09 14:30 Melena [facility] 2025-07-09 14:30 [facility] Results/Labs test date facility value unit notes Result panel 1 NUCLEATED RED BLOOD CELLS AUTO 2025-06-15 09:22 [facility] 0.0 /100wbc (missing) BASOPHILS # (AUTO) 2025-06-15 09:22 [facility] 0.0 10 3/ul (missing) NRBC ABSOLUTE COUNT (AUTO) 2025-06-15 09:22 [facility] 0.00 x10 3/ul (missing) EOSINOPHILS # (AUTO) 2025-06-15 09:22 [facility] 0.2 10 3/ul (missing) MONOCYTES # (AUTO) 2025-06-15 09:22 [facility] 0.4 10 3/ul (missing) CREATININE 2025-06-15 09:22 [facility] 0.9 mg/dl As of February 2023 testing method has changed, this may include reference ranges. LYMPHOCYTES # (AUTO) 2025-06-15 09:22 [email or web address] 1.0 10 3/ul (missing) BILIRUBIN,TOTAL 2025-06-15 09:22 [email or web address] 1.1 mg/dl As of February 2023 testing method has changed, this may include reference ranges. LDL/HDL RATIO 2025-06-15 09:22 [email or web address] 1.5 (missing) (missing) NEUTROPHILS # (AUTO) 2025-06-15 09:22 [email or web address] 1.6 10 3/ul (missing) MEAN CORPUSCULAR VOLUME 2025-06-15 09:22 [facility] 100.5 fl (missing) CHLORIDE 2025-06-15 09:22 [email or web address] 104 mmol/l As of February 2023 testing method has changed, this may include reference ranges. GLUCOSE 2025-06-15: [facility] 109 mg/dl As of February 2023 testing method has changed, this may include reference ranges. RED CELL DISTRIBUTION WIDTH 2025-06-15 09:22 [email or web address] 13.0 % (missing) SODIUM 2025-06-15 09:22 [email or web address] 138 mmol/l Unknown HGB - HEMOGLOBIN 2025-06-15:22 [email or web address] 14.2 g/dl (missing) CHOLESTEROL 2025-06-15:22 [facility] 155 mg/dl Total Cholesterol Risk Classification Cholesterol Level Risk Classification <200 mg/dL Desirable 200-239 mg/dL Borderline High >240 mg/dL High As of February 2023 testing method has changed, this may include reference ranges. BUN - BLOOD UREA NITROGEN 2025-06-15:22 [facility] 17 mg/dl As of February 2023 testing method has changed, this may include reference ranges. TRIGLYCERIDES 2025-06-15:22 [facility] 171 mg/dl Unknown Triglyceride Risk Classification <150 mg/dL Normal 150-199 mg/dL Borderline High 200-499 mg/dL High >500 mg/dL Very High As of February 2023 testing method has changed, this may include reference ranges. PLT - PLATELET COUNT 2025-06-15 09: [email or web address] 187 10 3/ul (missing) ALBUMIN/GLOBULIN RATIO 2025-06-15 09: [email or web address] 2.0 (missing) (missing) GLOBULIN 2025-06-15 09:22 [facility] 2.2 g/dl (missing) AST ASPARTATE AMINOTRANSFERASE 2025-06-15 09:22 [email or web address] 23 iu/l As of February 2023 testing method has changed, this may include reference ranges. ALT ALANINE AMINOTRANSFERASE 2025-06-15: [facility] 24 iu/l As of February 2023 testing method has changed, this may include reference ranges. CARBON DIOXIDE - CO2 2025-06-15: [facility] 28 mmol/l As of February 2023 testing method has changed, this may include reference ranges. CHOL/HDL RATIO 2025-06-15:22 [email or web address] 3.2 (missing) NATIONAL CHOLESTEROL GUIDELINE [facility] ([facility]) guidelines for classificaton, testing and management of cholesterol levels in adults over 20 years of age. This new classification creates three categories of risk for coronary heart disease, regardless of age or sex, according to total amd LDL cholesterols levels: Based on total cholesterol level Desirable <200 mg/dl Borderline-high 200-239 mg/dl High >=240 mg/dl Based on cholesterol ratio CHD RISK CHOL/HDL RATIO --- MALE FEMALE 0.5 x Average 3.4 3.3 1.0 x Average 5.0 4.4 2.0 x Average 9.6 7.1 3.0 x Average 13.5 11.0 WHITE BLOOD COUNT 2025-06-15: [email or web address] 3.2 x10 3/ul (missing) VLDL CHOLESTEROL 2025-06-15:22 [facility] 34 mg/dl (missing) MEAN CORPUSCULAR HGB CONC 2025-06-15 09:22 [facility] 34.2 g/dl (missing) MEAN CORPUSCULAR HEMOGLOBIN 2025-06-15: [facility] 34.4 pg (missing) RED BLOOD COUNT 2025-06-15: [facility] 4.13 10 6/ul (missing) ALBUMIN 2025-06-15: [facility] 4.5 g/dl As of February 2023 testing method has changed, this may include reference ranges. POTASSIUM 2025-06-15 [facility] 4.5 mmol/l As of February 2023 testing method has changed, this may include reference ranges. HCT - HEMATOCRIT 2025-06-15: [facility] 41.5 % (missing) ALKALINE PHOSPHATASE 2025-06-15 [facility] 42 iu/l As of February 2023 testing method has changed, this may include reference ranges. HDL CHOLESTEROL 2025-06-15: [facility] 48 mg/dl Coronary Heart Disease Risk Classification HDL Level Risk factor < 40 mg/dL major risk > 60 mg/dL negative risk As of February 2023 testing method has changed, this may include reference ranges. ANION GAP 2025-06-15 [facility] 6.0 (missing) (missing) TOTAL PROTEIN 2025-06-15 [facility] 6.7 g/dl As of February 2023 testing method has changed, this may include reference ranges. LDL CHOLESTEROL,CALCULATED 2025-06-15 [facility] 73 mg/dl LDLD REFERENCE RANGE AND CARDIOVASCULAR RISK: <130 mg/dL Desirable 130-159 mg/dL Borderline High Risk >160 mg/dL High Risk GFR - MDRD 2025-06-15: [facility] 81 (missing) The IDMS-traceable MDRD Study Equation has been validated extensively in and populations between the ages of 18 and 70 with impaired kidney function (eGFR < 60 mL/min/1.73m2) and has shown good performance for patients with all common causes of kidney disease. Although this equation has not been validated for patients older than 70, an MDRD-derived eGFR may still be a useful tool for providers caring for patients older than 70. References: http://www.nkdep.ni h.gov/lab-evaluatio n/gfr/creatinine-st and ardization, last updated October 2011. MEAN PLATELET VOLUME 2025-06-15 09:22 [facility] 9.8 fl (missing) CALCIUM 2025-06-15 09:22 [facility] 9.8 mg/dl As of February 2023 testing method has changed, this may include reference ranges. Result panel 2 NUCLEATED RED BLOOD CELLS AUTO 2025-07-10 07:20 [email or web address] 0.0 /100wbc (missing) BASOPHILS # (AUTO) 2025-07-10 07:20 [facility] 0.0 10 3/ul (missing) NRBC ABSOLUTE COUNT (AUTO) 2025-07-10 07:20 [email or web address] 0.00 x10 3/ul (missing) EOSINOPHILS # (AUTO) 2025-07-10 07:20 [facility] 0.2 10 3/ul (missing) MONOCYTES # (AUTO) 2025-07-10 07:20 [facility] 0.4 10 3/ul (missing) BILIRUBIN,TOTAL 2025-07-10 07:20 [email or web address] 0.6 mg/dl As of February 2023 testing method has changed, this may include reference ranges. CREATININE 2025-07-10 07:20 [email or web address] 0.9 mg/dl As of February 2023 testing method has changed, this may include reference ranges. INR 2025-07-10 07:20 [email or web address] 1.0 (missing) Oral Anticoagulant Indication INR range Venous Thrombosis, P.E. 2.0 - 3.0 Mechanical Valve 2.5 - 3.5 LYMPHOCYTES # (AUTO) 2025-07-10 07:20 [facility] 1.2 10 3/ul (missing) NEUTROPHILS # (AUTO) 2025-07-10 07:20 [facility] 1.4 10 3/ul (missing) MEAN CORPUSCULAR VOLUME 2025-07-10 07:20 [facility] 101.5 fl (missing) CHLORIDE 2025-07-10 07:20 [facility] 106 mmol/l As of February 2023 testing method has changed, this may include reference ranges. PT - PROTHROMBIN TIME 2025-07-10 07:20 [email or web address] 11.8 secs N UNK GLUCOSE 2025-07-10 07:20 [facility] 113 mg/dl As of February 2023 testing method has changed, this may include reference ranges. RED CELL DISTRIBUTION WIDTH 2025-07-10 07:20 [facility] 13.7 % (missing) SODIUM 2025-07-10 07:20 [facility] 137 mmol/l Unknown PLT - PLATELET COUNT 2025-07-10 07:20 [facility] 150 10 3/ul (missing) ALBUMIN/GLOBULIN RATIO 2025-07-10 07:20 [facility] 2.0 (missing) (missing) GLOBULIN 2025-07-10 07:20 [facility] 2.1 g/dl (missing) RED BLOOD COUNT 2025-07-10 07:20 [facility] 2.63 10 6/ul (missing) AST ASPARTATE AMINOTRANSFERASE 2025-07-10 07: [facility] 22 iu/l As of February 2023 testing method has changed, this may include reference ranges. BUN - BLOOD UREA NITROGEN 2025-07-10 07:20 [facility] 24 mg/dl As of February 2023 testing method has changed, this may include reference ranges. ALT ALANINE AMINOTRANSFERASE 2025-07-10 07:20 [facility] 26 iu/l As of February 2023 testing method has changed, this may include reference ranges. CARBON DIOXIDE - CO2 2025-07-10 07:20 [facility] 26 mmol/l As of February 2023 testing method has changed, this may include reference ranges. HCT - HEMATOCRIT 2025-07-10 07:20 [facility] 26.7 % (missing) WHITE BLOOD COUNT 2025-07-10 07:20 [facility] 3.1 x10 3/ul (missing) MEAN CORPUSCULAR HGB CONC 2025-07-10 07:20 [facility] 34.1 g/dl (missing) MEAN CORPUSCULAR HEMOGLOBIN 2025-07-10 07:20 [facility] 34.6 pg (missing) POTASSIUM 2025-07-10 07:20 [facility] 4.2 mmol/l As of February 2023 testing method has changed, this may include reference ranges. ALBUMIN 2025-07-10 07:20 [facility] 4.3 g/dl As of February 2023 testing method has changed, this may include reference ranges. ALKALINE PHOSPHATASE 2025-07-10 07:20 [facility] 42 iu/l As of February 2023 testing method has changed, this may include reference ranges. ANION GAP 2025-07-10 07:20 [facility] 5.0 (missing) (missing) TOTAL PROTEIN 2025-07-10 07:20 [facility] 6.4 g/dl As of February 2023 testing method has changed, this may include reference ranges. GFR - MDRD 2025-07-10 07:20 [facility] 81 (missing) The IDMS-traceable MDRD Study Equation has been validated extensively in and populations between the ages of 18 and 70 with impaired kidney function (eGFR < 60 mL/min/1.73m2) and has shown good performance for patients with all common causes of kidney disease. Although this equation has not been validated for patients older than 70, an MDRD-derived eGFR may still be a useful tool for providers caring for patients older than 70. References: http://www.nkdep.[place].gov/lab-evaluat ion/gfr/creatinine -stand ardization, last updated October 2011. MEAN PLATELET VOLUME 2025-07-10 07:20 [email or web address] 9.1 fl (missing) HGB - HEMOGLOBIN 2025-07-10 07:20 [facility] 9.1 g/dl (missing) CALCIUM 2025-07-10 07:20 [facility] 9.1 mg/dl As of February 2023 testing method has changed, this may include reference ranges. Social History date description facility
[2025-07-10 23:01] LABS: HCT - HEMATOCRIT 24.8 % (42.0-52.0); HGB - HEMOGLOBIN 8.4 g/dL (14.0-18.0); MEAN PLATELET VOLUME 9.1 fL (7.4-11.4); NRBC ABSOLUTE COUNT (AUTO) 0.00 x10^3/uL; NUCLEATED RED BLOOD CELLS AUTO 0.0 /100WBC; PLT - PLATELET COUNT 154 10^3/uL (130-450); RED CELL DISTRIBUTION WIDTH 13.8 % (12.0-15.0)
[2025-07-10 23:14] LABS: ALT ALANINE AMINOTRANSFERASE 24.0 IU/L (10-60); AST ASPARTATE AMINOTRANSFERASE 21.0 IU/L (10-42); BUN - BLOOD UREA NITROGEN 22.0 mg/dL (6-20); CARBON DIOXIDE - CO2 27.0 mmol/L (21-32); CREATININE 0.9 mg/dL (0.6-1.3); GFR - MDRD 81.0 (>89)
[2025-07-10 23:16] LABS: INR 1.0 (0.8-1.2); PT - PROTHROMBIN TIME 11.5 secs (9.9-12.6)
--- OUTSIDE RECORDS SUMMARY | 2025-07-10 23:59 | EXTERNAL MEDICAL SUMMARY RPT | Continuity of Care Document ---
Author Organization [place] Address [address] [address] Phone Problems date description facility 2025-06-15 09:29 Essential (primary[facility] 2025-06-15 11:34 Essential (primary) [facility]ensio [facility] 2025-06-16 00:06 Essential (primary) [facility]ensio [facility] 2025-07-09 10:08 Essential (primary) hypertensio [facility] 2025-07-09 10:08 [facility] 2025-07-09 10:41 [facility] (primary) [facility]ensio [facility] 2025-07-09 10:41 [facility] 2025-07-09 14:30 Essential (primary) hypertensio [facility] 2025-07-09 14:30 [facility] 2025-07-09 14:30 Dizziness and giddiness [facility] 2025-07-10 22:43 Alcohol use, unspecified, uncom plicated [facility] 2025-07-10 22:43 Essential (primary) [facility]ensio [facility] 2025-07-10 22:43 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 [facility] 2025-07-10 22:43 Gastro-esophageal reflux diseas e without esophagitis [facility] 2025-07-10 22:43 [facility] 2025-07-10 22:43 Dizziness and giddiness [facility] Results/Labs test date facility value unit notes Result panel 1 NUCLEATED RED BLOOD CELLS AUTO 2025-06-15 09:22 Tr[facility] 0.0 /100wbc (missing) BASOPHILS # (AUTO) 2025-06-15 09:22 Smart Plate 0.0 10 3/ul (missing) NRBC ABSOLUTE COUNT (AUTO) 2025-06-15 09:22 Smart Plate 0.00 x10 3/ul (missing) EOSINOPHILS # (AUTO) 2025-06-15 09:22 [facility] 0.2 10 3/ul (missing) MONOCYTES # (AUTO) 2025-06-15 09:22 [facility] 0.4 10 3/ul (missing) CREATININE 2025-06-15 09:22 [facility] 0.9 mg/dl As of February 2023 testing method has changed, this may include reference ranges. LYMPHOCYTES # (AUTO) 2025-06-15 09:22 [facility] 1.0 10 3/ul (missing) BILIRUBIN,TOTAL 2025-06-15:22 Smart Plate 1.1 mg/dl As of February 2023 testing method has changed, this may include reference ranges. LDL/HDL RATIO 2025-06-15 09:22 [facility] 1.5 (missing) (missing) NEUTROPHILS # (AUTO) 2025-06-15 09:22 Smart Plate 1.6 10 3/ul (missing) MEAN CORPUSCULAR VOLUME 2025-06-15 09:22 Smart Plate 100.5 fl (missing) CHLORIDE 2025-06-15 09:22 Smart Plate 104 mmol/l As of February 2023 testing method has changed, this may include reference ranges. GLUCOSE 2025-06-15 09:22 Smart Plate 109 mg/dl As of February 2023 testing method has changed, this may include reference ranges. RED CELL DISTRIBUTION WIDTH 2025-06-15 09:22 Smart Plate 13.0 % (missing) SODIUM 2025-06-15 09:22 [facility] 138 mmol/l Unknown HGB - HEMOGLOBIN 2025-06-15 09:22 Smart Plate 14.2 g/dl (missing) CHOLESTEROL 2025-06-15 09:22 [facility] 155 mg/dl Total Cholesterol Risk Classification Cholesterol Level Risk Classification <200 mg/dL Desirable 200-239 mg/dL Borderline High >240 mg/dL High As of February 2023 testing method has changed, this may include reference ranges. BUN - BLOOD UREA NITROGEN 2025-06-15: Smart Plate 17 mg/dl As of February 2023 testing method has changed, this may include reference ranges. TRIGLYCERIDES 2025-06-15: Smart Plate 171 mg/dl Unknown Triglyceride Risk Classification <150 mg/dL Normal 150-199 mg/dL Borderline High 200-499 mg/dL High >500 mg/dL Very High As of February 2023 testing method has changed, this may include reference ranges. PLT - PLATELET COUNT 2025-06-15 09: Smart Plate 187 10 3/ul (missing) ALBUMIN/GLOBULIN RATIO 2025-06-15: Smart Plate 2.0 (missing) (missing) GLOBULIN 2025-06-15: Smart Plate 2.2 g/dl (missing) AST ASPARTATE AMINOTRANSFERASE 2025-06-15: Smart Plate 23 iu/l As of February 2023 testing method has changed, this may include reference ranges. ALT ALANINE AMINOTRANSFERASE 2025-06-15: Smart Plate 24 iu/l As of February 2023 testing method has changed, this may include reference ranges. CARBON DIOXIDE - CO2 2025-06-15 Smart Plate 28 mmol/l As of February 2023 testing method has changed, this may include reference ranges. CHOL/HDL RATIO 2025-06-15: Smart Plate 3.2 (missing) NATIONAL CHOLESTEROL GUIDELINE NATIONAL HEART, [...] Average 13.5 11.0 WHITE BLOOD COUNT 2025-06-15: Smart Plate 3.2 x10 3/ul (missing) VLDL CHOLESTEROL 2025-06-15 09:22 Smart Plate 34 mg/dl (missing) MEAN CORPUSCULAR HGB CONC 2025-06-15 09:22 Smart Plate 34.2 g/dl (missing) MEAN CORPUSCULAR HEMOGLOBIN 2025-06-15: Smart Plate 34.4 pg (missing) RED BLOOD COUNT 2025-06-15: Smart Plate 4.13 10 6/ul (missing) ALBUMIN 2025-06-15: Smart Plate 4.5 g/dl As of February 2023 testing method has changed, this may include reference ranges. POTASSIUM 2025-06-15: Smart Plate 4.5 mmol/l As of February 2023 testing method has changed, this may include reference ranges. HCT - HEMATOCRIT 2025-06-15: Smart Plate 41.5 % (missing) ALKALINE PHOSPHATASE 2025-06-15: Smart Plate 42 iu/l As of February 2023 testing method has changed, this may include reference ranges. HDL CHOLESTEROL 2025-06-15: Smart Plate 48 mg/dl Coronary Heart Disease Risk Classification HDL Level Risk factor < 40 mg/dL major risk > 60 mg/dL negative risk As of February 2023 testing method has changed, this may include reference ranges. ANION GAP 2025-06-15: Smart Plate 6.0 (missing) (missing) TOTAL PROTEIN 2025-06-15: Smart Plate 6.7 g/dl As of February 2023 testing method has changed, this may include reference ranges. LDL CHOLESTEROL,CALCULATED 2025-06-15: Smart Plate 73 mg/dl LDLD REFERENCE RANGE AND CARDIOVASCULAR RISK: <130 mg/dL Desirable 130-159 mg/dL Borderline High Risk >160 mg/dL High Risk GFR - MDRD 2025-06-15 09:22 Smart Plate 81 (missing) The IDMS-traceable MDRD Study Equation [...] for patients older than 70. References: http://www.nkdep.ni .gov/lab-evaluatio n/gfr/creatinine-st and ardization, last updated October 2011. MEAN PLATELET VOLUME 2025-06-15 09:22 Smart Plate 9.8 fl (missing) CALCIUM 2025-06-15 09:22 Smart Plate 9.8 mg/dl As of February 2023 testing method has changed, this may include reference ranges. Result panel 2 NUCLEATED RED BLOOD CELLS AUTO 2025-07-10 07:20 Smart Plate 0.0 /100wbc (missing) BASOPHILS # (AUTO) 2025-07-10 07:20 Smart Plate 0.0 10 3/ul (missing) NRBC ABSOLUTE COUNT (AUTO) 2025-07-10 07:20 Smart Plate 0.00 x10 3/ul (missing) EOSINOPHILS # (AUTO) 2025-07-10 07:20 Smart Plate 0.2 10 3/ul (missing) MONOCYTES # (AUTO) 2025-07-10 07:20 Smart Plate 0.4 10 3/ul (missing) BILIRUBIN,TOTAL 2025-07-10 07:20 Smart Plate 0.6 mg/dl As of February 2023 testing method has changed, this may include reference ranges. CREATININE 2025-07-10 07:20 Smart Plate 0.9 mg/dl As of February 2023 testing method has changed, this may include reference ranges. INR 2025-07-10 07:20 Smart Plate 1.0 (missing) Oral Anticoagulant Indication INR range Venous Thrombosis, P.E. 2.0 - 3.0 Mechanical Valve 2.5 - 3.5 LYMPHOCYTES # (AUTO) 2025-07-10 07:20 Smart Plate 1.2 10 3/ul (missing) NEUTROPHILS # (AUTO) 2025-07-10 07:20 Smart Plate 1.4 10 3/ul (missing) MEAN CORPUSCULAR VOLUME 2025-07-10 07:20 Smart Plate 101.5 fl (missing) CHLORIDE 2025-07-10 07:20 Smart Plate 106 mmol/l As of February 2023 testing method has changed, this may include reference ranges. PT - PROTHROMBIN TIME 2025-07-10 07:20 Smart Plate 11.8 secs N UNK GLUCOSE 2025-07-10 07:20 Smart Plate 113 mg/dl As of February 2023 testing method has changed, this may include reference ranges. RED CELL DISTRIBUTION WIDTH 2025-07-10 07:20 Smart Plate 13.7 % (missing) SODIUM 2025-07-10 07:20 Smart Plate 137 mmol/l Unknown PLT - PLATELET COUNT 2025-07-10 07:20 Smart Plate 150 10 3/ul (missing) ALBUMIN/GLOBULIN RATIO 2025-07-10 07:20 Smart Plate 2.0 (missing) (missing) GLOBULIN 2025-07-10 07:20 Smart Plate 2.1 g/dl (missing) RED BLOOD COUNT 2025-07-10 07:20 Smart Plate 2.63 10 6/ul (missing) AST ASPARTATE AMINOTRANSFERASE 2025-07-10 07:20 Smart Plate 22 iu/l As of February 2023 testing method has changed, this may include reference ranges. BUN - BLOOD UREA NITROGEN 2025-07-10 07:20 Smart Plate 24 mg/dl As of February 2023 testing method has changed, this may include reference ranges. ALT ALANINE AMINOTRANSFERASE 2025-07-10 07:20 Smart Plate 26 iu/l As of February 2023 testing method has changed, this may include reference ranges. CARBON DIOXIDE - CO2 2025-07-10 07:20 Smart Plate 26 mmol/l As of February 2023 testing method has changed, this may include reference ranges. HCT - HEMATOCRIT 2025-07-10 07:20 Smart Plate 26.7 % (missing) WHITE BLOOD COUNT 2025-07-10 07: Smart Plate 3.1 x10 3/ul (missing) MEAN CORPUSCULAR HGB CONC 2025-07-10 07:20 Smart Plate 34.1 g/dl (missing) MEAN CORPUSCULAR HEMOGLOBIN 2025-07-10 07:20 Smart Plate 34.6 pg (missing) POTASSIUM 2025-07-10 07:20 Smart Plate 4.2 mmol/l As of February 2023 testing method has changed, this may include reference ranges. ALBUMIN 2025-07-10 07:20 Smart Plate 4.3 g/dl As of February 2023 testing method has changed, this may include reference ranges. ALKALINE PHOSPHATASE 2025-07-10 07: Smart Plate 42 iu/l As of February 2023 testing method has changed, this may include reference ranges. ANION GAP 2025-07-10 07: Smart Plate 5.0 (missing) (missing) TOTAL PROTEIN 2025-07-10 07:20 Smart Plate 6.4 g/dl As of February 2023 testing method has changed, this may include reference ranges. GFR - MDRD 2025-07-10 07:20 Smart Plate 81 (missing) The IDMS-traceable MDRD Study Equation [...] October 2011. MEAN PLATELET VOLUME 2025-07-10 07:20 Smart Plate 9.1 fl (missing) HGB - HEMOGLOBIN 2025-07-10 07:20 Smart Plate 9.1 g/dl (missing) CALCIUM 2025-07-10: Smart Plate 9.1 mg/dl As of February 2023 testing method has changed, this may include reference ranges. Result panel 3 NUCLEATED RED BLOOD CELLS AUTO 2025-07-10 22:56 Smart Plate 0.0 /100wbc (missing) BASOPHILS # (AUTO) 2025-07-10 22:56 Smart Plate 0.0 10 3/ul (missing) NRBC ABSOLUTE COUNT (AUTO) 2025-07-10 22:56 Smart Plate 0.00 x10 3/ul (missing) EOSINOPHILS # (AUTO) 2025-07-10 22:56 Smart Plate 0.1 10 3/ul (missing) MONOCYTES # (AUTO) 2025-07-10 22:56 Smart Plate 0.4 10 3/ul (missing) BILIRUBIN,TOTAL 2025-07-10:56 Smart Plate 0.5 mg/dl As of February 2023 testing method has changed, this may include reference ranges. CREATININE 2025-07-10:56 Smart Plate 0.9 mg/dl As of February 2023 testing method has changed, this may include reference ranges. INR 2025-07-10 22:56 Smart Plate 1.0 (missing) Oral Anticoagulant Indication INR range Venous Thrombosis, P.E. 2.0 - 3.0 Mechanical Valve 2.5 - 3.5 LYMPHOCYTES # (AUTO) 2025-07-10 22:56 Smart Plate 1.2 10 3/ul (missing) GLOBULIN 2025-07-10 22:56 Smart Plate 1.9 g/dl (missing) GLUCOSE 2025-07-10:56 Smart Plate 102 mg/dl As of February 2023 testing method has changed, this may include reference ranges. MEAN CORPUSCULAR VOLUME 2025-07-10:56 Smart Plate 102.5 fl (missing) CHLORIDE 2025-07-10:56 Smart Plate 105 mmol/l As of February 2023 testing method has changed, this may include reference ranges. PT - PROTHROMBIN TIME 2025-07-10:56 Smart Plate 11.5 secs N RED CELL DISTRIBUTION WIDTH 2025-07-10:56 Smart Plate 13.8 % (missing) SODIUM 2025-07-10:56 Smart Plate 136 mmol/l (missing) PLT - PLATELET COUNT 2025-07-10 22:56 [facility] 154 10 3/ul (missing) NEUTROPHILS # (AUTO) 2025-07-10 22:56 [email or web address] 2.2 10 3/ul (missing) ALBUMIN/GLOBULIN RATIO 2025-07-10 22:56 [email or web address] 2.3 (missing) (missing) RED BLOOD COUNT 2025-07-10 22:56 [email or web address] 2.42 10 6/ul (missing) AST ASPARTATE AMINOTRANSFERASE 2025-07-10 22:56 [email or web address] 21 iu/l As of February 2023 testing method has changed, this may include reference ranges. PARTIAL THROMBOPLASTIN TIME 2025-07-10 22:56 [email or web address] 21.9 secs N BUN - BLOOD UREA NITROGEN 2025-07-10 22:56 [email or web address] 22 mg/dl As of February 2023 testing method has changed, this may include reference ranges. ALT ALANINE AMINOTRANSFERASE 2025-07-10 22:56 [email or web address] 24 iu/l As of February 2023 testing method has changed, this may include reference ranges. HCT - HEMATOCRIT 2025-07-10 22:56 [email or web address] 24.8 % (missing) CARBON DIOXIDE - CO2 2025-07-10:56 [email or web address] 27 mmol/l As of February 2023 testing method has changed, this may include reference ranges. MEAN CORPUSCULAR HGB CONC 2025-07-10 22:56 [email or web address] 33.9 g/dl (missing) MEAN CORPUSCULAR HEMOGLOBIN 2025-07-10 22:56 [email or web address] 34.7 pg (missing) ALKALINE PHOSPHATASE 2025-07-10 22:56 [email or web address] 39 iu/l As of February 2023 testing method has changed, this may include reference ranges. ANION GAP 2025-07-10:56 Smart Plate 4.0 (missing) (missing) POTASSIUM 2025-07-10 22:56 [email or web address] 4.0 mmol/l As of February 2023 testing method has changed, this may include reference ranges. WHITE BLOOD COUNT 2025-07-10 22:56 Smart Plate 4.0 x10 3/ul (missing) ALBUMIN 2025-07-10 22:56 Smart Plate 4.3 g/dl As of February 2023 testing method has changed, this may include reference ranges. TOTAL PROTEIN 2025-07-10 22:56 Smart Plate 6.2 g/dl As of February 2023 testing method has changed, this may include reference ranges. HGB - HEMOGLOBIN 2025-07-10 22:56 Smart Plate 8.4 g/dl (missing) GFR - MDRD 2025-07-10 22:56 Smart Plate 81 (missing) The IDMS-traceable MDRD Study Equation [...] updated October 2011. MEAN PLATELET VOLUME 2025-07-10 22:56 Smart Plate 9.1 fl (missing) CALCIUM 2025-07-10 22:56 Smart Plate 9.3 mg/dl As of February 2023 testing method has changed, this may include reference ranges. Social History date description facility
[2025-07-11] MEDS ORDERED: PANTOPRAZOLE 40 MG VIAL ONE (00:01)
--- NOTE | 2025-07-11 00:06 | HISTORY & PHYSICAL EXAMINATION ---
Chief Complaint Chief Complaint Chief Complaint: Melena History of Present Illness History of Present Illness HPI Comment/Other: 80 Y old male with PMH HTN, hyperlipidemia, CAD s/p PCI and stents, GERD, osteoarthritis came due dark colored stool since Saturday. C/O mild abdominal discomfort. Denies hematemesis, dizziness, syncoope, BERGERON, chest pain, SOB, symptoms. Labs showed Hb 8.4 Per ER physician, He consulted with surgeon hotel concierge ( Dr Mitchell) who recommneded admission and EGD on Saturday. In ER, iv protonix was ordered Pt is admitted due to melena, GI bleeding and acute blood loss anemia Review of Systems Status of ROS: 10 or more systems reviewed and unremarkable except as noted in history and below PFSH Active Problems All Active Problems (Updated 07/10/25 @ 23:23 by Reza Nicole MD) Acute anemia (Acute) Melena (Acute) Alcohol use (Acute) Melena (Acute) Visit for suture removal (Acute) Piriformis syndrome of left side (Acute) Osteoarthritis (Acute) Impaired fasting glucose (Acute) GERD (gastroesophageal reflux disease) (Acute) Benign essential hypertension (Acute) Hyperlipidemia (Acute) CAD (coronary artery disease) (Acute) Tinnitus (Acute) Allergic rhinitis (Acute) Erectile dysfunction (Acute) Depression (Acute) Eczema (Acute) Degenerative joint disease of knee, right (Acute) Degenerative joint disease of knee, left (Acute) Bee sting allergy (Acute) BPH (benign prostatic hyperplasia) (Acute) Medical History Medical History (Updated 07/10/25 @ 23:23 by Reza Nicole MD) Screening for prostate cancer Displaced fracture of olecranon process without intraarticular extension of left ulna, initial encounter for closed fracture Atypical chest pain GERD (gastroesophageal reflux disease) Hypertension Surgical History Surgical History (Updated 11/13/24 @ 07:41 by Caitlin Cunha LPN) S/P coronary artery stent placement x2 History of back surgery S/P appendectomy Family History Family History (Updated 11/13/24 @ 07:40 by Caitlin Cunha LPN) Other Adopted Family history unknown Social History Social History Smoking Status: Former smoker If you are a former smoker, when did you quit? (Date/Year): 1970 Number of Years Smoked: 3 Do you dip or chew tobacco?: No Do you vape?: No Do you feel safe in your home environment?: Yes History of physical, verbal, emotional, or financial abuse?: No ETOH Use: Wine and Beer Frequency: Weekly Substance Use: denies use POLST Patient has POLST: No Meds/Allgy Home Medications Ambulatory Orders Medication Instructions Recorded Confirmed cejeowqbhprh-[id number] 1 ea PO DAILY 07/31/1312/27 fumarate 19 mg-folic acid 400 mcg tablet (Therapeutic-M) aspirin 81 mg tablet,delayed 81 mg PO QDAY 10/27/24 release (Adult Aspirin Regimen) cholecalciferol (vitamin D3) 25 25 mcg PO QDAY 5 07/09/25 mcg (1,000 unit) tablet clobetasol 0.05 % topical ointment 1 applic topical DIRECTED 10/27/24 07/09/25 coenzyme Q10 150 mg capsule 150 mg PO QDAY 10/27/24 dorzolamide 22.3 mg-timolol 6.8 1 drp ophthalmic (eye) DIRECTED 10/27/24 07/09/25 mg/mL eye drops epinephrine 0.3 mg/0.3 mL 0.3 mg IM DIRECTED 07/09/25 injection, auto-injector (EpiPen 2-Feliz) glucosamine 750 iz-[id number] 1 tab PO QDAY 10/2707/09/25 no1 644 mg-C 30 mg-jose enrique 1 mg tablet (Osteo Bi-Flex Triple Strength) amlodipine 5 mg tablet 5 mg PO QDAY #90 tabs 07/09/25 atorvastatin 20 mg tablet (Lipitor) 20 mg PO QPM #90 t abs 05/24/25 07/09/25 lisinopril 20 mg tablet 20 mg PO QDAY #90 tabs 05/2407/09/25 metoprolol succinate 50 mg 50 mg PO QDAY #90 tabs 05/0607/09/25 tablet,extended release 24 hr tadalafil 5 mg tablet (Cialis) 5 mg PO QDAY PRN erecti le 05/24/25 07/09/25 dysfunction #90 tabs omeprazole 20 mg capsule,delayed 20 mg PO QDAY #90 cap s 05/25/25 07/09/25 release Allergies Allergies Allergy/AdvReac Type Severity Reaction Status Date / Time ciprofloxacin Allergy Hives Verified 07/10/25 22:43 BEES Allergy Severe SWELLING Uncoded 07/10/25 22:43 AT STING SITE, LARGE SWELLING PER PT Exam Exam Vital Signs: Vital Signs x48h Temp Pulse Resp BP Pulse Ox 07/10/25 22:37 36.9 C 85 18 165/94 H 100 Constitutional normal general appearance HENMT normocephalic Eyes PERRL Chest inspection of chest normal Respiratory breath sounds equal bilaterally Cardiovascular normal heart rate noted Extremities normal to inspection Neurology no focal motor deficit noted Skin no rash Conclusion/Plan Problem List (1) Melena: Plan: A: Melena GI bleeding Acute blood loss anemia HTN Hyperlipidemia CAD s/p PCI and stents X 2 GERD Osteoarthritis Plan: Admit to ICU for closer monitoring NPO Start protonix gtt Monitor H/H. Transfuse PRBC if hb less than 7 Per ER physician, he consulted surgeon hotel concierge ( Dr Mitchell) who rec EGD on Saturday Cont metoprolol and lisinopril Cont atorvasttain Hold aspirin DVT prophylaxic: SCD. Avoid anticoagulation due to GI bleed Full code Pt is admitted as inpatient as more than 2 midnight stay is expected Lab Results 07/10/25 22:56 07/10/25 22:56
[2025-07-11] MEDS: PANTOPRAZOLE 80 MG in SODIUM CHLORIDE 0.9% 100ML 100 ML IV SCH (00:12)
[2025-07-11] MEDS: PANTOPRAZOLE 40 MG VIAL IVP STA (00:12)
[2025-07-11] MEDS ORDERED: SODIUM CHLORIDE FLUSH 0.9% 10 ML SYRINGE IVP PRN (00:24)
[2025-07-11] MEDS ORDERED: ONDANSETRON 4 MG/2 ML VIAL IVP PRN (00:24)
[2025-07-11] MEDS: SODIUM CHLORIDE 0.9% 1,000 ML IV SCH (00:51)
[2025-07-11] MEDS: SODIUM CHLORIDE FLUSH 0.9% 10 ML SYRINGE IVP SCH (00:55)
[2025-07-11 05:08] LABS: HCT - HEMATOCRIT 23.1 % (42.0-52.0); HGB - HEMOGLOBIN 7.9 g/dL (14.0-18.0); MEAN PLATELET VOLUME 8.8 fL (7.4-11.4); NRBC ABSOLUTE COUNT (AUTO) 0.00 x10^3/uL; NUCLEATED RED BLOOD CELLS AUTO 0.0 /100WBC; PLT - PLATELET COUNT 130 10^3/uL (130-450); RED CELL DISTRIBUTION WIDTH 13.8 % (12.0-15.0)
[2025-07-11 05:24] LABS: BUN - BLOOD UREA NITROGEN 18.0 mg/dL (6-20); CARBON DIOXIDE - CO2 27.0 mmol/L (21-32); CREATININE 0.9 mg/dL (0.6-1.3); GFR - MDRD 81.0 (>89)
--- NOTE | 2025-07-11 07:39 | PROVIDER PROGRESS NOTE ---
<Statement entered by Mark Farmer DNP - 07/11/25 21:00> Patient was seen and examined by me with a separate encounter after being seen by YESSICA student. I reviewed the student's documentation including patient history, physical examination, laboratory, imaging, clinical assessment and treatment plan. I have discussed the management of the patient with the student, and with the patient. There are no changes. Briefly, patient is here for GI bleed, plan for endoscopy tomorrow. H&P is from the same calendar day, so this is a nonbillable note Subjective Prog Note Date Prog Note Date: 07/11/25 Prog Note Time: 09:36 Subjective Pt reports feeling: No change Subjective: -Pt is a pleasant 80 yoM with a history of moderate alcohol use and agent orange exposure during his service in [employer], who presents with ~1 week of melenotic stools after returning from a trip to [place] and was fround to be anemic in this facility's ER. -He relates that on Saturday he first noticed quite dark stools, and by Saturday had noticed they had lightened in color slightly, and then back to quite dark by Saturday. He has not had SOA related to his anemia but has related some near- syncope without true syncope. Pt was seen at the walk in clinic on that Saturday and was referred to our facility. PT was found to be anemic yesterday, which continues today. Pt was admitted to our service for observation and on the advice of Dr. Mitchell, appropriate for EGD on Saturday. -Pt denies any recent illness, rash, new exposures, or other precipitating factors. 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 He also relates he was exposed to agent orange in [place] from -, and worked as a foreman for some time stateside, and then was in various other positions with less environmental exposures. He relates a long GERD hx, managed with omeprazole, and relates he did have a previous upper scope in 2007 but doesn't know if any results had been concerning at that time. He denies knowledge of a previous H. pylori test, and denies daily NSAID use, but relates recent increased use due to elbow and shoulder pain. Pt does use alcohol moderately, endorsing 10-12 drinks per week, with wine or beer at mealtimes. He relates hx of acute appendicitis and resultant appendectomy in 2011 at this facility, with no other abd surgeries. His last colonoscopy was 2020, and his colonoscopy schedule is currently 5-10 years. - Pt relates he is adopted and is unaware of any genetic family medical hx. ROS: No CP, SOA, syncope, NVD, recent illness, cough, fever, chills, rigor, dysuria, hematuria, CVA tenderness, AMS, night sweats, or unintentional weight loss. Current Medications Current Medications Current Medications: Current Medications Generic Name Dose Route Start Last Admin Trade Name Freq PRN Reason Stop Dose Admin Acetaminophen 650 mg 07/11/25 00:24 Acetaminophen 325 Mg Tablet PO Q4HR PRN Pain 1 to 4, or Fever Atorvastatin Calcium 20 mg 07/11/25 09:00 Atorvastatin 10 Mg Tablet PO DAILY TOSHIA Pantoprazole Sodium 80 mg/ 100 mls @ 10 mls/hr 07/10/25 23:45 07/11/25 00:54 Sodium Chloride IV 10 mls/hr .Q10H TOSHIA Infusion Sodium Chloride 1,000 mls @ 80 mls/hr 07/11/25 00:24 07/11/25 00:51 Normal Saline 0.9% IV 80 mls/hr .[id number] TOSHIA Administration Lisinopril 10 mg 07/11/25 09:00 Lisinopril 5 Mg Tablet PO DAILY TOSHIA Metoprolol Succinate 50 mg 07/11/25 09:00 Metoprolol Succinate 50 Mg Tablet PO DAILY TOSHIA Ondansetron HCl 4 mg 07/11/25 00:24 Ondansetron 4 Mg/2 Ml Vial IVP Q6HR PRN Nausea / Vomiting Sodium Chloride 10 ml 07/11/25 01:00 07/11/25 00:55 Sodium Chloride Flush 0.9% 10 Ml Syringe IVP Not Given 0100,0900,1700 TOSHIA Sodium Chloride 10 ml 07/11/25 00:24 Sodium Chloride Flush 0.9% 10 Ml Syringe IVP PRN PRN NEEDED PER PROVIDER ORDERS Objective Vital Signs/Intake & Output Reviewed Vital Signs: Yes Vital Signs: Vital Signs x48h Temp Pulse Pulse Resp BP Pulse Ox 07/11/25 00:46 36.8 C 91 16 154/81 H 99 07/11/25 00:25 70 20 97 Intake & Output: Intake & Output 07/08/25 07/09/25 07/10/25 07/11/25 23:59 23:59 23:59 23:59 Intake Total 0 / 0 Balance 0 / 0 Weight (kg) 79.379 kg 78 kg Objective General Appearance: positive No acute distress and Alert Eyes Bilateral: positive Normal inspection Neck: positive Nml inspection Respiratory: positive Chest non-tender, No respiratory distress and Breath sounds nml Cardiovascular: positive Regular rate & rhythm, No murmur and No gallop Abdomen: positive Non-tender, Nml bowel sounds and No distention Skin: positive Color nml, Warm and Dry Extremities: positive Non-tender and No pedal edema Neurologic/Psychiatric: positive Oriented x3 Lab Results 07/11/25 05:01 07/11/25 05:01 Other Labs: Lab Results x24hrs 07/11/25 07/10/25 Range/Units 05:01 22:56 WBC 3.1 L 4.0 L (4.8-10.8) x10^3/uL RBC 2.27 L 2.42 L (4.70-6.10) 10^6/uL Hgb 7.9 L 8.4 L (14.0-18.0) g/dL Hct 23.1 L 24.8 L (42.0-52.0) % MCV 101.8 H 102.5 H (80.0-94.0) fL MCH 34.8 H 34.7 H (27.0-31.0) pg MCHC 34.2 33.9 (32.0-36.0) g/dL RDW 13.8 13.8 (12.0-15.0) % Plt Count 130 154 (130-450) 10^3/uL MPV 8.8 9.1 (7.4-11.4) fL Neut # (Auto) 1.5 2.2 (1.5-6.6) 10^3/uL Lymph # (Auto) 1.2 L 1.2 L (1.5-3.5) 10^3/uL [place] # (Auto) 0.3 0.4 (0.0-1.0) 10^3/uL Eos # (Auto) 0.1 0.1 (0.0-0.7) 10^3/uL Baso # (Auto) 0.0 0.0 (0.0-0.1) 10^3/uL Absolute Nucleated RBC 0.00 0.00 x10^3/uL Nucleated RBC % 0.0 0.0 /100WBC PT 11.5 (9.9-12.6) secs INR 1.0 (0.8-1.2) APTT 21.9 L (24.9-33.3) secs Sodium 140 136 (135-145) mmol/L Potassium 4.5 4.0 (3.5-4.5) mmol/L Chloride 110 105 (101-111) mmol/L Carbon Dioxide 27 27 (21-32) mmol/L Anion Gap 3.0 L 4.0 L (6-13) BUN 18 22 H (6-20) mg/dL Creatinine 0.9 0.9 (0.6-1.3) mg/dL Estimated GFR (MDRD) 81 L 81 L (>89) Glucose 106 H 102 (74-104) mg/dL Calcium 8.8 9.3 (8.5-10.3) mg/dL Total Bilirubin 0.5 (0.2-1.0) mg/dL AST 21 (10-42) IU/L ALT 24 (10-60) IU/L Alkaline Phosphatase 39 L (42-121) IU/L Total Protein 6.2 L (6.4-8.9) g/dL Albumin 4.3 (3.2-5.5) g/dL Globulin 1.9 L (2.1-4.2) g/dL Albumin/Globulin Ratio 2.3 H (1.0-2.2) Blood Type A POSITIVE Blood Type Recheck A POSITIVE Antibody Screen NEGATIVE Assessment/Plan Problem List (1) Melena: (2) Acute anemia: Impression: Description is for Problems 1 and 2 Condition: Pt has melenotic stools ongoing for ~1 week, and acute anemia likely related to this upper GI bleed. Pt was admitted for obs and for an EGD Saturday per Dr. Mitchell's recommendation. -Pt Hgb currently 7.9, and will consider transfusion protocl if it drops below 7. Will order type and cross. -Will consider ordering haptoglobin, lactate dehydrogenase, KIRAN and IAT if workup indicates possible hemolytic processes. -Will consider orders for iron repletion today as well. -Hgb 7.9, Hct 23.1, MCV 101.8, MCH 34.8, Plt 130, APTT 21.9, and lates bilirubin 0.5 Assistance: anemia monitoring, diagnostic imaging, surgery consult, blood products Risk: continued bleeding, worsened anemia, progression to yasmine shock, . Expected LOS: ~2-3 days Monitor: Continue to monitor VS trending for progression to yasmine shock, CBC/CMP, and any s/s consistent with low perfusion state. Evaluate: Continue to evaluate for transfusion criteria or worsening clinical findings. Assess/add: Type and cross, monitor course Treat: Consider blood products, iron repletion. (3) GERD (gastroesophageal reflux disease): Impression: Pt relates longstanding hx of GERD, managing with Omeprazole. Pt was initially put on Protonix drip, but transferring to IVP today, 40mg 2x/day. Pt also related he has been using more NSAID than normal secondary to bilateral elbow and shoulder pain, but denies daily or high dose usage. PT denies any current GERD symptoms today, or any epigastric pain on palpation. Qualifiers: Esophagitis presence: esophagitis presence not specified Qualified Code(s): K21.9 - Gastro-esophageal reflux disease without esophagitis (4) Alcohol use: Impression: Pt relates 10-12 alcoholic beverages per week, usually with meals, and no specific binging patterns. Pt denies any vomiting or retching recently. (5) Hypertension: Impression: Pt relates longstanding HTN history, managed medically. Pt relates he believes his outpt care provider may be modifying this dose. Pt BP has been transiently high during his stay, highest systolic was 165. we are continuing his home medication dosages of Metoprolol Succinate 50mg PO/day, Lisinopril 10 mg PO/day, with a current BP of 124 systolic. Still consider his home Amlodipine if pressures trend high once more, but given current stability and volume-down status, holding for now.
[2025-07-11] MEDS: METOPROLOL SUCCINATE 50 MG TABLET PO SCH (08:32)
[2025-07-11] MEDS: ATORVASTATIN 10 MG TABLET PO SCH (08:32)
[2025-07-11] MEDS: ACETAMINOPHEN 325 MG TABLET PO PRN (08:32)
[2025-07-11 10:40] LABS: HCT - HEMATOCRIT 24.2 % (42.0-52.0); HGB - HEMOGLOBIN 8.3 g/dL (14.0-18.0)
--- OUTSIDE RECORDS SUMMARY | 2025-07-11 16:22 | EXTERNAL MEDICAL SUMMARY RPT | Clinical Summary ---
Author Organization [facility] lin Address [address] [place] [address] Care Team Providers Care Bridge Manager Name Role Phone Unavailable Primary Care Provider Unavailabl e Social History Tobacco Use Types Packs/Day Years Used Date Smoking Tobacco: Never Assessed Sex and Gender Information Value Date Recorded Sex Assigned at Not on file Legal Sex Male 6:59 PM EST Gender Identity Not on file Sexual Orientation Not on file Plan of Treatment Not on file Medical Devices Not on file
[2025-07-11] MEDS: PEG 3350/NA SULF,BICARB,CL/KCL 4,000 ML BOTTLE PO ONE (17:48)
[2025-07-11 19:55] LABS: HCT - HEMATOCRIT 24.7 % (42.0-52.0); HGB - HEMOGLOBIN 8.4 g/dL (14.0-18.0)
[2025-07-11] MEDS: PANTOPRAZOLE 40 MG VIAL IVP SCH (21:08)
[2025-07-12 02:43] LABS: HCT - HEMATOCRIT 22.8 % (42.0-52.0); HGB - HEMOGLOBIN 7.8 g/dL (14.0-18.0); MEAN PLATELET VOLUME 8.8 fL (7.4-11.4); NRBC ABSOLUTE COUNT (AUTO) 0.00 x10^3/uL; NUCLEATED RED BLOOD CELLS AUTO 0.0 /100WBC; PLT - PLATELET COUNT 131 10^3/uL (130-450); RED CELL DISTRIBUTION WIDTH 14.1 % (12.0-15.0)
[2025-07-12 03:03] LABS: BUN - BLOOD UREA NITROGEN 11.0 mg/dL (6-20); CARBON DIOXIDE - CO2 26.0 mmol/L (21-32); CREATININE 0.8 mg/dL (0.6-1.3); GFR - MDRD 93.0 (>89)
--- NOTE | 2025-07-12 08:27 | PROVIDER PROGRESS NOTE ---
<Statement entered by Mark Farmer DNP - 07/12/25 19:31> Patient was seen and examined by me with a separate encounter after being seen by YESSICA student. I reviewed the student's documentation including patient history, physical examination, laboratory, imaging, clinical assessment and treatment plan. I have discussed the management of the patient with the student, and with the patient. There are no changes. Patient discharge, see discharge summary Subjective Prog Note Date Prog Note Date: 07/12/25 Prog Note Time: 12:48 Subjective Pt reports feeling: Improved and No change Subjective: Pt relates he that he has no s/s of yasmine shock, denying tachycardia, diaphoresis, dyspnea, near syncope, or any other positive ROS s/s. Pt does relate some minor RLQ pain, 2-3/10 and only slightly reproducible with palpation. Christensen, psoas, Rovsing all negative. Pt denies any other s/s today, and relates he has not been enjoying the bowel procedure preparations. Pt wanted to know when the procedure would be today and PA student went and spoke to the OR staff, who related the procedure would likely be this afternoon. Current Medications Current Medications Current Medications: Current Medications Generic Name Dose Route Start Last Admin Trade Name Freq PRN Reason Stop Dose Admin Acetaminophen 650 mg 07/11/25 00:24 07/11/25 15:30 Acetaminophen 325 Mg Tablet PO 650 mg Q4HR PRN Administration Pain 1 to 4, or Fever Atorvastatin Calcium 20 mg 07/11/25 09:00 07/11/25 08:32 Atorvastatin 10 Mg Tablet PO 20 mg DAILY TOSHIA Administration Sodium Chloride 1,000 mls @ 80 mls/hr 07/11/25 00:24 07/12/25 01:51 Normal Saline 0.9% IV 80 mls/hr .[id number] TOSHIA Administration Lisinopril 10 mg 07/11/25 09:00 07/11/25 08:32 Lisinopril 5 Mg Tablet PO 10 mg DAILY TOSHIA Administration Metoprolol Succinate 50 mg 07/11/25 09:00 07/11/25 08:32 Metoprolol Succinate 50 Mg Tablet PO 50 mg DAILY TOSHIA Administration Ondansetron HCl 4 mg 07/11/25 00:24 Ondansetron 4 Mg/2 Ml Vial IVP Q6HR PRN Nausea / Vomiting Pantoprazole Sodium 40 mg 07/11/25 21:00 07/11/25 21:08 Pantoprazole 40 Mg Vial IVP 40 mg BID TOSHIA Administration Sodium Chloride 10 ml 07/11/25 01:00 07/11/25 23:23 Sodium Chloride Flush 0.9% 10 Ml Syringe IVP Not Given 0100,0900,1700 TOSHIA Sodium Chloride 10 ml 07/11/25 00:24 Sodium Chloride Flush 0.9% 10 Ml Syringe IVP PRN PRN NEEDED PER PROVIDER ORDERS Objective Vital Signs/Intake & Output Reviewed Vital Signs: Yes Vital Signs: Vital Signs x48h Temp Pulse Resp BP Pulse Ox 07/12/25 08:04 36.5 C 82 18 120/71 99 Intake & Output: Intake & Output 07/09/25 07/10/25 07/11/25 07/12/25 23:59 23:59 23:59 23:59 Intake Total 2136 1000 / 1000 Balance 2136 1000 / 1000 Weight (kg) 79.379 kg 78 kg 78 kg Objective General Appearance: positive No acute distress and Alert Eyes Bilateral: positive Normal inspection Neck: positive Nml inspection Respiratory: positive Chest non-tender, No respiratory distress and Breath sounds nml Cardiovascular: positive Regular rate & rhythm Abdomen: positive Nml bowel sounds and No distention; negative Non-tender (RLQ pain, 2-3/10 in palp) Skin: positive Color nml, No rash, Warm and Dry Extremities: positive Non-tender and No pedal edema Neurologic/Psychiatric: positive Oriented x3 Lab Results 07/12/25 10:16 07/12/25 02:37 Other Labs: Lab Results x24hrs 07/12/25 07/11/25 07/11/25 Range/Units 02:37 19:50 10:35 WBC 3.1 L (4.8-10.8) x10^3/uL RBC 2.23 L (4.70-6.10) 10^6/uL Hgb 7.8 L 8.4 L 8.3 L (14.0-18.0) g/dL Hct 22.8 L 24.7 L 24.2 L (42.0-52.0) % MCV 102.2 H (80.0-94.0) fL MCH 35.0 H (27.0-31.0) pg MCHC 34.2 (32.0-36.0) g/dL RDW 14.1 (12.0-15.0) % Plt Count 131 (130-450) 10^3/uL MPV 8.8 (7.4-11.4) fL Neut # (Auto) 1.6 (1.5-6.6) 10^3/uL Lymph # (Auto) 1.0 L (1.5-3.5) 10^3/uL [place] # (Auto) 0.3 (0.0-1.0) 10^3/uL Eos # (Auto) 0.1 (0.0-0.7) 10^3/uL Baso # (Auto) 0.0 (0.0-0.1) 10^3/uL Absolute Nucleated RBC 0.00 x10^3/uL Nucleated RBC % 0.0 /100WBC Sodium 142 (135-145) mmol/L Potassium 3.9 (3.5-4.5) mmol/L Chloride 110 (101-111) mmol/L Carbon Dioxide 26 (21-32) mmol/L Anion Gap 6.0 (6-13) BUN 11 (6-20) mg/dL Creatinine 0.8 (0.6-1.3) mg/dL Estimated GFR (MDRD) 93 (>89) Glucose 92 (74-104) mg/dL Calcium 8.5 (8.5-10.3) mg/dL Diagnostic Imaging Diagnostic Imaging Results: positive Final report reviewed and Read independently Assessment/Plan Problem List (1) Melena: (2) Acute anemia: Impression: Description is for Problems 1 and 2 Condition: Pt has melenotic stools ongoing for ~1 week, and acute anemia likely related to this upper GI bleed. Pt was admitted for obs and for an EGD Saturday per Dr. Mitchell's recommendation. -Pt Hgb currently 7.9, and will consider transfusion protocl if it drops below 7. Will order type and cross. -Will consider ordering haptoglobin, lactate dehydrogenase, KIRAN and IAT if workup indicates possible hemolytic processes. -Will consider orders for iron repletion today as well. -Hgb 9.9, Hct 26.4. Assistance: anemia monitoring, diagnostic imaging, surgery consult, blood products Risk: continued bleeding, worsened anemia, progression to yasmine shock, . Expected LOS: ~2-3 days Monitor: Continue to monitor VS trending for progression to yasmine shock, CBC/CMP, and any s/s consistent with low perfusion state. Evaluate: Continue to evaluate for transfusion criteria or worsening clinical findings. Assess/add: Type and cross, monitor course Treat: Consider blood products, iron repletion. (3) GERD (gastroesophageal reflux disease): Impression: Pt relates longstanding hx of GERD, managing with Omeprazole. Pt was initially put on Protonix drip, but transferring to IVP today, 40mg 2x/day. Pt also related he has been using more NSAID than normal secondary to bilateral elbow and shoulder pain, but denies daily or high dose usage. PT denies any current GERD symptoms today, or any epigastric pain on palpation. Qualifiers: Esophagitis presence: esophagitis presence not specified Qualified Code(s): K21.9 - Gastro-esophageal reflux disease without esophagitis (4) Alcohol use: Impression: Pt relates 10-12 alcoholic beverages per week, usually with meals, and no specific binging patterns. Pt denies any vomiting or retching recently. (5) Hypertension: Impression: Pt relates longstanding HTN history, managed medically. Pt relates he believes his outpt care provider may be modifying this dose. Pt BP has been transiently high during his stay, highest systolic was 165. we are continuing his home medication dosages of Metoprolol Succinate 50mg PO/day, Lisinopril 10 mg PO/day, with a current BP of 124 systolic. Still consider his home Amlodipine if pressures trend high once more, but given current stability and volume-down status, holding for now. Qualifiers: Hypertension type: unspecified Qualified Code(s): I10 - Essential (primary) hypertension
[2025-07-12 10:22] LABS: HCT - HEMATOCRIT 26.4 % (42.0-52.0); HGB - HEMOGLOBIN 8.9 g/dL (14.0-18.0)
--- NOTE | 2025-07-12 12:03 | ANESTHESIA PROCEDURE NOTE ---
Pre-Anesthesia VS, & Labs Diagnosis Surgical Diagnosis:: anemia Procedure Procedure: EGD/Colonoscopy Vitals Vital Signs: Temp Pulse Resp BP Pulse Ox 36.5 C 82 18 120/71 99 07/12/25 08:04 07/12/25 08:04 07/12/25 08:04 07/12/25 08:04 07/12/25 08:04 NPO NPO: >8 hours and Other (am prep) Lab Results Current Lab Results: Laboratory Tests 07/12/25 10:16: Hgb 8.9 L, Hct 26.4 L 07/12/25 02:37: WBC 3.1 L, RBC 2.23 L, Hgb 7.8 L, Hct 22.8 L, MCV 102.2 H, MCH 35.0 H, MCHC 34.2, RDW 14.1, Plt Count 131, MPV 8.8, Neut # (Auto) 1.6, Lymph # (Auto) 1.0 L, [place] # (Auto) 0.3, Eos # (Auto) 0.1, Baso # (Auto) 0.0, Absolute Nucleated RBC 0.00, Nucleated RBC % 0.0, Sodium 142, Potassium 3.9, Chloride 110, Carbon Dioxide 26, Anion Gap 6.0, BUN 11, Creatinine 0.8, Estimated GFR (MDRD) 93, Glucose 92, Calcium 8.5 07/11/25 19:50: Hgb 8.4 L, Hct 24.7 L 07/11/25 10:35: Hgb 8.3 L, Hct 24.2 L 07/11/25 05:01: WBC 3.1 L, RBC 2.27 L, Hgb 7.9 L, Hct 23.1 L, MCV 101.8 H, MCH 34.8 H, MCHC 34.2, RDW 13.8, Plt Count 130, MPV 8.8, Neut # (Auto) 1.5, Lymph # (Auto) 1.2 L, [place] # (Auto) 0.3, Eos # (Auto) 0.1, Baso # (Auto) 0.0, Absolute Nucleated RBC 0.00, Nucleated RBC % 0.0, Sodium 140, Potassium 4.5, Chloride 110, Carbon Dioxide 27, Anion Gap 3.0 L, BUN 18, Creatinine 0.9, Estimated GFR (MDRD) 81 L, Glucose 106 H, Calcium 8.8, Blood Type Recheck A POSITIVE 07/10/25 22:56: WBC 4.0 L, RBC 2.42 L, Hgb 8.4 L, Hct 24.8 L, MCV 102.5 H, MCH 34.7 H, MCHC 33.9, RDW 13.8, Plt Count 154, MPV 9.1, Neut # (Auto) 2.2, Lymph # (Auto) 1.2 L, [place] # (Auto) 0.4, Eos # (Auto) 0.1, Baso # (Auto) 0.0, Absolute Nucleated RBC 0.00, Nucleated RBC % 0.0, PT 11.5, INR 1.0, APTT 21.9 L, Sodium 136, Potassium 4.0, Chloride 105, Carbon Dioxide 27, Anion Gap 4.0 L, BUN 22 H, Creatinine 0.9, Estimated GFR (MDRD) 81 L, Glucose 102, Calcium 9.3, Total Bilirubin 0.5, AST 21, ALT 24, Alkaline Phosphatase 39 L, Total Protein 6.2 L, Albumin 4.3, Globulin 1.9 L, Albumin/Globulin Ratio 2.3 H, Blood Type A POSITIVE, Antibody Screen NEGATIVE Lab results reviewed: Yes 07/12/25 10:16 07/12/25 02:37 Meds/Allgy Home Medications Ambulatory Orders Medication Instructions Recorded Confirmed [id number] 1 ea PO DAILY 07/31/1302/26 fumarate 19 mg-folic acid 400 mcg tablet (Therapeutic-M) aspirin 81 mg tablet,delayed 81 mg PO DAILY 10/27/24 1 09/11/24 release (Adult Aspirin Regimen) cholecalciferol (vitamin D3) 25 25 mcg PO QDAY 07/11/25 mcg (1,000 unit) tablet clobetasol 0.05 % topical ointment 1 applic topical BI D PRN rash 10/27/24 07/11/25 coenzyme Q10 150 mg capsule 150 mg PO DAILY 10/27/24 1 09/11/24 epinephrine 0.3 mg/0.3 mL 0.3 mg IM DIRECTED 07/11/25 injection, auto-injector (EpiPen 2-Feliz) glucosamine 750 bp-nyagocucryt-beq 1 tab PO DAILY 10/0407/11/25 no1 644 mg-C 30 mg-jose enrique 1 mg tablet (Osteo Bi-Flex Triple Strength) atorvastatin 20 mg tablet (Lipitor) 20 mg PO QPM #90 t abs 05/24/25 07/11/25 tadalafil 5 mg tablet (Cialis) 5 mg PO QDAY PRN erecti le 05/24/25 07/11/25 dysfunction #90 tabs amlodipine 5 mg tablet 5 mg PO DAILY 07/11/2507/11 carboxymethylcellulose sodium 1 % 1 drp ophthalmic (ey e) TID PRN dry 07/11/25 07/11/25 eye liquid gel drops (Refresh eye(s) Liquigel) lisinopril 20 mg tablet 20 mg PO DAILY 07/11/2502/26 metoprolol succinate 50 mg 50 mg PO DAILY 07/11/2502/26 tablet,extended release 24 hr omega 4-qwk-aca-fish oil 1,000 mg 1 cap PO DAILY 07/1107/11/25 (120 mg-180 mg) capsule (Fish Oil) omeprazole 20 mg capsule,delayed 20 mg PO QDAC 5 07/11/25 release Allergies Allergies Allergy/AdvReac Type Severity Reaction Status Date / Time ciprofloxacin Allergy Hives Verified 07/10/25 22:43 BEES Allergy Severe SWELLING Uncoded 07/10/25 22:43 AT STING SITE, LARGE SWELLING PER PT PFSH Active Problems All Active Problems (Updated 07/12/25 @ 08:29 by Bonifacio Alexis) Acute anemia (Acute) Melena (Acute) Alcohol use (Acute) Melena (Acute) Visit for suture removal (Acute) Piriformis syndrome of left side (Acute) Osteoarthritis (Acute) Impaired fasting glucose (Acute) GERD (gastroesophageal reflux disease) (Acute) Benign essential hypertension (Acute) Hyperlipidemia (Acute) CAD (coronary artery disease) (Acute) Tinnitus (Acute) Allergic rhinitis (Acute) Erectile dysfunction (Acute) Depression (Acute) Eczema (Acute) Degenerative joint disease of knee, right (Acute) Degenerative joint disease of knee, left (Acute) Bee sting allergy (Acute) BPH (benign prostatic hyperplasia) (Acute) Medical History Medical History (Updated 07/12/25 @ 08:29 by Bonifacio Alexis) Carpal tunnel syndrome on both sides Screening for prostate cancer Displaced fracture of olecranon process without intraarticular extension of left ulna, initial encounter for closed fracture Atypical chest pain GERD (gastroesophageal reflux disease) Hypertension Surgical History Surgical History (Updated 11/13/24 @ 07:41 by Caitlni Cunha LPN) S/P coronary artery stent placement x2 History of back surgery S/P appendectomy Family History Family History (Updated 11/13/24 @ 07:40 by Caitlin Cunha LPN) Other Adopted Family history unknown Social History Social History Smoking Status: Former smoker If you are a former smoker, when did you quit? (Date/Year): 1971 Number of Years Smoked: 3 Second hand tobacco smoke exposure: No Do you dip or chew tobacco?: No Do you vape?: No Level: Independent Do you feel safe in your home environment?: Yes History of physical, verbal, emotional, or financial abuse?: No ETOH Use: Wine and Beer Frequency: Weekly Substance Use: denies use POLST Patient has POLST: No Anesthesia Exam (Expanded) Exam General: Alert, Oriented x3 and Cooperative Dental: WNL Mouth Openin Fingerbreadth Neck Mobility: Normal Mallampati classification: II Thyromental Distance: 4-6 cm Respiratory: Lungs clear and Normal breath sounds Cardiovascular: Regular rate Neurological: Normal speech Mental/Cognitive Status: Alert/Oriented X3 and Normal for patient Cognitive Status: Within normal limits Exam Exam Vital Signs: Vital Signs x48h Temp Pulse Resp BP Pulse Ox 07/12/25 08:04 36.5 C 82 18 120/71 99 Plan Problem List (1) Melena: Plan: A: Melena GI bleeding Acute blood loss anemia HTN Hyperlipidemia CAD s/p PCI and stents X 2 GERD Osteoarthritis Plan: Admit to ICU for closer monitoring NPO Start protonix gtt Monitor H/H. Transfuse PRBC if hb less than 7 Per ER physician, he consulted surgeon telephone operators supervisor ( Dr Mitchell) who rec EGD on Saturday Cont metoprolol and lisinopril Cont atorvasttain Hold aspirin DVT prophylaxic: SCD. Avoid anticoagulation due to GI bleed Full code Pt is admitted as inpatient as more than 2 midnight stay is expected (2) Acute anemia: (3) GERD (gastroesophageal reflux disease): Qualifiers: Esophagitis presence: esophagitis presence not specified Qualified Code(s): K21.9 - Gastro-esophageal reflux disease without esophagitis (4) Alcohol use: (5) Hypertension: Qualifiers: Hypertension type: unspecified Qualified Code(s): I10 - Essential (primary) hypertension Plan Anesthesia Type: Total IV Consent for Procedure(s) Verified and Reviewed: Yes Code Status: Attempt Resuscitation ASA Classification ASA classification: 3-Severe systemic disease Is this case an emergency?: No
[2025-07-12] MEDS ORDERED: LIDOCAINE-MPF 2% 5 ML VIAL ONE ×2 (13:15→13:58)
[2025-07-12] MEDS ORDERED: PROPOFOL 500 MG/50 ML 500 MG/50 ML VIAL ONE (13:15)
--- NOTE | 2025-07-12 13:51 | CONSULTATION NOTE ---
Referring Provider Name of Referring Provider:: Dr. Reza Nicole Consult Date: 07/10/25 Chief Complaint Chief Complaint Chief Complaint: Anemia, macrocytic History of Present Illness Admitted From Admitted From:: Home History Obtained From Records Reviewed: Yes History obtained from: Patient and chart Exam Limitations: None History of Present Illness HPI Comment/Other: Patient is an exceedingly pleasant 80-year-old male who is evaluated in room 2202 at [facility]'s [facility] unit. Dr. Nicole documented a conversation with Dr. Irina Mitchell on the stating that Dr. Mitchell thought it would be appropriate for the patient to be admitted to the hospital under the care of of our hospitalist colleagues in order to await the opening of the operating rooms (which were closed over the weekend for repairs) on Saturday for an upper and lower scope. The patient denies any nausea, vomiting, melena, hematochezia, hematemesis. He denies any weight loss. Importantly has had a colonoscopy in August 12, [address] Messer showing mostly left-sided diverticular disease and a grossly normal right colon and terminal ileum. Biopsies done of the terminal ileum, cecum, ascending colon, and descending colon were all normal. The last time the patient's stool was checked for blood was in 2019. Of note he has had leukocytopenia since 2012 and had been followed by Dr. Terry Milian (oncology). He has also had cardiac stents placed I believe in 2013. He is on a daily aspirin but not on any blood thinners. He does take iron supplementation which accounts for his dark stools. He recently had a very good time in [place] and admits that he may have overindulged. He normally drinks 2 glasses of wine per day 1 at noon and 1 in the evening. He is also a big fan of black licorice and a quite a bit of it while in [place]. Please note I agreed to see the patient as both Dr. Irina Mitchell and Dr. Nico Vega are in clinic today and by my seeing the patient he would have his scopes done sooner than waiting till the end of the day. PFSH Active Problems All Active Problems (Updated 07/12/25 @ 13:59 by Darwin Uribe MD) Anemia, macrocytic (Acute) Acute anemia (Acute) Alcohol use (Acute) Visit for suture removal (Acute) Piriformis syndrome of left side (Acute) Osteoarthritis (Acute) Impaired fasting glucose (Acute) GERD (gastroesophageal reflux disease) (Acute) Benign essential hypertension (Acute) Hyperlipidemia (Acute) CAD (coronary artery disease) (Acute) Tinnitus (Acute) Allergic rhinitis (Acute) Erectile dysfunction (Acute) Depression (Acute) Eczema (Acute) Degenerative joint disease of knee, right (Acute) Degenerative joint disease of knee, left (Acute) Bee sting allergy (Acute) BPH (benign prostatic hyperplasia) (Acute) Medical History Medical History (Updated 07/12/25 @ 13:59 by Darwin Uribe MD) Carpal tunnel syndrome on both sides Screening for prostate cancer Displaced fracture of olecranon process without intraarticular extension of left ulna, initial encounter for closed fracture Atypical chest pain GERD (gastroesophageal reflux disease) Hypertension Surgical History Surgical History (Updated 11/13/24 @ 07:41 by Caitlin Cunha LPN) S/P coronary artery stent placement x2 History of back surgery S/P appendectomy Family History Family History (Updated 11/13/24 @ 07:40 by Caitlin Cunha LPN) Other Adopted Family history unknown Social History Social History Smoking Status: Former smoker If you are a former smoker, when did you quit? (Date/Year): 1971 Number of Years Smoked: 3 Second hand tobacco smoke exposure: No Do you dip or chew tobacco?: No Do you vape?: No Level: Independent Do you feel safe in your home environment?: Yes History of physical, verbal, emotional, or financial abuse?: No ETOH Use: Wine and Beer Frequency: Weekly Substance Use: denies use POLST Patient has POLST: No Meds/Allgy Home Medications Ambulatory Orders Medication Instructions Recorded Confirmed gavtrybhxjyc-ikhmpxwu-rgyh 1 ea PO DAILY 07/31/1302/26 fumarate 19 mg-folic acid 400 mcg tablet (Therapeutic-M) aspirin 81 mg tablet,delayed 81 mg PO DAILY 10/27/24 1 09/11/24 release (Adult Aspirin Regimen) cholecalciferol (vitamin D3) 25 25 mcg PO QDAY 5 07/11/25 mcg (1,000 unit) tablet clobetasol 0.05 % topical ointment 1 applic topical BI D PRN rash 10/27/24 07/11/25 coenzyme Q10 150 mg capsule 150 mg PO DAILY 10/27/24 1 09/11/24 epinephrine 0.3 mg/0.3 mL 0.3 mg IM DIRECTED 07/11/25 injection, auto-injector (EpiPen 2-Feliz) glucosamine 750 et-wqhkxclkdcg-nxo 1 tab PO DAILY 10/0407/11/25 no1 644 mg-C 30 mg-jose enrique 1 mg tablet (Osteo Bi-Flex Triple Strength) atorvastatin 20 mg tablet (Lipitor) 20 mg PO QPM #90 t abs 05/24/25 07/11/25 tadalafil 5 mg tablet (Cialis) 5 mg PO QDAY PRN erecti le 05/24/25 07/11/25 dysfunction #90 tabs amlodipine 5 mg tablet 5 mg PO DAILY 07/11/2507/11 carboxymethylcellulose sodium 1 % 1 drp ophthalmic (ey e) TID PRN dry 07/11/25 07/11/25 eye liquid gel drops (Refresh eye(s) Liquigel) lisinopril 20 mg tablet 20 mg PO DAILY 07/11/2502/26 metoprolol succinate 50 mg 50 mg PO DAILY 07/11/2502/26 tablet,extended release 24 hr omega 4-qsi-vrl-fish oil 1,000 mg 1 cap PO DAILY 07/1107/11/25 (120 mg-180 mg) capsule (Fish Oil) omeprazole 20 mg capsule,delayed 20 mg PO QDAC 5 07/11/25 release Allergies Allergies Allergy/AdvReac Type Severity Reaction Status Date / Time ciprofloxacin Allergy Hives Verified 07/10/25 22:43 BEES Allergy Severe SWELLING Uncoded 07/10/25 22:43 AT STING SITE, LARGE SWELLING PER PT Results Lab Results Lab results reviewed: Yes 07/12/25 10:16 07/12/25 02:37 Other Lab Results: Lab Results x24hrs 07/12/25 07/12/25 07/11/25 Range/Units 10:16 02:37 19:50 WBC 3.1 L (4.8-10.8) x10^3/uL RBC 2.23 L (4.70-6.10) 10^6/uL Hgb 8.9 L 7.8 L 8.4 L (14.0-18.0) g/dL Hct 26.4 L 22.8 L 24.7 L (42.0-52.0) % MCV 102.2 H (80.0-94.0) fL MCH 35.0 H (27.0-31.0) pg MCHC 34.2 (32.0-36.0) g/dL RDW 14.1 (12.0-15.0) % Plt Count 131 (130-450) 10^3/uL MPV 8.8 (7.4-11.4) fL Neut # (Auto) 1.6 (1.5-6.6) 10^3/uL Lymph # (Auto) 1.0 L (1.5-3.5) 10^3/uL [place] # (Auto) 0.3 (0.0-1.0) 10^3/uL Eos # (Auto) 0.1 (0.0-0.7) 10^3/uL Baso # (Auto) 0.0 (0.0-0.1) 10^3/uL Absolute Nucleated RBC 0.00 x10^3/uL Nucleated RBC % 0.0 /100WBC Sodium 142 (135-145) mmol/L Potassium 3.9 (3.5-4.5) mmol/L Chloride 110 (101-111) mmol/L Carbon Dioxide 26 (21-32) mmol/L Anion Gap 6.0 (6-13) BUN 11 (6-20) mg/dL Creatinine 0.8 (0.6-1.3) mg/dL Estimated GFR (MDRD) 93 (>89) Glucose 92 (74-104) mg/dL Calcium 8.5 (8.5-10.3) mg/dL Review of Systems Status of ROS: 10 or more systems reviewed and unremarkable except as noted in history and below Exam Exam Vital Signs: Vital Signs x48h Temp Pulse Resp BP Pulse Ox 07/12/25 08:04 36.5 C 82 18 120/71 99 General: 80-year old male, appears stated age, well developed, well nourished HEENT: Normocephalic, atraumatic, extraocular movement intact, mucous membranes pink and moist, sclera anicteric and not injected, tongue midline, Mallampati 2, whitish hair and mustache, male pattern baldness Neck: Supple without pain on palpation, mass or bruit Cardiac: Regular rate and rhythm without rub, gallop, or murmur Chest: Clear to auscultation bilaterally Abdomen: Soft, nontender, normoactive bowel sounds, no hepatomegaly, no splenomegaly Genitourinary: Deferred Rectal: Deferred until colonoscopy Extremities: No gross neurovascular problem, no clubbing, cyanosis or edema, mildly decreased bilateral administrative medical director strengthsymmetric Gait: I did not evaluate as I did not have the patient get out of bed Psychiatric: Alert and oriented to person place and time, asks and answers questions appropriately, mood and affect appropriate Conclusion/Plan Problem List (1) GERD (gastroesophageal reflux disease): Qualifiers: Esophagitis presence: esophagitis presence not specified Qualified Code(s): K21.9 - Gastro-esophageal reflux disease without esophagitis (2) Hypertension: Qualifiers: Hypertension type: unspecified Qualified Code(s): I10 - Essential (primary) hypertension (3) Anemia, macrocytic: Plan Esophagogastroduodenoscopy and colonoscopy with possible biopsies and/or polypectomies. Indications, procedure, alternatives (such as barium enema, Cologuard and even no procedure at all) and risks including but not limited to perforation requiring operative repair, bleeding with its risks, and were fully explained to him. Review of his history does not reveal any significant systemic disease that would contraindicate use of conscious sedation or MAC anesthesia. All questions were fully answered. Verbal and written consent has been obtained. The patient in preparation for his colonoscopy has been n.p.o. and his colon has been mechanically prepped. 35 minutes of qkhw-vc-fauh time spent with the patient, the majority of which was spent in discussion, coordination of care, and completion of the requisite paperwork CPT 68937 Lab Results Lab results reviewed: Yes 07/12/25 10:16 07/12/25 02:37
[2025-07-12] MEDS ORDERED: NALOXONE 0.4 MG/ML VIAL IVP PRN (14:44)
[2025-07-12] MEDS ORDERED: ONDANSETRON 4 MG/2 ML VIAL IVP PRN (14:44)
[2025-07-12] MEDS ORDERED: HYDROmorphone 0.5 MG/0.5 ML SYRINGE IVP PRN (14:44)
[2025-07-12] MEDS ORDERED: ePHEDrine 50 MG/ML VIAL IVP PRN (14:44)
[2025-07-12] MEDS ORDERED: ATROPINE ABBOJECT 1 MG/10 ML SYRINGE IVP PRN (14:44)
[2025-07-12] MEDS ORDERED: METOCLOPRAMIDE 10 MG/2 ML VIAL IVP PRN (14:44)
[2025-07-12] MEDS ORDERED: fentaNYL 100 MCG/2 ML VIAL IVP PRN (14:44)
[2025-07-12] MEDS ORDERED: MORPHINE 2 MG/ML CARPUJECT IVP PRN (14:44)
--- NOTE | 2025-07-12 14:56 | ANESTHESIA POST OP EVALUATION ---
Anesthesia Post Eval Post Anesthesia Eval Vitals: Last Vital Signs Temp 37 C 07/12/25 14:44 Pulse 89 07/12/25 14:50 Resp 24 07/12/25 14:50 BP 101/62 07/12/25 14:50 Pulse Ox 98 07/12/25 14:50 CV Function Including HR & BP: Stable Pain Control: Satisfactory Nausea & Vomiting: Negative Mental Status: Baseline Respiratory Status: Airway Patent Hydration Status: Satisfactory Anesthesia Complications: None
[2025-07-12] MEDS ORDERED: LACTATED RINGERS 1,000 ML IV SCH (15:00)
--- NOTE | 2025-07-12 15:41 | Discharge Summary ---
"<Statement entered by Mark Farmer DNP - 07/12/25 19:35> Patient was seen and examined by me with a separate encounter after being seen by YESSICA student. I reviewed the student's documentation including patient history, physical examination, laboratory, imaging, clinical assessment and treatment plan. I have discussed the management of the patient with the student, and with the patient. There are no changes. Briefly, patient was admitted for anemia thought to be from GI bleed. No source of bleeding was identified on EGD/colonoscopy. Unsure if this was actually a GI bleed that resolved or if he ever had a GI bleed. He does have history of anemia and leukopenia, for which she sees a shoe handler. I ran a anemia panel on him, and the results could be secondary to a correcting iron deficiency, but bone marrow pathology cannot be ruled out. He will need to address this with his shoe handler Full problem list at discharge: Melenaresolved GI bleedingno source of bleeding on scope Acute blood loss anemiahemoglobin improving Hypertensionchronic Hyperlipidemiachronic Atherosclerotic heart diseasechronic, on aspirin and statin GERDchronic Osteoarthritischronic Discharge Summary Admit Date: 07/10/25 Discharge Date: 07/12/25 Discharging Provider: Mark Farmer DNP Primary Care Provider: Rafael Osorio Code Status: Attempt Resuscitation Discharge Facility [facility]: [facility] DIAGNOSES Admission Diagnoses: Melena, Acute Anemia Discharge Diagnoses with Status of Each Condition: Melena PT admitted for dark stools suggestive of melena. Condition improved during stay, initial workup and trending labs obatined, and no bleeding source found during both EGD and colonoscopy. Acute Anemia PT admitted for anemia, above level for infusion criteria. Anemia levels have improved and have remained stable enough to discharge. HPI History of Present Illness: Pt is an 80 yoM with a history of moderate alcohol use and agent orange exposure during his service in [place], who presents with ~1 week of dark stools after returning from a trip to [employer] and was found to be anemic in this facility's ER. Lowest Hgb during care was 7.8, lowest Hct 22.8. Pt records also indicate hx of a macrocytic, leukopenic, previous anemia picture with previous workup being done by hematology. -He relates that on Saturday he first noticed quite dark stools, and by Saturday had noticed they had lightened in color slightly, and then back to quite dark by Saturday. He has not had SOA related to his anemia but has related some near- syncope without true syncope. Pt was seen at the walk in clinic on that Saturday and was referred to our facility. Pt was found to be anemic yesterday, which continues today. Pt was admitted to our service for observation and on the advice of Dr. Mitchell, appropriate for EGD on Saturday. -Pt denies any recent illness, rash, new exposures, or other precipitating factors. 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 He also relates he was exposed to agent orange in [place] from -, and worked as a foreman for some time stateside, and then was in various other positions with less environmental exposures. He relates a long GERD hx, managed with omeprazole, and relates he did have a previous upper scope in 2007 but doesn't know if any results had been concerning at that time. He denies knowledge of a previous H. pylori test, and denies daily NSAID use, but relates recent increased use due to elbow and shoulder pain. Pt does use alcohol moderately, endorsing 10-12 drinks per week, with wine or beer at mealtimes. He relates hx of acute appendicitis and resultant appendectomy in 2011 at this facility, with no other abd surgeries. His last colonoscopy was 2020, and his colonoscopy schedule is currently 5-10 years. - Pt relates he is adopted and is currently unaware of any genetic family medical hx. ROS: No CP, SOA, syncope, NVD, recent illness, cough, fever, chills, rigor, dysuria, hematuria, CVA tenderness, AMS, night sweats, or unintentional weight loss. CONSULTS | PROCEDURES Consultations: GenSurg, Radiology, ER Procedures: Diagnostic Imaging, EGD, Colonoscopy HOSPITAL COURSE Hospital Course: Pt presented to the ER with a week-long history of dark stools, concern for upper GI bleed. Pt was found to be anemic in the ER, anemia panels were performed and H/H was trended, which has trended up and remained stable. Pt remained vitally stable with no distress during the course of stay, and anemia remained stable above transfusion threshold. Scope prep was completed and EGD and Colonoscopy were performed without incident, and no acute bleeding source was appreciated. Pt remains vitally stable and will be medically cleared, and is willing to discharge and follow up with hematology and PCP for continued work up and refined care plan. ALLERGIES Allergies Allergy/AdvReac Type Severity Reaction Status Date / Time bee venom protein (honey bee) Allergy Unknown SWELLING Verified 07/12/25 14:47 AT STING SITE, LARGE SWELLING PER PT ciprofloxacin Allergy Hives Verified 07/10/25 22:43 MEDICATIONS Ambulatory Orders Medication Instructions Recorded Confirmed ztsucwfvzbpw-kukyaopa-fwog 1 ea PO DAILY 07/31/1302/26 fumarate 19 mg-folic acid 400 mcg tablet (Therapeutic-M) aspirin 81 mg tablet,delayed 81 mg PO DAILY 10/27/24 1 09/11/24 release (Adult Aspirin Regimen) cholecalciferol (vitamin D3) 25 25 mcg PO QDAY 5 07/11/25 mcg (1,000 unit) tablet clobetasol 0.05 % topical ointment 1 applic topical BI D PRN rash 10/27/24 07/11/25 coenzyme Q10 150 mg capsule 150 mg PO DAILY 10/27/24 1 09/11/24 epinephrine 0.3 mg/0.3 mL 0.3 mg IM DIRECTED 07/11/25 injection, auto-injector (EpiPen 2-Feliz) glucosamine 750 ey-ffevzrjxwfr-bbd 1 tab PO DAILY 10/0407/11/25 no1 644 mg-C 30 mg-jose enrique 1 mg tablet (Osteo Bi-Flex Triple Strength) atorvastatin 20 mg tablet (Lipitor) 20 mg PO QPM #90 t abs 05/24/25 07/11/25 tadalafil 5 mg tablet (Cialis) 5 mg PO QDAY PRN erecti le 05/24/25 07/11/25 dysfunction #90 tabs amlodipine 5 mg tablet 5 mg PO DAILY 07/11/2507/11 carboxymethylcellulose sodium 1 % 1 drp ophthalmic (ey e) TID PRN dry 07/11/25 07/11/25 eye liquid gel drops (Refresh eye(s) Liquigel) lisinopril 20 mg tablet 20 mg PO DAILY 07/11/2502/26 metoprolol succinate 50 mg 50 mg PO DAILY 07/11/2502/26 tablet,extended release 24 hr omega 0-qaw-lcy-fish oil 1,000 mg 1 cap PO DAILY 07/1107/11/25 (120 mg-180 mg) capsule (Fish Oil) omeprazole 20 mg capsule,delayed 20 mg PO QDAC 5 07/11/25 release PHYSICAL EXAM AT DISCHARGE Vital Signs: Vital Signs x48h Temp Pulse Pulse Pulse Resp BP BP 07/12/25 18:19 97.5 F L 88 16 132/72 H 07/12/25 17:25 97.7 F 82 18 124/62 07/12/25 16:25 97.7 F 88 18 137/72 H 07/12/25 15:55 97.3 F L 80 18 144/87 H 07/12/25 15:25 97.3 F L 84 18 148/82 H 07/12/25 15:15 78 20 132/80 H 07/12/25 15:00 89 19 111/66 07/12/25 15:00 90 22 111/66 07/12/25 14:55 90 18 108/64 07/12/25 14:50 87 20 101/62 07/12/25 14:50 89 24 101/62 07/12/25 14:45 74 21 94/57 L 07/12/25 14:45 87 20 94/57 L 07/12/25 14:44 98.6 F 82 17 98/63 07/12/25 14:44 87 25 H Pulse Ox 07/12/25 18:19 99 07/12/25 17:25 100 07/12/25 16:25 98 07/12/25 15:55 98 07/12/25 15:25 97 07/12/25 15:15 99 07/12/25 15:00 96 07/12/25 15:00 95 07/12/25 14:55 97 07/12/25 14:50 97 07/12/25 14:50 98 07/12/25 14:45 96 07/12/25 14:45 96 07/12/25 14:44 98 07/12/25 14:44 98 General Appearance: positive No acute distress and Alert Eyes Bilateral: positive Normal inspection Neck: positive Nml inspection Respiratory: positive Chest non-tender, No respiratory distress and Breath sounds nml Cardiovascular: positive Regular rate & rhythm, No murmur and No gallop Peripheral Pulses: positive 2+ Abdomen: positive Non-tender and Nml bowel sounds Skin: positive Color nml, No rash, Warm and Dry Extremities: positive Non-tender and No pedal edema Neurologic/Psychiatric: positive Oriented x3 LABS 07/12/25 10:16 07/12/25 02:37 DIAGNOSTIC IMAGING Diagnostic Imaging Results: Final report reviewed and Read independently FOLLOW UP Follow Up: Follow up with PCP and Hematology TIME SPENT Time Spent in Discharge (Minutes): 33 Discharge Plan Discharge Patient Disposition: Home, Self Care Prescriptions: Continued epinephrine [EpiPen 2-Feliz] 0.3 mg/0.3 mL auto-injector 0.3 mg IM DIRECTED Rx Instructions: Administer 1 pen intramuscularly single dose for bee stings per printing specialist instructions on packaging. May be repeated in 5-15 minutes. clobetasol 0.05 % ointment 1 applic topical BID PRN (Reason: rash) Osteo Bi-Flex Triple Strength 750 mg-644 mg- 30 mg-1 mg tablet 1 tab PO DAILY cholecalciferol (vitamin D3) 25 mcg (1,000 unit) tablet 25 mcg PO QDAY coenzyme Q10 150 mg capsule 150 mg PO DAILY aspirin [Adult Aspirin Regimen] 81 mg tablet,delayed release (DR/EC) 81 mg PO DAILY Therapeutic-M 1 EACH tablet 1 ea PO DAILY metoprolol succinate 50 mg tablet extended release 24 hr 50 mg PO DAILY lisinopril 20 mg tablet 20 mg PO DAILY amlodipine 5 mg tablet 5 mg PO DAILY omeprazole 20 mg capsule,delayed release(DR/EC) 20 mg PO QDAC omega 2-bxl-vqz-fish oil [Fish Oil] 1,000 (120-180) mg capsule 1 cap PO DAILY carboxymethylcellulose sodium [Refresh Liquigel] 1 % drops, liquid gel 1 drp ophthalmic (eye) TID PRN (Reason: dry eye(s)) Rx Instructions: EACH EYE tadalafil [Cialis] 5 mg tablet 5 mg PO QDAY PRN (Reason: erectile dysfunction) Qty: 90 0RF Rx Instructions: Bridge fill due to PCP custodial atorvastatin [Lipitor] 20 mg tablet 20 mg PO QPM Qty: 90 0RF Activity Restrictions: No Restrictions Diet: Cardiac Health Concerns: You came into the hospital and were found to have a low hemoglobin level. You relayed to me that you have history of low white blood cells because of agent orange exposure. Looking back in your chart, you appear to also have anemia of this but improving. Because of your dark stools, it was suspected that you had a GI bleed on top of his baseline anemia. Your scope today, however, did not show any active bleeding. I still suspect that you had an element of GI bleeding when he first presented and this is resolved. Some general guidelines for patients with GI bleed include holding off on aspirin, NSAID such as Motrin and Aleve, alcohol abstinence, and PPI use with medication such as omeprazole. Given your history of coronary artery disease with stents, I believe he may benefit from aspirin use in spite of the risks of bleed. Please exercise caution with this, and report any signs and symptoms of bleeding to healthcare provider. I have ordered some lab work to be collected before you leave for further workup of your anemia. I would like for you to follow-up with your primary care and with hematology/oncology about this. One of the note, iron supplements can cause dark stools, so dark stools may not necessarily be related to GI bleeding Print Language: [place] Zealander Patient Instructions: Surg Dc Stand Alone Forms: PCP List Follow-up Care: Rafael Osorio FNP [Primary Care Provider, Family Practice] Vitals documented within 30 minutes of discharge?: Yes (1818)"
[2025-07-12 16:05] LABS: ABSOLUTE RETICS # AUTO 0.141 10^6/uL (0.020-0.110); RETICULOCYTE COUNT % (AUTO) 5.94 % (0.5-2.3)
[2025-07-12 17:12] LABS: % IRON SATURATION 12 % (20-50)
[2025-07-12 18:21] VITALS: BP 132/72; TEMP 97.5; O2SAT 99
== END 2025-07-12 18:20 | disposition home or self-care (01) | DRG 378 ==
LOC: ED 22:31 → ICU 23:38 → MS2 07-11 00:09
PROVIDERS: ADMIT Internal Medicine; ATTEND Internal Medicine